=== PATIENT | female | born 1950 | race Caucasian/White ===

== ENCOUNTER → 2016-12-27 | Outpatient (CLI) | payer MEDICARE, OTHER ==
--- NOTE | 2016-12-27 11:53 | XR ---
EXAMINATION TYPE: XR knee complete LT DATE OF EXAM: 12/27/2016 11:40 AM CLINICAL HISTORY: pain TECHNIQUE: Three views of the left knee are obtained. COMPARISON: None. FINDINGS: There is no acute fracture/dislocation. The tri-compartment joint spaces moderately narro wed. Spur formation is noted.. The overlying soft tissue appears unremarkable. IMPRESSION: There is no acute fracture or dislocation ICD 10 NO FRACTURE, INITIAL EVALUATION
== END | disposition home or self-care (01) ==
LOC: RADXRMAIN 10:47
PROVIDERS: ATTEND Family Medicine
DX: M25.562 Pain in left knee (principal)

== ENCOUNTER 2017-02-21 13:16 | Emergency (ER) | payer MEDICARE, OTHER ==
--- NOTE | 2017-02-21 13:58 | ED ---
General Adult HPI - General Chief complaint: Recheck/Abnormal Lab/Rx Stated complaint: needs feeding tube replaced Time Seen by Provider: 02/21/17 13:39 Source: family, RN notes reviewed Mode of arrival: wheelchair Limitations: no limitations - History of Present Illness Initial comments: 66-year-old female presents emergency Department with a chief complaint of feeding tube needing replacement. He stated that his family members. Home. They state they've had the feeding tube for about 6 months. They state they just need to replace feeding tube. There is no pain or discomfort. They state that it is leaking. they've tried to fix at home with no improvement. They state they were concerned due to the symptoms. Patient denies any recent fever, chills, shortness of breath, chest pain, back pain, abdominal pain, nausea vomiting, numbness or tingling, dysuria or hematuria, constipation or diarrhea, headaches or visual changes, or any other current symptoms. - Related Data Home Medications Medication Instructions Recorded Confirmed Carvedilol [Coreg] 12.5 mg PEG/G-TUBE BID 03/23/14 02/21/17 Oxybutynin Chloride [Ditropan] 10 mg PEG/G-TUBE TID 03/23/14 02/21/17 clonazePAM [KlonoPIN] 1 mg PEG/G-TUBE Q8HR PRN 03/23/14 02/21/17 Ascorbic Acid [Vitamin C] 500 mg PEG/G-TUBE DAILY 09/06/14 02/21/17 Cholecalciferol [Vitamin D3] 1,000 unit PEG/G-TUBE DAILY 08/19/15 02/21/17 Insulin Detemir [Levemir] 30 unit SQ DAILY 08/19/15 02/21/17 Ipratropium-Albuterol Nebulize 3 ml INHALATION RT-Q6H PRN 08/19/15 02/21/17 [Duoneb 0.5 mg-3 mg/3 ml Soln] Ferrous Sulfate [Feosol] 325 mg PEG/G-TUBE DAILY 10/31/15 02/21/17 Insulin Aspart [NovoLOG] See Protocol SQ AC-TID PRN 10/31/15 02/21/17 Loratadine [Claritin] 10 mg PEG/G-TUBE DAILY 10/31/15 02/21/17 Omeprazole [PriLOSEC] 20 mg PEG/G-TUBE AC-BRKFST 10/31/15 02/21/17 Acetaminophen [Tylenol] 650 mg PEG/G-TUBE Q6H PRN 11/15/15 02/21/17 Fluticasone/Salmeterol [Advair 1 inhalation PO RT-BID 02/21/17 02/21/17 250-50 Diskus] Furosemide [Lasix] 40 mg PEG/G-TUBE BID 02/21/17 02/21/17 QUEtiapine [SEROquel] 100 mg PO HS 02/21/17 02/21/17 traMADol HCL [Ultram] 50 mg PO Q6HR PRN 02/21/17 02/21/17 Allergies Allergy/AdvReac Type Severity Reaction Status Date / Time aspirin AdvReac Kidney Verified 02/21/17 14:33 issues cefepime AdvReac Hallucinati Verified 02/21/17 14:33 ons Review of Systems ROS Statement: Those systems with pertinent positive or pertinent negative responses have been documented in the HPI. ROS Other: All systems not noted in ROS Statement are negative. Past Medical History Past Medical History: Atrial Fibrillation, Asthma, Diabetes Mellitus, Hearing Disorder / Deafness, Hyperlipidemia, Hypertension, Renal Disease, Skin Disorder Additional Past Medical History / Comment(s): hypercholesterol History of Any Multi-Drug Resistant Organisms: None Reported Past Surgical History: No Surgical Hx Reported Additional Past Surgical History / Comment(s): PEG tube Past Anesthesia/Blood Transfusion Reactions: No Reported Reaction Past Psychological History: Anxiety Smoking Status: Never smoker Past Alcohol Use History: None Reported Additional Past Alcohol Use History / Comment(s): Patient lives at home with her boyfriend/caregiver. Past Drug Use History: None Reported - Past Family History Mother Family Medical History: No Reported History General Exam Limitations: no limitations General appearance: alert, in no apparent distress Head exam: Present: atraumatic, normocephalic, normal inspection ENT exam: Present: normal exam, mucous membranes moist Neck exam: Present: normal inspection. Absent: tenderness, meningismus, lymphadenopathy Respiratory exam: Present: normal lung sounds bilaterally. Absent: respiratory distress, wheezes, rales, rhonchi, stridor Cardiovascular Exam: Present: regular rate, normal rhythm, normal heart sounds. Absent: systolic murmur, diastolic murmur, rubs, gallop, clicks GI/Abdominal exam: Present: soft, normal bowel sounds. Absent: distended, tenderness, guarding, rebound, rigid Neurological exam: Present: alert, oriented X3 Psychiatric exam: Present: normal affect, normal mood Skin exam: Present: warm, dry, intact, normal color. Absent: rash Course Vital Signs 02/21/17 13:25 Temperature 98.1 F Pulse Rate 73 Respiratory 20 Rate Blood Pressure 142/83 O2 Sat by Pulse 98 Oximetry Medical Decision Making - Medical Decision Making 66-year-old female presents emergency Department chief complaint of needing a feeding tube replacement. At this time patient's tube was replaced with a 20- Ukrainian with an inflatable balloon. At this time x-ray does confirm placement. This time we discussed continued follow-up and return parameters. Patient family stated he understood all cushions have been answered. They will be discharged. - Radiology Data Radiology results: report reviewed, image reviewed Disposition Clinical Impression: Complication of feeding tube, Encounter for feeding tube placement Disposition: HOME SELF-CARE Condition: Stable Instructions: Percutaneous Endoscopic Gastrostomy (ED), How to Use and Care for Your PEG Tube (ED) Additional Instructions: Please follow up with family doctor if symptoms have not improved over the next two days. Please return to the emergency room if your symptoms increase or worsen or for any other concerns. Referrals: Vishnu Malone MD [Primary Care Provider] - 1-2 days Time of Disposition: 16:53
--- NOTE | 2017-02-21 16:05 | XR ---
EXAMINATION TYPE: XR abdomen 2V DATE OF EXAM: 02/21/2017 COMPARISON: NONE HISTORY: Pain TECHNIQUE: 2 AP supine views FINDINGS: Feeding tube spherical balloon is situated over the gastric body. The bowel gas pattern is unremarkable, other than marked lam colonic stool volume. Soft tissues and skeletal structures negative for acute findings. Note: Supine radiography cannot exclude pneumoperitoneum. IMPRESSION: FEEDING TUBE.
--- NOTE | 2017-02-21 16:48 | XR ---
EXAMINATION TYPE: XR abdomen 1V - with Omnipaque 350 injection PEG-tube DATE OF EXAM: 02/21/2017 COMPARISON: NONE HISTORY: Replaced PEG tube TECHNIQUE: Supine radiograph was obtained medially following PEG tube catheter injection of 2 ounces Omnipaque 350. FINDINGS: The contrast opacifies the stomach, verifying anatomic PEG tube placement. No incidental findings, other than moderate enlargement of the cardiac silhouette. IMPRESSION: PEG tube.
[2017-02-21 17:22] VITALS: BP 131/59; PULSE 85; RESP 18; TEMP 98
== END 2017-02-21 17:17 | disposition home or self-care (01) ==
LOC: EC 13:16
DX: K94.29 Other complications of gastrostomy (principal); J45.909 Unspecified asthma, uncomplicated; E11.9 Type 2 diabetes mellitus without complications; I10 Essential (primary) hypertension; Z88.6 Allergy status to analgesic agent; Z88.8 Allergy status to other drugs, medicaments and biological substances; Z79.4 Long term (current) use of insulin; Z79.51 Long term (current) use of inhaled steroids; Z79.899 Other long term (current) drug therapy
CPT/HCPCS: 99282; 43760; 74000; Q9967

== ENCOUNTER 2017-05-21 17:53 | Emergency (ER) | payer MEDICARE, OTHER ==
--- NOTE | 2017-05-21 18:50 | ED ---
General Adult HPI - General Source: patient, RN notes reviewed, old records reviewed Mode of arrival: wheelchair Limitations: no limitations <Fina Brewer - Last Filed: 05/21/17 20:27> <Kamaljit Sky - Last Filed: 05/21/17 22:23> - General Chief complaint: Recheck/Abnormal Lab/Rx Stated complaint: Peg Tube plugged Time Seen by Provider: 05/21/17 18:04 - History of Present Illness Initial comments: 66-year-old female presents emergency Department with chief complaint of feeding tube needing replacement. Patient family reports that it is clogged. They tried to flush it with saline, and Coke. He stated there is been no help with this. Patient's caregiver relates that they put all of her medications through the PEG tube. Patient caregiver relates that they had the PEG tube replaced in February in the emergency department. Patient denies any fever or chills, chest pain, shortness breath. Denies any specific abdominal pain. Patient states that her PEG tube was originally placed by Dr. craig. (Fina Brewer) - Related Data Home Medications Medication Instructions Recorded Confirmed Oxybutynin Chloride [Ditropan] 10 mg PEG/G-TUBE TID 03/23/14 05/21/17 clonazePAM [KlonoPIN] 0.5 mg PEG/G-TUBE TID 03/23/14 05/21/17 Ascorbic Acid [Vitamin C] 500 mg PEG/G-TUBE DAILY 09/06/14 05/21/17 Cholecalciferol [Vitamin D3] 1,000 unit PEG/G-TUBE DAILY 08/19/15 05/21/17 Insulin Detemir [Levemir] 30 unit SQ DAILY 08/19/15 05/21/17 Ipratropium-Albuterol Nebulize 3 ml INHALATION RT-Q6H PRN 08/19/15 05/21/17 [Duoneb 0.5 mg-3 mg/3 ml Soln] Ferrous Sulfate [Feosol] 325 mg PEG/G-TUBE DAILY 10/31/15 05/21/17 Insulin Aspart [NovoLOG] 10 unit SQ AC-TID PRN 10/31/15 05/21/17 Omeprazole [PriLOSEC] 20 mg PEG/G-TUBE AC-BRKFST 10/31/15 05/21/17 Acetaminophen [Tylenol] 650 mg PEG/G-TUBE Q6H PRN 11/15/15 05/21/17 Fluticasone/Salmeterol [Advair 1 puff INHALATION RT-BID 02/21/17 05/21/17 250-50 Diskus] QUEtiapine [SEROquel] 100 mg PEG/G-TUBE HS 02/21/17 05/21/17 traMADol HCL [Ultram] 50 mg PEG/G-TUBE Q6HR PRN 02/21/17 05/21/17 Allopurinol [Zyloprim] 100 mg PEG/G-TUBE DAILY 05/21/17 05/21/17 Carvedilol [Coreg] 3.125 mg PEG/G-TUBE BID 05/21/17 05/21/17 Furosemide [Lasix] 40 mg PEG/G-TUBE BID 05/21/17 05/21/17 Losartan Potassium [Cozaar] 25 mg PEG/G-TUBE DAILY 05/21/17 05/21/17 Simvastatin [Zocor] 40 mg PEG/G-TUBE HS 05/21/17 05/21/17 Allergies Allergy/AdvReac Type Severity Reaction Status Date / Time aspirin AdvReac Kidney Verified 05/21/17 18:42 issues cefepime AdvReac Hallucinati Verified 05/21/17 18:42 ons Review of Systems ROS Other: All systems not noted in ROS Statement are negative. <Fina Brewer - Last Filed: 05/21/17 20:27> ROS Other: All systems not noted in ROS Statement are negative. <Kamaljit Sky - Last Filed: 05/21/17 22:23> ROS Statement: Those systems with pertinent positive or pertinent negative responses have been documented in the HPI. Past Medical History Past Medical History: Atrial Fibrillation, Asthma, Diabetes Mellitus, Hearing Disorder / Deafness, Hyperlipidemia, Hypertension, Renal Disease, Skin Disorder Additional Past Medical History / Comment(s): hypercholesterol, basestem stroke , difficulty swallowing History of Any Multi-Drug Resistant Organisms: None Reported Past Surgical History: No Surgical Hx Reported Additional Past Surgical History / Comment(s): PEG tube Past Anesthesia/Blood Transfusion Reactions: No Reported Reaction Past Psychological History: Anxiety Smoking Status: Never smoker Past Alcohol Use History: None Reported Past Drug Use History: None Reported - Past Family History Mother Family Medical History: No Reported History <Fina Brewer - Last Filed: 05/21/17 20:27> General Exam Limitations: no limitations General appearance: alert, in no apparent distress Head exam: Present: atraumatic, normocephalic, normal inspection Eye exam: Present: normal appearance, PERRL, EOMI. Absent: scleral icterus, conjunctival injection, periorbital swelling ENT exam: Present: normal exam, mucous membranes moist Neck exam: Present: normal inspection. Absent: tenderness, meningismus, lymphadenopathy Respiratory exam: Present: normal lung sounds bilaterally. Absent: respiratory distress, wheezes, rales, rhonchi, stridor Cardiovascular Exam: Present: regular rate, normal rhythm, normal heart sounds. Absent: systolic murmur, diastolic murmur, rubs, gallop, clicks GI/Abdominal exam: Present: soft, normal bowel sounds, other (20-Swazi PEG tube noted. Mild erythema and drainage noted around the ostomy site.). Absent : distended, tenderness, guarding, rebound, rigid Extremities exam: Present: normal inspection, full ROM, normal capillary refill. Absent: tenderness, pedal edema, joint swelling, calf tenderness Back exam: Present: normal inspection Neurological exam: Present: alert, oriented X3, CN II-XII intact Psychiatric exam: Present: normal affect, normal mood Skin exam: Present: warm, dry, intact, normal color. Absent: rash <Fina Brewer - Last Filed: 05/21/17 20:27> <Kamaljit Sky - Last Filed: 05/21/17 22:23> - General Exam Comments Initial Comments: 67-year-old female. No acute distress. (Fina Brewer) Course <Fina Brewer - Last Filed: 05/21/17 20:27> <Kamaljit Sky - Last Filed: 05/21/17 22:23> Vital Signs 05/21/17 05/21/17 17:54 19:38 Temperature 98.6 F 98.3 F Pulse Rate 87 80 Respiratory 18 18 Rate Blood Pressure 136/80 149/71 O2 Sat by Pulse 95 96 Oximetry - Reevaluation(s) Reevaluation #1: 05/21/17 20:28 I attempted multiple times to flush with normal saline and soda. There is a significant clot at the end of the PEG tube. At this time I tried to remove the PEG tube. I drained over 10 mL from the catheter balloon. When I do attempt to pull at the PEG tube there is significant resistance. When I pull at the peg tube with further force the patient yells in increasing pain. I also attempted to remove it with Dr. Berkowitz and he does not feel comfortable removing it at this time. Patient case discussed with Dr. Olivo at 8:30. Patient case of will be taken over by Dr. Olivo after this time. (Fina Brewer) 05/21/17 21:56 Case was endorsed to myself. Patient was reevaluated and PEG tube was completely removed without difficulty. Previous x-ray question placement of the PEG tube. PEG tube was replaced without difficulty. Repeat x-ray with contrast will be ordered. Family states he did use a small flexible wire to try to clean out the inside of the lumen. Family states he did not go past the skin with this and he is certain of this. Family was made aware that if he did go past the skin and then computed tomography scan would be indicated to rule out any sort of potential bowel injury. Family states this is not necessary. ( Kamaljit Sky) Procedures - Feeding Tube Replacement Reason for Replacement: not functioning/damaged Initial Tube Inserted: greater than 2 weeks Type of Tube: other (Peg) Use of Tube: medications and feeding Insertion Site Prior to Procedure: clean Tube Used for Reinsertion: other (PEG tube) Anesthesia Used: other anesthetic (Topical lidocaine) Amount of Anesthesia Used (mls): 2 Verification of Placement: gastrografin injection Tube Secured by: G-tube attachment device Patient Tolerated Procedure: well, no complications <Kamaljit Sky - Last Filed: 05/21/17 22:23> Medical Decision Making <Fina Brewer - Last Filed: 05/21/17 20:27> - Radiology Data Radiology results: image reviewed (Original x-ray has question of contrast in the gastric lumen versus other. Repeat x-ray post PEG tube replacement shows appropriate placement with Gastrografin in the gastric lumen.) <Kamaljit Sky - Last Filed: 05/21/17 22:23> - Medical Decision Making 67-year-old female with a history of PEG tube placed in the ER in February 2016 concerning that the PEG tube is clogged. Patient did tell PEG tube originally placed by Dr. Craig over a year ago. Multiple times were made to unclog the PEG tube with saline, as well as Coke. I attempted to remove the peg tube to replace it with another, there was significant resistance. I did deflate the full catheter at the end with over 10 mL of fluid. When I attempt to remove the Peg Tube, patient yells in pain. It feels as if there is a large bolus preventing the tube to be removed. KUB ordered. Patient's case was handed over to Dr. Barahona 8:30 PM. (Fina Brewer) Patient reexamined and symptom-free. Family advised to have patient follow-up with Dr. Goins tomorrow for further evaluation. Advised to return for any problems with PEG tube or pain or fever. PEG tube did flush and return fluid without difficulty. (Kamaljit Sky) Disposition <Fina Brewer - Last Filed: 05/21/17 20:27> <Kamaljit Sky - Last Filed: 05/21/17 22:23> Clinical Impression: S/P percutaneous endoscopic gastrostomy (PEG) tube placement, PEG tube malfunction Disposition: HOME SELF-CARE Condition: Stable Instructions: How to Use and Care for Your PEG Tube (ED) Additional Instructions: Please follow-up with your primary care physician and surgeon tomorrow for further evaluation of PEG tube. Return for fever, abdominal pain, peg tube not working, worsening symptoms or any other concerns. Referrals: Vishnu Malone MD [Primary Care Provider] - 1-2 days Calvin Genao MD [Medical Doctor] - 1-2 days
[2017-05-21] MEDS ORDERED: LIDOCAINE URO-JET JELLY 2% 5 ML KIT URETHRAL ONE (19:28)
--- NOTE | 2017-05-21 21:04 | XR ---
EXAMINATION TYPE: XR KUB portable DATE OF EXAM: 05/21/2017 COMPARISON: 02/21/2017 HISTORY: 67-year-old female with a PEG tube placement, pain. TECHNIQUE: 5 mL of Omnipaque 350 was injected through the patient's PEG tube. FINDINGS: PEG tube is present injecting over the left upper quadrant. Motion artifacts due to patient's large b lauren habitus. Some amorphous collection of contrast is suggested at the peripheral left upper quadrant . Unable to definitively characterize this as within the gastric lumen. Nonspecific, overall nonobstr uctive bowel gas pattern. IMPRESSION: There is a PEG tube present. Injection of the PEG tube shows amorphous collection of contrast in the peripheral left upper quadrant. Unable to definitively characterize this as within the gastric lumen. Consider repeat injection with a higher quality exam in the department. Displaced catheter not exclu ded at this time.
--- NOTE | 2017-05-21 22:06 | XR ---
EXAMINATION TYPE: XR abdomen 1V with injection DATE OF EXAM: 05/21/2017 CLINICAL DATA: 67-year-old female assess PEG tube placement, [facility] COMPARISON: Earlier today TECHNIQUE: 40 mL Omnipaque 350 was injected through the patient's PEG tube. FINDINGS: PEG tube injection shows opacification of the gastric lumen. Nonspecific, overall nonobstructive adry l gas pattern. Supine imaging limited for assessment of free air. IMPRESSION: Injection through the patient's PEG tube shows contrast opacifying the gastric lumen suggesting appro priate catheter positioning.
[2017-05-21 22:48] VITALS: BP 132/71; PULSE 77; RESP 16; TEMP 98.1
== END 2017-05-21 22:46 | disposition home or self-care (01) ==
LOC: EC 17:53
DX: K94.23 Gastrostomy malfunction (principal); I48.91 Unspecified atrial fibrillation; J45.909 Unspecified asthma, uncomplicated; E11.9 Type 2 diabetes mellitus without complications; I10 Essential (primary) hypertension; E78.00 Pure hypercholesterolemia, unspecified; F41.9 Anxiety disorder, unspecified; Z88.1 Allergy status to other antibiotic agents; Z88.6 Allergy status to analgesic agent; Z79.02 Long term (current) use of antithrombotics/antiplatelets; Z79.4 Long term (current) use of insulin; Z79.51 Long term (current) use of inhaled steroids; Z79.899 Other long term (current) drug therapy
CPT/HCPCS: 99283; 43760; 74000 ×2; Q9967

== ENCOUNTER 2017-05-26 18:34 | Emergency (ER) | payer MEDICARE, OTHER ==
[2017-05-26 19:23] VITALS: RESP 20
[2017-05-26] MEDS ORDERED: LIDOCAINE URO-JET JELLY 2% 5 ML KIT URETHRAL ONE ×2 (20:48→20:49)
--- NOTE | 2017-05-26 20:55 | ED ---
General Adult HPI - General Chief complaint: Recheck/Abnormal Lab/Rx Stated complaint: PLUGGED PEG TUBE Time Seen by Provider: 05/26/17 19:34 Source: patient Mode of arrival: wheelchair Limitations: no limitations - History of Present Illness Initial comments: 67 years old female she is here for about feeding tube, she was here a few days ago. To was replaced at that point, she does get her pills crushed and pushed 72 family noticed any caregiver noticed that it was not working this after this afternoon. She denies any abdominal pain no fever no chills him in review of system is absolutely normal except the above blocked feeding tube - Related Data Home Medications Medication Instructions Recorded Confirmed Oxybutynin Chloride [Ditropan] 10 mg PEG/G-TUBE TID 03/23/14 05/26/17 clonazePAM [KlonoPIN] 0.5 mg PEG/G-TUBE TID 03/23/14 05/26/17 Ascorbic Acid [Vitamin C] 500 mg PEG/G-TUBE DAILY 09/06/14 05/26/17 Insulin Detemir [Levemir] 30 unit SQ DAILY 08/19/15 05/26/17 Ferrous Sulfate [Feosol] 325 mg PEG/G-TUBE DAILY 10/31/15 05/26/17 Insulin Aspart [NovoLOG] See Protocol SQ AC-TID 10/31/15 05/26/17 Omeprazole [PriLOSEC] 20 mg PEG/G-TUBE DAILY 10/31/15 05/26/17 Acetaminophen [Tylenol] 650 mg PEG/G-TUBE Q6H PRN 11/15/15 05/26/17 QUEtiapine [SEROquel] 100 mg PEG/G-TUBE HS 02/21/17 05/26/17 traMADol HCL [Ultram] 50 mg PEG/G-TUBE Q6HR PRN 02/21/17 05/26/17 Allopurinol [Zyloprim] 100 mg PEG/G-TUBE DAILY 05/21/17 05/26/17 Carvedilol [Coreg] 3.125 mg PEG/G-TUBE BID 05/21/17 05/26/17 Furosemide [Lasix] 40 mg PEG/G-TUBE BID 05/21/17 05/26/17 Losartan Potassium [Cozaar] 25 mg PEG/G-TUBE DAILY 05/21/17 05/26/17 Simvastatin [Zocor] 40 mg PEG/G-TUBE HS 05/21/17 05/26/17 Albuterol Nebulized [Ventolin 2.5 mg INHALATION RT-Q6H PRN 05/26/17 05/26/17 Nebulized] Cholecalciferol [Vitamin D3] 400 unit PEG/G-TUBE DAILY 05/26/17 05/26/17 Fluticasone/Salmeterol [Advair 1 puff INHALATION RT-BID 05/26/17 05/26/17 500-50 Diskus] Allergies Allergy/AdvReac Type Severity Reaction Status Date / Time aspirin AdvReac Kidney Verified 05/26/17 20:28 issues cefepime AdvReac Hallucinati Verified 05/26/17 20:28 ons Review of Systems ROS Statement: Those systems with pertinent positive or pertinent negative responses have been documented in the HPI. ROS Other: All systems not noted in ROS Statement are negative. Past Medical History Past Medical History: Atrial Fibrillation, Asthma, Diabetes Mellitus, Hearing Disorder / Deafness, Hyperlipidemia, Hypertension, Renal Disease, Skin Disorder Additional Past Medical History / Comment(s): hypercholesterol, basestem stroke , difficulty swallowing History of Any Multi-Drug Resistant Organisms: None Reported Past Surgical History: No Surgical Hx Reported Additional Past Surgical History / Comment(s): PEG tube Past Anesthesia/Blood Transfusion Reactions: No Reported Reaction Past Psychological History: Anxiety Smoking Status: Never smoker Past Alcohol Use History: None Reported Past Drug Use History: None Reported - Past Family History Mother Family Medical History: No Reported History General Exam - General Exam Comments Initial Comments: General: The patient is awake and alert, in no distress, and does not appear acutely ill. Skin: Skin is warm and dry and no rashes or lesions are noted. Eye: Pupils are equal, round and reactive to light, extra-ocular movements are intact; there is normal conjunctiva bilaterally. Ears, nose, mouth and throat: There are moist mucous membranes and no oral lesions. Neck: The neck is supple, there is no tenderness or JVD. Cardiovascular: There is a regular rate and rhythm. No murmur, rub or gallop is appreciated. Respiratory: To auscultation bilateral, no wheezing no rhonchi no distress respiratory espinal noticed Gastrointestinal: Soft, soft nontender positive bowel sounds no guarding no rebounds noticed mild erythema around the dressing area after feeding tube Back: There is no tenderness to palpation in the midline. There is no obvious deformity. Musculoskeletal: Normal ROM, no tenderness, There is no pedal edema. There is no calf tenderness or swelling. No cords were appreciated. Neurological: CN II-XII intact, Cranial nerves III through XII are intact. There are no obvious motor or sensory deficits. Coordination appears grossly intact. Speech is normal. Psychiatric: Cooperative, appropriate mood & affect, normal judgment. Limitations: no limitations Course Vital Signs 05/26/17 05/26/17 18:50 19:22 Temperature 100.1 F H Pulse Rate 83 98 Respiratory 18 20 Rate Blood Pressure 97/72 130/73 O2 Sat by Pulse 95 95 Oximetry Procedures - Feeding Tube Replacement Reason for Replacement: not functioning/damaged Initial Tube Inserted: less than 2 weeks Type of Tube: gastrostomy Use of Tube: medications and feeding Insertion Site Prior to Procedure: clean Anesthesia Used: Lidocaine 1% Amount of Anesthesia Used (mls): 5 Uzbek Tube Size (F): 20 Verification of Placement: auscultation Tube Secured by: tape/dressing Patient Tolerated Procedure: well (no complication) Disposition Clinical Impression: Visit for feeding tube placement Disposition: HOME SELF-CARE Condition: Good Referrals: Vishnu Malone MD [Primary Care Provider] - 1-2 days
[2017-05-26 21:13] VITALS: BP 152/71; PULSE 87; TEMP 98.3
== END 2017-05-26 21:10 | disposition home or self-care (01) ==
LOC: EC 18:34
DX: Z43.1 Encounter for attention to gastrostomy (principal); I48.91 Unspecified atrial fibrillation; J45.909 Unspecified asthma, uncomplicated; E11.9 Type 2 diabetes mellitus without complications; E78.5 Hyperlipidemia, unspecified; I10 Essential (primary) hypertension; F41.9 Anxiety disorder, unspecified; Z79.4 Long term (current) use of insulin; Z79.51 Long term (current) use of inhaled steroids; Z79.899 Other long term (current) drug therapy; Z88.1 Allergy status to other antibiotic agents; Z88.6 Allergy status to analgesic agent
CPT/HCPCS: 43760; 99282

== ENCOUNTER → 2017-06-16 | Outpatient (CLI) | payer MEDICARE, OTHER ==
[2017-06-16 12:40] LABS: Anisocytosis Slight; CH 31.6; CHCM 31.9; HCT 40.1 % (34.0-46.0); HDW 2.55; HGB 12.5 gm/dL (11.4-16.0); MCH 31.1 pg (25.0-35.0); MCHC 31.2 g/dL (31.0-37.0); MCV 99.7 fL (80.0-100.0); Macrocytosis Slight; Mean Platelet Volume 8.1; RBC 4.03 m/uL (3.80-5.40); WBC 10.3 k/uL (3.8-10.6)
[2017-06-16 12:50] LABS: Anion Gap 13 mmol/L; Blood Urea Nitrogen 34 mg/dL (7-17); Calcium 9.7 mg/dL (8.4-10.2); Carbon Dioxide 35 mmol/L (22-30); Chloride 96 mmol/L (98-107); Glucose 157 mg/dL (74-99); Magnesium 2.3 mg/dL (1.6-2.3); Non-African American GFR(MDRD) 58 (>60 ml/min/1.73 sqM); Phosphorous 4.2 mg/dL (2.5-4.5); Potassium 4.3 mmol/L (3.5-5.1); Sodium 144 mmol/L (137-145); Uric Acid 7.1 mg/dL (3.7-7.4)
[2017-06-16 18:24] LABS: Iron Saturation 36.47 (12.00-45.00)
== END | disposition home or self-care (01) ==
LOC: LABWHC1 12:06
PROVIDERS: ATTEND Nurse Practitioner Family
DX: N18.3 Chronic kidney disease, stage 3 (moderate) (principal); D64.9 Anemia, unspecified; R80.9 Proteinuria, unspecified; E55.9 Vitamin D deficiency, unspecified; M10.9 Gout, unspecified
CPT/HCPCS: 36415; 80048; 82306; 82728; 83540; 83550; 83735; 83970; 84100; 84550; 85027

== ENCOUNTER → 2017-07-04 | Outpatient (CLI) | payer MEDICARE, OTHER ==
[2017-07-04 12:14] LABS: Basophils % (A) 0 %; CH 31.1; CHCM 31.6; Eosinophils # (A) 0.4 k/uL (0-0.7); Eosinophils % (A) 3 %; HCT 39.4 % (34.0-46.0); HDW 2.56; HGB 12.3 gm/dL (11.4-16.0); Hypochromasia Slight; Luc # (Auto) 0.12; Luc % (Auto) 1; Lymphocytes # (A) 1.5 k/uL (1.0-4.8); Lymphocytes % (A) 14 %; MCH 30.9 pg (25.0-35.0); MCHC 31.1 g/dL (31.0-37.0); MCV 99.2 fL (80.0-100.0); Macrocytosis Slight; Mean Platelet Volume 7.9; Monocytes # (A) 0.4 k/uL (0-1.0); Monocytes % (A) 4 %; Neutrophils # (A) 8.4 k/uL (1.3-7.7); Neutrophils % (A) 77 %; RBC 3.97 m/uL (3.80-5.40); RDW 15.8 % (11.5-15.5); WBC 10.9 k/uL (3.8-10.6)
[2017-07-04 12:40] LABS: ALT 27 U/L (9-52); AST 23 U/L (14-36); Alkaline Phosphatase 101 U/L (38-126); Anion Gap 15 mmol/L; Blood Urea Nitrogen 52 mg/dL (7-17); Calcium 9.7 mg/dL (8.4-10.2); Carbon Dioxide 28 mmol/L (22-30); Chloride 100 mmol/L (98-107); Cholesterol 126 mg/dL (<200); Glucose 136 mg/dL (74-99); HDL Cholesterol 40 mg/dL (40-60); Non-African American GFR(MDRD) 55 (>60 ml/min/1.73 sqM); Potassium 4.2 mmol/L (3.5-5.1); Sodium 143 mmol/L (137-145); Total Bilirubin 0.4 mg/dL (0.2-1.3); Total Protein 8.4 g/dL (6.3-8.2)
== END | disposition home or self-care (01) ==
LOC: LABWHC1 11:26
PROVIDERS: ATTEND Family Medicine
DX: E78.5 Hyperlipidemia, unspecified (principal); E55.9 Vitamin D deficiency, unspecified; R53.81 Other malaise; Z13.220 Encounter for screening for lipoid disorders
CPT/HCPCS: 36415; 80053; 80061; 82306; 84439; 84443; 85025

== ENCOUNTER → 2017-12-05 | Outpatient (CLI) | payer MEDICARE, OTHER ==
--- NOTE | 2017-12-07 12:40 | MM ---
Reason for exam: screening (asymptomatic). Last mammogram was performed 2 years and 10 months ago. History: Patient is postmenopausal. Family history of breast cancer in maternal cousin. Took hormonal contraceptives for 2 years beginning at age 23. Physical Findings: A clinical breast exam by your physician is recommended on an annual basis and results should be correlated with mammographic findings. MG Screening Mammo w CAD Bilateral CC and MLO view(s) were taken. Prior study comparison: January 22, 2015, bilateral MG screening mammo w CAD. July 30, 2012, bilateral digital screening mammo w/CAD. There are scattered fibroglandular densities. Scattered vascular and secretory calcifications. Patient limitations pectoralis could not be included on the MLO views. No significant changes when compared with prior studies. ASSESSMENT: Negative, BI-RAD 1 RECOMMENDATION: Routine screening mammogram of both breasts in 1 year. Manage patient on a clinical basis. Yeast infection along undersurface of the breast.
== END | disposition home or self-care (01) ==
LOC: RADMAMWWP 13:09
PROVIDERS: ATTEND Family Medicine
DX: Z12.31 Encounter for screening mammogram for malignant neoplasm of breast (principal)
CPT/HCPCS: 77067

== ENCOUNTER → 2017-12-05 | Outpatient (CLI) | payer MEDICARE, OTHER ==
[2017-12-05 14:55] LABS: Calcium 10.2 mg/dL (8.4-10.2); Magnesium 2.2 mg/dL (1.6-2.3); Phosphorus 3.9 mg/dL (2.5-4.5); Potassium 4.7 mmol/L (3.5-5.1); Uric Acid 7.9 mg/dL (3.7-7.4)
[2017-12-05 15:32] LABS: Basophils # (A) 0.1 k/uL (0-0.2); Basophils % (A) 0 %; Eosinophils # (A) 0.2 k/uL (0-0.7); Eosinophils % (A) 1 %; HCT 43.6 % (34.0-46.0); HGB 13.5 gm/dL (11.4-16.0); Hypochromasia Slight; Lymphocytes # (A) 1.3 k/uL (1.0-4.8); Lymphocytes % (A) 7 %; MCH 30.4 pg (25.0-35.0); Mean Platelet Volume 9.3; Monocytes # (A) 0.5 k/uL (0-1.0); Monocytes % (A) 3 %; Neutrophils # (A) 16.1 k/uL (1.3-7.7); Neutrophils % (A) 88 %; Platelet Count 186 k/uL (150-450); RBC 4.44 m/uL (3.80-5.40); WBC 18.3 k/uL (3.8-10.6)
[2017-12-05 19:37] LABS: Iron Saturation 22.07 (12.00-45.00)
[2017-12-05 19:46] LABS: Vitamin D 25 Hydroxy 41.1 ng/mL (30.0-100.0)
[2017-12-05 20:44] LABS: Parathyroid Hormone Intact 63.4 pg/mL (14.0-72.0)
== END | disposition home or self-care (01) ==
LOC: LABWHC1 13:54
PROVIDERS: ATTEND Nurse Practitioner Family
DX: R80.9 Proteinuria, unspecified (principal); M10.9 Gout, unspecified; N39.0 Urinary tract infection, site not specified; D63.1 Anemia in chronic kidney disease; N18.3 Chronic kidney disease, stage 3 (moderate); N25.81 Secondary hyperparathyroidism of renal origin
CPT/HCPCS: 36415; 80048; 82306; 82728; 83540; 83550; 83735; 83970; 84100; 84550; 85025

== ENCOUNTER 2018-03-03 14:42 | Inpatient (IN) | payer MEDICARE, OTHER ==
[2018-03-03] MEDS ORDERED: SODIUM CHLORIDE 0.9% 1,000 ML IV ONE ×2 (14:59→16:15)
--- NOTE | 2018-03-03 15:01 | ED ---
General Adult HPI - General Chief complaint: Altered Mental Status Stated complaint: Sepsis Time Seen by Provider: 03/03/18 14:59 Source: patient, EMS, RN notes reviewed, old records reviewed Mode of arrival: EMS Limitations: altered mental status - History of Present Illness Initial comments: 67-year-old female presenting with altered mental status. According to EMS patient has had progressive weakness and confusion over the past 4 days. EMS did report an elevated temperature at 101. Patient is confused and unable to contribute to the history. According EMS patient was being treated for urinary tract infection. - Related Data Home Medications Medication Instructions Recorded Confirmed Oxybutynin Chloride [Ditropan] 10 mg PEG/G-TUBE TID 03/23/14 03/03/18 clonazePAM [KlonoPIN] 0.5 mg PEG/G-TUBE TID 03/23/14 03/03/18 Ascorbic Acid [Vitamin C] 500 mg PEG/G-TUBE DAILY 09/06/14 03/03/18 Insulin Detemir [Levemir] 30 unit SQ DAILY 08/19/15 03/03/18 Ferrous Sulfate [Feosol] 325 mg PEG/G-TUBE DAILY 10/31/15 03/03/18 Insulin Aspart [NovoLOG 10 unit SQ AC-TID 10/31/15 03/03/18 (formulary)] Omeprazole [PriLOSEC] 20 mg PEG/G-TUBE DAILY 10/31/15 03/03/18 QUEtiapine [SEROquel] 100 mg PEG/G-TUBE HS 02/21/17 03/03/18 traMADol HCL [Ultram] 50 mg PEG/G-TUBE Q6HR PRN 02/21/17 03/03/18 Allopurinol [Zyloprim] 100 mg PEG/G-TUBE DAILY 05/21/17 03/03/18 Carvedilol [Coreg] 3.125 mg PEG/G-TUBE BID 05/21/17 03/03/18 Furosemide [Lasix] 40 mg PEG/G-TUBE BID 05/21/17 03/03/18 Losartan Potassium [Cozaar] 25 mg PEG/G-TUBE DAILY 05/21/17 03/03/18 Simvastatin [Zocor] 40 mg PEG/G-TUBE HS 05/21/17 03/03/18 Albuterol Nebulized [Ventolin 2.5 mg INHALATION RT-Q6H PRN 05/26/17 03/03/18 Nebulized] Cholecalciferol [Vitamin D3] 400 unit PEG/G-TUBE DAILY 05/26/17 03/03/18 Fluticasone/Salmeterol [Advair 1 puff INHALATION RT-BID 05/26/17 03/03/18 500-50 Diskus] Albuterol Inhaler [Ventolin Hfa 2 puff INHALATION RT-Q4H PRN 03/03/18 03/03/18 Inhaler] Ondansetron [Zofran ODT] 4 mg PO Q8HR PRN 03/03/18 03/03/18 Allergies Allergy/AdvReac Type Severity Reaction Status Date / Time aspirin AdvReac Kidney Verified 03/03/18 15:22 issues cefepime AdvReac Hallucinati Verified 03/03/18 15:22 ons Review of Systems ROS Statement: Those systems with pertinent positive or pertinent negative responses have been documented in the HPI. ROS Other: All systems not noted in ROS Statement are negative. Past Medical History Past Medical History: Atrial Fibrillation, Asthma, Diabetes Mellitus, Hearing Disorder / Deafness, Hyperlipidemia, Hypertension, Renal Disease, Skin Disorder Additional Past Medical History / Comment(s): hypercholesterol, basestem stroke , difficulty swallowing History of Any Multi-Drug Resistant Organisms: None Reported Past Surgical History: No Surgical Hx Reported Additional Past Surgical History / Comment(s): PEG tube Past Anesthesia/Blood Transfusion Reactions: No Reported Reaction Past Psychological History: Anxiety Smoking Status: Never smoker Past Alcohol Use History: None Reported Past Drug Use History: None Reported - Past Family History Mother Family Medical History: No Reported History General Exam Limitations: altered mental status General appearance: lethargic Head exam: Present: atraumatic, normocephalic Eye exam: Present: normal appearance, PERRL ENT exam: Present: mucous membranes dry Neck exam: Present: normal inspection. Absent: tenderness, meningismus Respiratory exam: Present: rhonchi, decreased breath sounds Cardiovascular Exam: Present: regular rate, normal rhythm GI/Abdominal exam: Present: soft, distended. Absent: tenderness, guarding Extremities exam: Present: normal inspection, normal capillary refill. Absent: pedal edema Neurological exam: Present: motor sensory deficit Skin exam: Present: warm, dry, intact. Absent: cyanosis, diaphoretic Course Vital Signs 03/03/18 03/03/18 03/03/18 14:45 15:12 15:50 Temperature 98.8 F Pulse Rate 91 87 87 Respiratory 20 22 20 Rate Blood Pressure 113/59 102/55 106/56 O2 Sat by Pulse 95 98 97 Oximetry 03/03/18 03/03/18 16:45 17:56 Temperature 98.8 F Pulse Rate 89 89 Respiratory 20 20 Rate Blood Pressure 106/53 134/80 O2 Sat by Pulse 96 98 Oximetry EKG Findings - EKG Comments: EKG Findings:: EKG: Atrial fibrillation, left bundle, PVC, left axis deviation, rate of 94, QRS duration 156, QTC 507, patient has history of left bundle reviewed on previous EKG. Medical Decision Making - Medical Decision Making 67-year-old female presenting with worsening confusion and weakness. Patient does have history of chronic renal failure. Laboratory studies reveal a creatinine of 4.0 from recent baseline of 0.90. She does appear very dehydrated on exam. She has a BUN of 111 which is likely the cause of her confusion. Mild leukocytosis at 12.3, as well as turbid urine with greater than 182 white blood cells. This may also be contributing to her altered mental status and weakness. CT shows no intercranial hemorrhage, there is severe sphenoid sinusitis. Chest x-ray shows pulmonary vascular congestion versus pneumonia. Patient is started on antibiotics and given IV hydration. She will be admitted for further antibiotics and IV hydration. Cardiology and nephrology will be placed on consult. Case is discussed with Dr. Alonzo, who will accept the admission. - Lab Data Result diagrams: 03/03/18 15:00 03/03/18 15:00 Lab Results 03/03/18 03/03/18 03/03/18 Range/Units 14:46 15:00 15:00 WBC 12.3 H (3.8-10.6) k/uL RBC 3.26 L (3.80-5.40) m/uL Hgb 10.1 L (11.4-16.0) gm/dL Hct 31.2 L (34.0-46.0) % MCV 95.7 (80.0-100.0) fL MCH 31.1 (25.0-35.0) pg MCHC 32.5 (31.0-37.0) g/dL RDW 15.3 (11.5-15.5) % Plt Count 176 (150-450) k/uL Neutrophils % 85 % Lymphocytes % 7 % Monocytes % 4 % Eosinophils % 2 % Basophils % 0 % Neutrophils # 10.5 H (1.3-7.7) k/uL Lymphocytes # 0.8 L (1.0-4.8) k/uL Monocytes # 0.5 (0-1.0) k/uL Eosinophils # 0.2 (0-0.7) k/uL Basophils # 0.0 (0-0.2) k/uL PT (9.0-12.0) sec INR (<1.2) APTT (22.0-30.0) sec VBG pH (7.31-7.41) VBG pCO2 (37-51) mmHg VBG HCO3 (24-28) mmol/L Sodium (137-145) mmol/L Potassium (3.5-5.1) mmol/L Chloride (98-107) mmol/L Carbon Dioxide (22-30) mmol/L Anion Gap mmol/L BUN (7-17) mg/dL Creatinine (0.52-1.04) mg/dL Est GFR (CKD-EPI)AfAm (>60 ml/min/1.73 sqM) Est GFR (CKD-EPI)NonAf (>60 ml/min/1.73 sqM) Glucose (74-99) mg/dL POC Glucose (mg/dL) 179 H (75-99) mg/dL POC Glu [place] Spinner Zafar Durbin Calcium (8.4-10.2) mg/dL Total Bilirubin (0.2-1.3) mg/dL AST (14-36) U/L ALT (9-52) U/L Alkaline Phosphatase (38-126) U/L Total Creatine Kinase 248 H (30-135) U/L CK-MB (CK-2) 3.8 H* (0.0-2.4) ng/mL CK-MB (CK-2) Rel Index 1.5 Troponin I 0.018 (0.000-0.034) ng/mL Total Protein (6.3-8.2) g/dL Albumin (3.5-5.0) g/dL Urine Color Urine Appearance (Clear) Urine pH (5.0-8.0) Ur Specific [place] (1.001-1.035) Urine Protein (Negative) Urine Glucose (UA) (Negative) Urine Ketones (Negative) Urine Blood (Negative) Urine Nitrite (Negative) Urine Bilirubin (Negative) Urine Urobilinogen (<2.0) mg/dL Ur Leukocyte Esterase (Negative) Urine RBC (0-5) /hpf Urine WBC (0-5) /hpf Urine WBC Clumps (None) /hpf Urine Bacteria (None) /hpf Urine Opiates Screen (NotDetected) Ur Oxycodone Screen (NotDetected) Urine Methadone Screen (NotDetected) Ur Propoxyphene Screen (NotDetected) Ur Barbiturates Screen (NotDetected) U Tricyclic Antidepress (NotDetected) Ur Phencyclidine Scrn (NotDetected) Ur Amphetamines Screen (NotDetected) U Methamphetamines Scrn (NotDetected) U Benzodiazepines Scrn (NotDetected) Urine Cocaine Screen (NotDetected) U Marijuana (THC) Screen (NotDetected) 03/03/18 03/03/18 03/03/18 Range/Units 15:00 15:00 15:00 WBC (3.8-10.6) k/uL RBC (3.80-5.40) m/uL Hgb (11.4-16.0) gm/dL Hct (34.0-46.0) % MCV (80.0-100.0) fL MCH (25.0-35.0) pg MCHC (31.0-37.0) g/dL RDW (11.5-15.5) % Plt Count (150-450) k/uL Neutrophils % % Lymphocytes % % Monocytes % % Eosinophils % % Basophils % % Neutrophils # (1.3-7.7) k/uL Lymphocytes # (1.0-4.8) k/uL Monocytes # (0-1.0) k/uL Eosinophils # (0-0.7) k/uL Basophils # (0-0.2) k/uL PT 9.5 (9.0-12.0) sec INR 1.0 (<1.2) APTT 22.8 (22.0-30.0) sec VBG pH (7.31-7.41) VBG pCO2 (37-51) mmHg VBG HCO3 (24-28) mmol/L Sodium 131 L (137-145) mmol/L Potassium 5.2 H (3.5-5.1) mmol/L Chloride 88 L (98-107) mmol/L Carbon Dioxide 26 (22-30) mmol/L Anion Gap 17 mmol/L BUN 111 H* (7-17) mg/dL Creatinine 4.00 H (0.52-1.04) mg/dL Est GFR (CKD-EPI)AfAm 12 (>60 ml/min/1.73 sqM) Est GFR (CKD-EPI)NonAf 11 (>60 ml/min/1.73 sqM) Glucose 138 H (74-99) mg/dL POC Glucose (mg/dL) (75-99) mg/dL POC Glu Riv[place] Spinner ID Calcium 8.8 (8.4-10.2) mg/dL Total Bilirubin 1.0 (0.2-1.3) mg/dL AST 48 H (14-36) U/L ALT 38 (9-52) U/L Alkaline Phosphatase 171 H (38-126) U/L Total Creatine Kinase (30-135) U/L CK-MB (CK-2) (0.0-2.4) ng/mL CK-MB (CK-2) Rel Index Troponin I (0.000-0.034) ng/mL Total Protein 6.6 (6.3-8.2) g/dL Albumin 3.2 L (3.5-5.0) g/dL Urine Color Dark Yellow Urine Appearance Turbid H (Clear) Urine pH 5.5 (5.0-8.0) Ur Specific [place] 1.020 (1.001-1.035) Urine Protein 2+ H (Negative) Urine Glucose (UA) Negative (Negative) Urine Ketones Trace H (Negative) Urine Blood Moderate H (Negative) Urine Nitrite Negative (Negative) Urine Bilirubin Negative (Negative) Urine Urobilinogen 4.0 (<2.0) mg/dL Ur Leukocyte Esterase Large H (Negative) Urine RBC 21 H (0-5) /hpf Urine WBC >182 H (0-5) /hpf Urine WBC Clumps Many H (None) /hpf Urine Bacteria Many H (None) /hpf Urine Opiates Screen Not Detected (NotDetected) Ur Oxycodone Screen Not Detected (NotDetected) Urine Methadone Screen Not Detected (NotDetected) Ur Propoxyphene Screen Not Detected (NotDetected) Ur Barbiturates Screen Not Detected (NotDetected) U Tricyclic Antidepress Detected H (NotDetected) Ur Phencyclidine Scrn Not Detected (NotDetected) Ur Amphetamines Screen Not Detected (NotDetected) U Methamphetamines Scrn Not Detected (NotDetected) U Benzodiazepines Scrn Not Detected (NotDetected) Urine Cocaine Screen Not Detected (NotDetected) U Marijuana (THC) Screen Not Detected (NotDetected) 03/03/18 Range/Units 15:00 WBC (3.8-10.6) k/uL RBC (3.80-5.40) m/uL Hgb (11.4-16.0) gm/dL Hct (34.0-46.0) % MCV (80.0-100.0) fL MCH (25.0-35.0) pg MCHC (31.0-37.0) g/dL RDW (11.5-15.5) % Plt Count (150-450) k/uL Neutrophils % % Lymphocytes % % Monocytes % % Eosinophils % % Basophils % % Neutrophils # (1.3-7.7) k/uL Lymphocytes # (1.0-4.8) k/uL Monocytes # (0-1.0) k/uL Eosinophils # (0-0.7) k/uL Basophils # (0-0.2) k/uL PT (9.0-12.0) sec INR (<1.2) APTT (22.0-30.0) sec VBG pH 7.37 (7.31-7.41) VBG pCO2 50 (37-51) mmHg VBG HCO3 28 (24-28) mmol/L Sodium (137-145) mmol/L Potassium (3.5-5.1) mmol/L Chloride (98-107) mmol/L Carbon Dioxide (22-30) mmol/L Anion Gap mmol/L BUN (7-17) mg/dL Creatinine (0.52-1.04) mg/dL Est GFR (CKD-EPI)AfAm (>60 ml/min/1.73 sqM) Est GFR (CKD-EPI)NonAf (>60 ml/min/1.73 sqM) Glucose (74-99) mg/dL POC Glucose (mg/dL) (75-99) mg/dL POC Glu [place] Spinner ID Calcium (8.4-10.2) mg/dL Total Bilirubin (0.2-1.3) mg/dL AST (14-36) U/L ALT (9-52) U/L Alkaline Phosphatase (38-126) U/L Total Creatine Kinase (30-135) U/L CK-MB (CK-2) (0.0-2.4) ng/mL CK-MB (CK-2) Rel Index Troponin I (0.000-0.034) ng/mL Total Protein (6.3-8.2) g/dL Albumin (3.5-5.0) g/dL Urine Color Urine Appearance (Clear) Urine pH (5.0-8.0) Ur Specific [place] (1.001-1.035) Urine Protein (Negative) Urine Glucose (UA) (Negative) Urine Ketones (Negative) Urine Blood (Negative) Urine Nitrite (Negative) Urine Bilirubin (Negative) Urine Urobilinogen (<2.0) mg/dL Ur Leukocyte Esterase (Negative) Urine RBC (0-5) /hpf Urine WBC (0-5) /hpf Urine WBC Clumps (None) /hpf Urine Bacteria (None) /hpf Urine Opiates Screen (NotDetected) Ur Oxycodone Screen (NotDetected) Urine Methadone Screen (NotDetected) Ur Propoxyphene Screen (NotDetected) Ur Barbiturates Screen (NotDetected) U Tricyclic Antidepress (NotDetected) Ur Phencyclidine Scrn (NotDetected) Ur Amphetamines Screen (NotDetected) U Methamphetamines Scrn (NotDetected) U Benzodiazepines Scrn (NotDetected) Urine Cocaine Screen (NotDetected) U Marijuana (THC) Screen (NotDetected) Critical Care Time Critical Care Time: Yes Total Critical Care Time: 35 Disposition Clinical Impression: Altered mental status, Atrial fibrillation, Renal insufficiency, Uremic encephalopathy, UTI (urinary tract infection) Disposition: ADMITTED IP TO THIS HOSP Condition: Stable Is patient prescribed a controlled substance at d/c from ED?: No Referrals: Vishnu Malone MD [Primary Care Provider] - 1-2 days Decision to Admit Reason: Admit from EC Decision Date: 03/03/18 Decision Time: 18:03
[2018-03-03 15:10] LABS: Glucose,Whole Blood 179 mg/dL (75-99)
[2018-03-03 15:35] LABS: Basophils % (A) 0 %; Eosinophils # (A) 0.2 k/uL (0-0.7); Eosinophils % (A) 2 %; HCT 31.2 % (34.0-46.0); HGB 10.1 gm/dL (11.4-16.0); Lymphocytes # (A) 0.8 k/uL (1.0-4.8); Lymphocytes % (A) 7 %; MCH 31.1 pg (25.0-35.0); MCHC 32.5 g/dL (31.0-37.0); MCV 95.7 fL (80.0-100.0); Mean Platelet Volume 8.5; Monocytes # (A) 0.5 k/uL (0-1.0); Monocytes % (A) 4 %; Neutrophils # (A) 10.5 k/uL (1.3-7.7); Neutrophils % (A) 85 %; Platelet Count 176 k/uL (150-450); RBC 3.26 m/uL (3.80-5.40); RDW 15.3 % (11.5-15.5); WBC 12.3 k/uL (3.8-10.6)
[2018-03-03 15:37] LABS: VBG PH 7.37 (7.31-7.41)
[2018-03-03 15:44] LABS: Appearance,Urine Turbid (Clear); Bacteria,Urine Many /hpf; Bilirubin,Urine Negative (Negative); Blood,Urine Moderate (Negative); Color,Urine Dark Yellow; Glucose,Urine (UA) Negative (Negative); Ketones,Urine Trace (Negative); Leukocyte Esterase,Urine Large (Negative); Nitrite,Urine Negative (Negative); PH, Urine 5.5 (5.0-8.0); Protein,Urine 2+ (Negative); RBC,Urine 21 /hpf (0-5); WBC,Urine >182 /hpf (0-5)
[2018-03-03 15:49] LABS: Partial Thromboplastin Time 22.8 sec (22.0-30.0); Prothrombin Time 9.5 sec (9.0-12.0)
[2018-03-03 15:52] LABS: Albumin 3.2 g/dL (3.5-5.0); Calcium 8.8 mg/dL (8.4-10.2); Potassium 5.2 mmol/L (3.5-5.1); Total Protein 6.6 g/dL (6.3-8.2)
[2018-03-03 16:03] LABS: Troponin I 0.018 ng/mL (0.000-0.034)
[2018-03-03 16:13] LABS: Creatine Kinase MB 3.8 ng/mL (0.0-2.4)
[2018-03-03 16:15] LABS: Amphetamine Screen,Urine Not Detected (NotDetected); Benzodiazepines Screen,Urine Not Detected (NotDetected); Cocaine Screen,Urine Not Detected (NotDetected); Opiate Screen,Urine Not Detected (NotDetected); Phencyclidine Screen,Urine Not Detected (NotDetected); Urn Cannabinoid Scrn Not Detected (NotDetected)
[2018-03-03 16:16] LABS: Barbiturate Screen,Urine Not Detected (NotDetected); Methadone Screen, Urine Not Detected (NotDetected); Oxycodone Screen, Urine Not Detected (NotDetected); Tricyclic Antidepressant,Urine Detected (NotDetected)
[2018-03-03] MEDS ORDERED: LEVOFLOXACIN 500MG-D5W PMX 500 MG in DEXTROSE/WATER 1 100ML.BAG IVPB STA (16:16)
--- NOTE | 2018-03-03 16:22 | CT ---
EXAMINATION TYPE: CT brain wo con DATE OF EXAM: 03/03/2018 COMPARISON: 09/14/2015 HISTORY: 67-year-old female with confusion and altered mental status TECHNIQUE: Examination was done in axial plane without intravenous contrast. Coronal and sagittal r econstructions performed. CT DLP: 788.8 mGycm Automated exposure control for dose reduction was used. FINDINGS: There is no evidence of acute intracranial hemorrhage, acute ischemic changes, mass, mass-effect, or extra-axial fluid collection. There is no effacement of cerebral sulci or basal subarachnoid cister ns. There is no hydrocephalus. There is no midline shift. Albert-white matter distinction is preserv ed. Moderate patchy periventricular and deep white matter hypodensities similar to prior exam. Atherosclerotic calcifications within the carotid siphons and vertebrobasilar system. New complete to near complete opacification of the bilateral sphenoid sinuses. Orbits and globes appe ar intact. IMPRESSION: 1. No acute intracranial abnormality seen. Stable moderate patchy white matter hypodensities likely r elating to changes of chronic small vessel ischemic disease. 2. New severe sphenoid sinus disease.
--- NOTE | 2018-03-03 16:24 | XR ---
EXAMINATION TYPE: XR chest 2V DATE OF EXAM: 03/03/2018 COMPARISON: None HISTORY: 67-year-old female confusion, altered mental status TECHNIQUE: Frontal and lateral views FINDINGS: The heart is moderately enlarged. Diffuse interstitial prominence. Opacity is more confluent at the r ight upper lobe. No significant pleural effusion seen. IMPRESSION: 1. Moderate cardiomegaly and interstitial changes, possible CHF with pulmonary vascular congestion. 2. More confluent opacity at the right upper lobe could represent pneumonia or confluent pulmonary ed isela.
[2018-03-03] MEDS ORDERED: ONDANSETRON 4 MG/2 ML VIAL IVP STA (17:32)
[2018-03-03] MEDS ORDERED: LORazepam 2 MG/ML INJ IV STA (17:54)
[2018-03-03] MEDS ORDERED: NALOXONE 0.4 MG/ML 1 ML VIAL IV PRN (17:57)
[2018-03-03] MEDS: SODIUM CHLORIDE 0.9% 1,000 ML IV SCH (18:39)
[2018-03-03] MEDS ORDERED: ALBUTEROL NEBULIZED 2.5 MG/3 ML INHALATION PRN (19:28)
[2018-03-03] MEDS: CARVEDILOL 3.125 MG TAB PEG/G-TUBE SCH (20:05)
[2018-03-03 20:57] LABS: Glucose,Whole Blood 187 mg/dL (75-99)
[2018-03-03] MEDS: HEPARIN SODIUM,PORCINE 5,000 UNIT/ML 1 ML VIAL SQ SCH (20:59)
[2018-03-03] MEDS: INSULIN ASPART 100 UNIT/ML 1 ML 10 ML VIAL SQ SCH (21:25)
[2018-03-03] MEDS ORDERED: ONDANSETRON ODT 4 MG TAB PO PRN (22:56)
--- NOTE | 2018-03-03 23:54 | HP ---
HISTORY AND PHYSICAL I am covering for Dr. Malone. CHIEF COMPLAINT: Change in mental status. HISTORY OF PRESENT ILLNESS: This 67-year-old woman with a past medical history of multiple medical problems, including atrial fibrillation, asthma, CVA, TIA, hypertension, diabetes mellitus, hyperlipidemia, skin disorder, hypercholesterolemia, anxiety, being followed by Dr. Malone in the outpatient setting is apparently living at home and her boyfriend was taking care of her. The patient was noted to have a change in mental status. Patient had progressive weakness and confusion with fever up to 101. The patient taken to [facility] and admitted for further evaluation and treatment. Currently the patient is stuporous, unable to give any coherent history. Most of the history is taken in my discussion with the staff, discussion with the ER physician and review of the chart. White count is elevated at 12.3. BUN is 111 and creatinine is 4, indicating acute renal failure. CK-MB was 3.8. Troponins are negative. UA shows significant evidence of UTI. Patient admitted for further evaluation and treatment. Broad-spectrum IV antibiotics initiated. There is no history of trauma. PAST MEDICAL HISTORY: History of asthma, atrial fibrillation, CVA, TIA, diabetes mellitus type 2, hearing difficulty, hypertension, hyperlipidemia, hypercholesteremia, brainstem stroke. MEDICATIONS PRIOR TO ADMISSION: Home medications: 1. Ultram 50 mg per PEG every 6 hours p.r.n. 2. Klonopin 0.5 mg per PEG t.i.d. 3. Zocor 40 mg per PEG q.h.s. 4. Seroquel 100 mg q.h.s. 5. Ditropan 10 mg p.o. t.i.d. 6. Zofran 4 mg q.8h p.r.n. 7. Prilosec 20 mg per PEG daily. 8. Cozaar 25 mg per PEG daily. 9. Levemir 30 units subcu daily. 10.Insulin 10 units a.c. t.i.d. 11.Lasix 40 mg per PEG b.i.d. 12.Advair 500/50, 1 puff b.i.d. 13.Iron sulfate 325 mg per PEG daily. 14.Vitamin D3 400 units daily. 15.Coreg 3.125 mg p.o. b.i.d. 16.Vitamin C 500 mg p.o. daily. 17.Zyloprim 100 mg daily. 18.Ventolin 2.5 every 6 hours p.r.n. 19.Ventolin HFA 2 puffs q.4h p.r.n. ALLERGIES: ASPIRIN, CEFEPIME. FAMILY HISTORY SOCIAL HISTORY REVIEW OF SYSTEMS: Could not be taken because of the patient's change in mental status. No history of smoking per chart. PHYSICAL EXAM: Patient is stuporous. Pulse is 92, blood pressure 89/50, respirations 20, temperature 97 degrees, pulse ox 100% on 4L. HEENT: Conjunctivae normal. Oral mucosa dry. NECK: No jugular venous distention. No thyroid enlargement. No carotid bruits. No lymph node enlargement. CARDIOVASCULAR: S1, S2 muffled. RESPIRATORY: Breath sounds diminished in the bases. A few scattered rhonchi and crackles. ABDOMEN: Soft. PEG tube in situ. LEGS: No edema. No swelling. NERVOUS SYSTEM: Higher functions as mentioned earlier. Moves minimally all the 4 limbs. A full neurologic exam could not be performed otherwise. SKIN: No ulcer, rash or bleeding. LYMPHATIC: No lymphadenopathy in neck or axillae. JOINTS: No active deforming arthropathy. LABS: WBC 12.2, hemoglobin 10.1. Sodium 130, potassium 5.2. UA noted. ASSESSMENT: 1. Acute urinary tract infection with sepsis. 2. Change in mental status, metabolic encephalopathy; acute, secondary to sepsis. 3. Acute renal failure, possibly prerenal with acute tubular necrosis. 4. Hyponatremia. 5. History of brainstem stroke. 6. Increased WBC. 7. Status post percutaneous endoscopic gastrostomy tube feeds. 8. History of atrial fibrillation. 9. Asthma. 10.Cerebrovascular accident, transient ischemic attack. 11.Diabetes mellitus type 2. 12.Hypertension. 13.Hyperlipidemia. 14.History of hypercholesteremia. RECOMMENDATIONS AND DISCUSSION: In this 67-year-old woman who presented with multiple complex medical issues, will monitor the patient closely. Continue the current medical management and continue symptomatic treatment. Will initiate broad-spectrum IV antibiotics. Will obtain the cultures and I would also recommend DVT prophylaxis. We will avoid nephrotoxic medications. Cautious IV fluids. Nephrology evaluation. We will also hold any antipsychotic medications as well. The prognosis is extremely guarded because of multiple complex medical issues and further recommendations to follow. Repeat labs have been requested. See orders for further details. MMODL / IJN: [id number] /
[2018-03-04] MEDS: CARVEDILOL 3.125 MG TAB PEG/G-TUBE SCH ×2 (06:28→20:05)
[2018-03-04] MEDS: INSULIN ASPART 100 UNIT/ML 1 ML 10 ML VIAL SQ SCH ×4 (06:34→21:24)
[2018-03-04 06:36] LABS: Glucose,Whole Blood 131 mg/dL (75-99)
[2018-03-04 07:05] LABS: Basophils % (A) 0 %; Eosinophils # (A) 0.1 k/uL (0-0.7); Eosinophils % (A) 1 %; HCT 30.3 % (34.0-46.0); HGB 9.9 gm/dL (11.4-16.0); Lymphocytes # (A) 0.7 k/uL (1.0-4.8); Lymphocytes % (A) 4 %; MCH 31.4 pg (25.0-35.0); MCHC 32.7 g/dL (31.0-37.0); MCV 95.8 fL (80.0-100.0); Mean Platelet Volume 7.9; Monocytes # (A) 0.4 k/uL (0-1.0); Monocytes % (A) 3 %; Neutrophils # (A) 14.6 k/uL (1.3-7.7); Neutrophils % (A) 91 %; Platelet Count 203 k/uL (150-450); RBC 3.17 m/uL (3.80-5.40); RDW 15.3 % (11.5-15.5)
[2018-03-04 07:22] LABS: Albumin 3.2 g/dL (3.5-5.0); Calcium 8.6 mg/dL (8.4-10.2); Magnesium 2.8 mg/dL (1.6-2.3); Phosphorus 6.8 mg/dL (2.5-4.5); Potassium 5.6 mmol/L (3.5-5.1); Total Bilirubin 0.8 mg/dL (0.2-1.3); Total Protein 6.5 g/dL (6.3-8.2)
[2018-03-04] MEDS ORDERED: SYMBICORT 160-4.5 MCG INHALER INHALATION SCH (08:00)
[2018-03-04] MEDS ORDERED: FUROSEMIDE 40 MG TAB PEG/G-TUBE SCH (09:00)
[2018-03-04] MEDS ORDERED: INSULIN REGULAR 100 UNIT/ML VIAL IV ONE (09:30)
[2018-03-04] MEDS ORDERED: DEXTROSE 50%-WATER 50 ML SYRINGE IVP STA (09:31)
[2018-03-04] MEDS: ASCORBIC ACID 500 MG TAB PEG/G-TUBE SCH (09:57)
[2018-03-04] MEDS: CHOLECALCIFEROL 400 UNIT TAB PEG/G-TUBE SCH (09:57)
[2018-03-04] MEDS: HEPARIN SODIUM,PORCINE 5,000 UNIT/ML 1 ML VIAL SQ SCH ×2 (09:57→21:24)
[2018-03-04] MEDS: PANTOPRAZOLE 40 MG TABLET PO SCH (09:58)
[2018-03-04] MEDS: OXYBUTYNIN CHLORIDE 5 MG TAB PEG/G-TUBE SCH ×2 (09:58→19:47)
--- NOTE | 2018-03-04 09:58 | P.NPCON ---
History of Present Illness - Reason for Consult acute renal failure - History of Present Illness Reason for consultation: Acute kidney injury History of present illness: Patient is a 67-year-old female seen in renal consultation for acute kidney injury. Patient presented to the hospital with altered mental status. She was also noted to be weaker than usual and had a temperature of 101F. There was concern for UTI. Her blood pressure was also low in the systolic 80s on admission and is up to 109/71 this morning. Patient is not a very reliable historian. She is currently resting in bed. She has a PEG tube in place. Diuretics and antihypertensives including Cozaar are currently held. She is receiving normal saline at 75 mL an hour. She has a Payton catheter in place. I don't see any NSAIDs and her home medications. She does have history of diabetes mellitus. Potassium level this morning was 5.6. Sodium level is improved to 134 this morning. She is receiving empiric antibiotics. Vital signs are stable. General: The patient appeared well nourished and normally developed. HEENT: Head exam is unremarkable. Neck is without jugular venous distension. LUNGS: Lungs are clear to auscultation and percussion. Breath sounds decreased. HEART: Rate and Rhythm are regular. First and second heart sounds normal. No murmurs, rubs or gallops. ABDOMEN: Abdominal exam reveals normal bowel sounds. Non-tender and non- distended. No evidence of peritonitis. EXTREMITITES: No clubbing, cyanosis, or edema. Past Medical History Past Medical History: Atrial Fibrillation, Asthma, CVA/TIA, Diabetes Mellitus, Hearing Disorder / Deafness, Hyperlipidemia, Hypertension, Renal Disease, Skin Disorder Additional Past Medical History / Comment(s): hypercholesterol, basestem stroke 2016, difficulty swallowing, pt has peg tube History of Any Multi-Drug Resistant Organisms: None Reported Past Surgical History: No Surgical Hx Reported Additional Past Surgical History / Comment(s): PEG tube, skin graft on left thigh 2016 at [facility] Past Anesthesia/Blood Transfusion Reactions: No Reported Reaction Past Psychological History: Anxiety Smoking Status: Never smoker Past Alcohol Use History: None Reported Additional Past Alcohol Use History / Comment(s): Patient lives at home with her boyfriend/caregiver and daughter Past Drug Use History: None Reported - Past Family History Mother Family Medical History: No Reported History Medications and Allergies Home Medications Medication Instructions Recorded Confirmed Type Oxybutynin Chloride [Ditropan] 10 mg PEG/G-TUBE TID 03/23/14 03/03/18 History clonazePAM [KlonoPIN] 0.5 mg PEG/G-TUBE TID 03/23/14 03/03/18 History Ascorbic Acid [Vitamin C] 500 mg PEG/G-TUBE DAILY 09/06/14 03/03/18 History Insulin Detemir [Levemir] 30 unit SQ DAILY 08/19/15 03/03/18 History Ferrous Sulfate [Feosol] 325 mg PEG/G-TUBE DAILY 10/31/15 03/03/18 History Insulin Aspart [NovoLOG 10 unit SQ AC-TID 10/31/15 03/03/18 History (formulary)] Omeprazole [PriLOSEC] 20 mg PEG/G-TUBE DAILY 10/31/15 03/03/18 History QUEtiapine [SEROquel] 100 mg PEG/G-TUBE HS 02/21/17 03/03/18 History traMADol HCL [Ultram] 50 mg PEG/G-TUBE Q6HR PRN 02/21/17 03/03/18 History Allopurinol [Zyloprim] 100 mg PEG/G-TUBE DAILY 05/21/17 03/03/18 History Carvedilol [Coreg] 3.125 mg PEG/G-TUBE BID 05/21/17 03/03/18 History Furosemide [Lasix] 40 mg PEG/G-TUBE BID 05/21/17 03/03/18 History Losartan Potassium [Cozaar] 25 mg PEG/G-TUBE DAILY 05/21/17 03/03/18 History Simvastatin [Zocor] 40 mg PEG/G-TUBE HS 05/21/17 03/03/18 History Albuterol Nebulized [Ventolin 2.5 mg INHALATION RT-Q6H PRN 05/26/17 03/03/18 History Nebulized] Cholecalciferol [Vitamin D3] 400 unit PEG/G-TUBE DAILY 05/26/17 03/03/18 History Fluticasone/Salmeterol [Advair 1 puff INHALATION RT-BID 05/26/17 03/03/18 History 500-50 Diskus] Albuterol Inhaler [Ventolin Hfa 2 puff INHALATION RT-Q4H PRN 03/03/18 03/03/18 History Inhaler] Ondansetron [Zofran ODT] 4 mg PO Q8HR PRN 03/03/18 03/03/18 History Allergies Allergy/AdvReac Type Severity Reaction Status Date / Time aspirin AdvReac Kidney Verified 03/03/18 15:22 issues cefepime AdvReac Hallucinati Verified 03/03/18 15:22 ons Physical Exam Vitals: Vital Signs Temp Pulse Pulse Resp BP BP BP 03/04/18 08:45 100.1 F H 107 H 20 109/71 03/04/18 03:46 102 H 18 03/04/18 03:44 97.1 F L 102 H 18 86/44 03/04/18 00:00 97.2 F L 95 18 80/42 03/03/18 22:05 03/03/18 20:00 97.0 F L 92 20 89/50 03/03/18 18:56 92 18 113/78 03/03/18 18:37 97.0 F L 92 20 89/50 03/03/18 17:56 89 20 134/80 03/03/18 16:45 98.8 F 89 20 106/53 03/03/18 15:50 87 20 106/56 03/03/18 15:12 87 22 102/55 03/03/18 14:45 98.8 F 91 20 113/59 Pulse Ox 03/04/18 08:45 98 03/04/18 03:46 03/04/18 03:44 95 03/04/18 00:00 98 03/03/18 22:05 98 03/03/18 20:00 100 03/03/18 18:56 98 03/03/18 18:37 100 03/03/18 17:56 98 03/03/18 16:45 96 03/03/18 15:50 97 03/03/18 15:12 98 03/03/18 14:45 95 Intake and Output 03/03/18 03/04/18 03/04/18 22:59 06:59 14:59 Intake Total 600 Output Total 300 Balance 600 -300 Intake: Intake, IV Titration 600 Amount Sodium Chloride 0.9% 1, 600 000 ml @ 75 mls/hr IV . [id number] [facility] Rx#:[id number] Output: Urine 300 Other: Voiding Method Indwelling Catheter Indwelling Catheter Weight 103 kg 94 kg Results - Lab Results Most recent lab results Calcium 8.6 mg/dL (8.4-10.2) 03/04/18 06:32 Phosphorus 6.8 mg/dL (2.5-4.5) H 03/04/18 06:32 Magnesium 2.8 mg/dL (1.6-2.3) H 03/04/18 06:32 03/04/18 06:32 03/04/18 06:32 Assessment and Plan Plan: Assessment: 1. Nonoliguric acute kidney injury mostly prerenal secondary to intravascular volume depletion from diuretics as well as hypotension. Creatinine 4 on admission and down to 3.7 today. Baseline creatinine is near 1. 2. UTI with sepsis maintained on IV antibiotics. 3. Hypovolemic hyponatremia improved with IV hydration. 4. Hyperkalemia secondary to acute kidney injury. 5. Hyperphosphatemia secondary to acute kidney injury. 6. History of CVA. Plan: Continue normal saline at 75 mL an hour. Hold diuretics and antihypertensives. 10 units of IV insulin with 1 amp D50 now. Repeat potassium level this evening. Follow-up cultures. Repeat electrolytes in the morning. Strict I's and O's. She has a Payton catheter in place. No urgent need for renal placement therapy at this time. Thank you for the consultation. I will continue to follow patient with you during her hospital stay.
[2018-03-04] MEDS: ALBUTEROL NEBULIZED 2.5 MG/3 ML INHALATION PRN ×2 (11:57→16:43)
[2018-03-04 12:20] LABS: Glucose,Whole Blood 151 mg/dL (75-99)
[2018-03-04] MEDS: SODIUM CHLORIDE 0.9% 1,000 ML IV SCH ×2 (12:25→21:18)
[2018-03-04] MEDS ORDERED: LEVOFLOXACIN 500MG-D5W PMX 500 MG in DEXTROSE/WATER 1 100ML.BAG IVPB SCH (17:00)
--- NOTE | 2018-03-04 18:31 | PN ---
PROGRESS NOTE DATE OF SERVICE: 03/04/2018. I am covering for Dr. Malone. This 67-year-old woman was admitted with change in mental status, had a possible acute urinary tract infection with sepsis. Patient also had metabolic encephalopathy and renal failure also. The patient is dehydrated at this time. The patient also had PEG tube placement and the area around the PEG tube is slightly erythematous at this time. Creatinine is improved to 3.7 with IV fluids. The cultures are pending at this time. PAST MEDICAL HISTORY: Reviewed. REVIEW OF SYSTEMS: Could not be taken. The patient is confused. CURRENT MEDICATIONS: Reviewed. 1. Ventolin 2.5 q.4h p.r.n. 2. Vitamin C 500 mg per PEG daily. 3. Lipitor. 4. Symbicort b.i.d. 5. Coreg 3.1 kg b.i.d. 6. Vitamin D3 400 daily. 7. Heparin 5000 subcu b.i.d. 8. NovoLog scale. 9. Narcan. 10.Zofran. 11.Ditropan 10 mg. 12.Protonix 40 mg. PHYSICAL EXAM: Patient is conscious but confused. Pulse 93, blood pressure 109/67, respiration 20, temperature 98.1, pulse ox 98% on 4 L. HEENT: Conjunctivae normal. Oral mucosa moist. Neck is no jugular venous distention. No carotid bruit. No lymph node enlargement. CARDIOVASCULAR: S1, S2. No S3, no S4. RESPIRATORY: Breath sounds diminished in the bases. A few scattered rhonchi. No crackles. ABDOMEN: Soft. PEG tube in situ. The area around the PEG tube is minimally erythematous and as well as some minimal sores and minimal yellowish discoloration also present. Bowel sounds present. LEGS: No edema, no swelling. NERVOUS SYSTEM: Higher functions as mentioned. Moves all four limbs. Mild diffuse weakness. LYMPHATICS: No lymphadenopathy in the neck, axillae, groin. SKIN: No ulcer, rash, bleeding. LABS: WBC 6, hemoglobin 9.9, sodium 132, potassium 5.6 and creatinine 3.7, BUN is 106. ASSESSMENT: 1. Acute urinary tract infection with sepsis present on admission. 2. Change in mental status acute metabolic encephalopathy secondary to sepsis. 3. Acute renal failure possibly prerenal with acute tubular necrosis. 4. Hyponatremia. 5. History of brainstem stroke. 6. Status post PEG tube placement. 7. Possible cellulitis around the PEG tube site. 8. Increased WBC. 9. History of atrial fibrillation. 10.History of asthma. 11.History of cerebrovascular accident, transient ischemic attack. 12.Diabetes mellitus type 2. 13.Hypertension. 14.Hyperlipidemia. 15.Hypophosphatemia. RECOMMENDATIONS AND DISCUSSION: I recommend to continue current management and symptomatic treatment. Otherwise at this time. The blood culture preliminary shows some gram-positive cocci. I would recommend to continue the Levaquin and consult Infectious Disease. We will hold off the vancomycin for now because of the concerns of kidney failure. Otherwise, continue with cautious hydration. Monitor fluid and electrolyte balance closely. Head of the bed elevated to 45 degrees. Closely follow with multiple consultants and further recommendations to follow. See orders for details. Prognosis guarded. MMJEREMYL / IJN: [id number] /
[2018-03-04 19:04] LABS: Glucose,Whole Blood 129 mg/dL (75-99)
--- NOTE | 2018-03-04 19:43 | CONS ---
CONSULTATION DATE OF SERVICE: 03/04/2018. REASON FOR CONSULTATION: Urinary tract infection. HISTORY OF PRESENT ILLNESS: The patient is a 67-year-old female who was brought into the ER at [facility] by the EMS for mental status changes. Apparently the patient has been progressively getting weak and more confused. was to the hospital. The patient did have a fever of 101 degrees Fahrenheit. At the present time, the patient was evaluated by the EMS. Apparently the patient was with oral antibiotics for her urinary tract infection. However, the family was unable to tell us exactly which antibiotic the patient was on. Subsequently the patient has been brought into the ER for further evaluation of the same. She did have a Payton catheter placed in currently draining clear urine. The patient also denies having any chest pain, no shortness or cough. No abdominal pain. She did have a PEG tube for feeding with some erythema noted on the PEG tube by the nursing staff, but no diarrhea. Overall history remains to be limited. The patient not a very good historian and most of the information has been obtained from review of the chart and talking to the nursing staff. REVIEW OF SYSTEMS: Could not be reliably obtained. The positive points have been mentioned in HPI. PAST MEDICAL HISTORY: Significant for atrial fibrillation, asthma, CVA, TIA, diabetes mellitus, hypertension, hyperlipidemia, chronic renal insufficiency, stroke. PAST SURGICAL HISTORY: Skin graft on the left thigh, she did have a PEG tube placement. SOCIAL HISTORY: No history of smoking, drinking or drug use. FAMILY HISTORY: No pertinent findings noticed. ALLERGIES: TO CEFEPIME. MEDICATION: Currently include the patient is on Ventolin, vitamin C, Lipitor Symbicort, Coreg, vitamin D3, NovoLog, Levaquin, Narcan, Zofran, Ditropan, and Protonix. EXAMINATION: Blood pressure is 109/67 with a pulse of 93, temperature is 99.7, she is 98% on 4 L nasal cannula. General description is an elderly female lying in bed in no distress. No tachypnea or accessory muscles of respiration use. HEENT: Shows pallor. No scleral icterus. Oral mucosa membranes are dry. No pharyngeal erythema or thrush. Neck: Trachea central. No thyromegaly. Lungs: Unlabored breathing. Clear to auscultation anteriorly. No wheeze or crackles. Heart S1, S2. Regular rate and rhythm. Abdomen soft. No tenderness. No guarding or rigidity. Minimal erythema around the PEG tube site. EXTREMITIES: No edema of the feet. Skin examination: No rash or mass palpable. NEUROLOGIC: The patient is awake, alert, oriented x3. Mood and affect normal. LABS: Hemoglobin is 9.8, white count up to 16,000 today with a BUN of 106, creatinine 3.70. Urine has been positive. DIAGNOSTIC IMPRESSION AND PLAN: 1. The patient admitted to the hospital with sepsis in a patient who did have a fever of 101 degrees Fahrenheit. The patient did have elevated white count, source likely urinary tract infection, likely from enteric gram-negative pathogen failing outpatient oral antibiotic therapy, not very clear which antibiotic the patient was on. Seemed to be failing the current Levaquin the patient is already on in view of the jump in the white count compared to yesterday. 2. Patient noted to have CEFEPIME ALLERGY that will limit the number of antibiotics that could be safely used. 3. Patient with renal insufficiency. We will use of some of the antibiotics. 4. Patient with minimal erythema at the PEG tube site, but no active cellulitis or abscess. PLAN: 1. We will discontinue the Levaquin. 2. Start the patient on Azactam 1 g q.12 hours. 3. Nystatin powder around the PEG tube site twice a day. 4. We will follow up on the clinical condition and culture to further adjust medication if needed. Thank you for this consultation. We will follow the patient along with you. MMODL / IJN: [id number] /
[2018-03-04 20:20] LABS: Glucose,Whole Blood 137 mg/dL (75-99)
[2018-03-04] MEDS: LORazepam 2 MG/ML INJ IV PRN (20:31)
[2018-03-04] MEDS: ATORVASTATIN 20 MG TAB PEG/G-TUBE SCH (21:24)
[2018-03-04] MEDS: SYMBICORT 160-4.5 MCG INHALER INHALATION SCH (22:14)
[2018-03-05] MEDS: OXYBUTYNIN CHLORIDE 5 MG TAB PEG/G-TUBE SCH ×4 (00:42→21:01)
[2018-03-05] MEDS: LORazepam 2 MG/ML INJ IV PRN ×5 (00:43→19:59)
[2018-03-05 06:55] LABS: Glucose,Whole Blood 131 mg/dL (75-99)
[2018-03-05] MEDS: SYMBICORT 160-4.5 MCG INHALER INHALATION SCH ×3 (07:17→19:36)
[2018-03-05] MEDS: ALBUTEROL NEBULIZED 2.5 MG/3 ML INHALATION PRN ×2 (07:17→11:05)
[2018-03-05] MEDS: INSULIN ASPART 100 UNIT/ML 1 ML 10 ML VIAL SQ SCH ×4 (07:40→21:01)
[2018-03-05] MEDS: HEPARIN SODIUM,PORCINE 5,000 UNIT/ML 1 ML VIAL SQ SCH ×2 (07:46→21:01)
[2018-03-05] MEDS: CHOLECALCIFEROL 400 UNIT TAB PEG/G-TUBE SCH (07:46)
[2018-03-05] MEDS: ASCORBIC ACID 500 MG TAB PEG/G-TUBE SCH (07:46)
[2018-03-05] MEDS: PANTOPRAZOLE 40 MG TABLET PO SCH (07:46)
[2018-03-05] MEDS: CARVEDILOL 3.125 MG TAB PEG/G-TUBE SCH ×2 (07:46→16:39)
[2018-03-05 09:21] LABS: Anisocytosis Slight; Basophils % (A) 0 %; Eosinophils # (A) 0.1 k/uL (0-0.7); Eosinophils % (A) 1 %; HCT 30.4 % (34.0-46.0); HGB 9.6 gm/dL (11.4-16.0); Hypochromasia Slight; Lymphocytes # (A) 0.8 k/uL (1.0-4.8); Lymphocytes % (A) 9 %; MCH 31.5 pg (25.0-35.0); MCHC 31.5 g/dL (31.0-37.0); MCV 99.9 fL (80.0-100.0); Macrocytosis Slight; Mean Platelet Volume 7.7; Monocytes # (A) 0.4 k/uL (0-1.0); Monocytes % (A) 4 %; Neutrophils # (A) 7.6 k/uL (1.3-7.7); Neutrophils % (A) 83 %; Platelet Count 206 k/uL (150-450); RBC 3.04 m/uL (3.80-5.40); RDW 16.1 % (11.5-15.5); WBC 9.2 k/uL (3.8-10.6)
[2018-03-05 09:44] LABS: Calcium 8.9 mg/dL (8.4-10.2); Magnesium 2.7 mg/dL (1.6-2.3); Potassium 4.9 mmol/L (3.5-5.1)
[2018-03-05 11:19] LABS: Glucose,Whole Blood 203 mg/dL (75-99)
--- NOTE | 2018-03-05 12:02 | P.CRDCN ---
History of Present Illness History of present illness: This is a pleasant 67-year-old female past medical history significant for chronic persistent atrial fibrillation, dyslipidemia, hypertension, chronic kidney disease, CVA, asthma, PEG tube and diabetes mellitus. She follows with Dr. Wayne in the office. We've been asked to see her in consultation for possibility of heart failure. She presented to the hospital with symptoms of altered mental status. She was febrile and was being treated for an outpatient urinary tract infection and has been diagnosed with sepsis secondary to urinary tract infection since admission. At the time of exam she is seen resting comfortably in bed in no acute distress with ongoing altered mental status. She is screaming out, not answering questions and is a poor historian. All information is obtained from the medical record. She is also being seen in consultation by nephrologyChest x-ray on admission reveals moderate cardiomegaly and interstitial changes, possible CHF with pulmonary vascular congestion, opacity in the right upper lobe contact representative of pneumonia. She is currently receiving IV antibiotics. Laboratory data reviewed , hemoglobin 9.6, platelets 206, potassium last night 5.3, sodium 134, creatinine 3.7, magnesium 2.8. Baseline renal function is normal for the previous 2 years. Although she did have a history of mild renal insufficiency noted in 2014. Nephrology has recommended gentle hydration, holding diuretics and antihypertensives as well as measures to reduce potassium. EKG on arrival reveals atrial fibrillation with controlled ventricular response a bundle branch block pattern. Home medications included simvastatin 40 mg daily, losartan 25 mg daily, Lasix 40 mg daily, carvedilol 3.125 mg twice a day. She also is on Ultram, Klonopin, Seroquel, Ditropan, Zofran, Prilosec, Levemir, NovoLog, Advair, allopurinol and Ventolin. Review of Systems ROS unobtainable: due to mental status Past Medical History Past Medical History: Atrial Fibrillation, Asthma, CVA/TIA, Diabetes Mellitus, Hearing Disorder / Deafness, Hyperlipidemia, Hypertension, Renal Disease, Skin Disorder Additional Past Medical History / Comment(s): hypercholesterol, basestem stroke 2016, difficulty swallowing, pt has peg tube History of Any Multi-Drug Resistant Organisms: None Reported Past Surgical History: No Surgical Hx Reported Additional Past Surgical History / Comment(s): PEG tube, skin graft on left thigh 2016 at [facility] Past Anesthesia/Blood Transfusion Reactions: No Reported Reaction Past Psychological History: Anxiety Smoking Status: Never smoker Past Alcohol Use History: None Reported Additional Past Alcohol Use History / Comment(s): Patient lives at home with her boyfriend/caregiver and daughter Past Drug Use History: None Reported - Past Family History Mother Family Medical History: No Reported History Medications and Allergies Home Medications Medication Instructions Recorded Confirmed Type Oxybutynin Chloride [Ditropan] 10 mg PEG/G-TUBE TID 03/23/14 03/03/18 History clonazePAM [KlonoPIN] 0.5 mg PEG/G-TUBE TID 03/23/14 03/03/18 History Ascorbic Acid [Vitamin C] 500 mg PEG/G-TUBE DAILY 09/06/14 03/03/18 History Insulin Detemir [Levemir] 30 unit SQ DAILY 08/19/15 03/03/18 History Ferrous Sulfate [Feosol] 325 mg PEG/G-TUBE DAILY 10/31/15 03/03/18 History Insulin Aspart [NovoLOG 10 unit SQ AC-TID 10/31/15 03/03/18 History (formulary)] Omeprazole [PriLOSEC] 20 mg PEG/G-TUBE DAILY 10/31/15 03/03/18 History QUEtiapine [SEROquel] 100 mg PEG/G-TUBE HS 02/21/17 03/03/18 History traMADol HCL [Ultram] 50 mg PEG/G-TUBE Q6HR PRN 02/21/17 03/03/18 History Allopurinol [Zyloprim] 100 mg PEG/G-TUBE DAILY 05/21/17 03/03/18 History Carvedilol [Coreg] 3.125 mg PEG/G-TUBE BID 05/21/17 03/03/18 History Furosemide [Lasix] 40 mg PEG/G-TUBE BID 05/21/17 03/03/18 History Losartan Potassium [Cozaar] 25 mg PEG/G-TUBE DAILY 05/21/17 03/03/18 History Simvastatin [Zocor] 40 mg PEG/G-TUBE HS 05/21/17 03/03/18 History Albuterol Nebulized [Ventolin 2.5 mg INHALATION RT-Q6H PRN 05/26/17 03/03/18 History Nebulized] Cholecalciferol [Vitamin D3] 400 unit PEG/G-TUBE DAILY 05/26/17 03/03/18 History Fluticasone/Salmeterol [Advair 1 puff INHALATION RT-BID 05/26/17 03/03/18 History 500-50 Diskus] Albuterol Inhaler [Ventolin Hfa 2 puff INHALATION RT-Q4H PRN 03/03/18 03/03/18 History Inhaler] Ondansetron [Zofran ODT] 4 mg PO Q8HR PRN 03/03/18 03/03/18 History Allergies Allergy/AdvReac Type Severity Reaction Status Date / Time aspirin AdvReac Kidney Verified 03/03/18 15:22 issues cefepime AdvReac Hallucinati Verified 03/03/18 15:22 ons Physical Exam Vitals: Vital Signs Temp Pulse Pulse Resp BP Pulse Ox 03/05/18 07:30 96 03/05/18 07:19 90 98 03/05/18 05:00 98.2 F 86 16 126/65 99 03/05/18 04:00 94 18 03/05/18 00:00 94 18 03/04/18 20:00 98.8 F 94 18 119/65 97 03/04/18 16:55 110 H 20 03/04/18 16:43 111 H 20 03/04/18 14:47 98.7 F 93 20 109/67 98 03/04/18 12:17 110 H 03/04/18 11:58 106 H 03/04/18 11:51 98.9 F 106 H 16 114/70 95 Intake and Output 03/04/18 03/05/18 03/05/18 22:59 06:59 14:59 Intake Total 250 720 Output Total 1200 1300 Balance -950 -580 Intake: Intake, IV Titration 100 720 Amount Levofloxacin 500Mg-D5w 100 Pmx 500 mg In Dextrose/ Water 1 100ml.bag @ 100 mls/hr IVPB Q24H [facility] Rx#: [id number] Sodium Chloride 0.9% 1, 720 000 ml @ 75 mls/hr IV . [id number] [facility] Rx#:[id number] Other 150 Output: Urine 1200 1300 Uretheral (Payton) 1200 1300 Other: Voiding Method Indwelling Catheter Indwelling Catheter Blood pressure 126/65 heart rate 86 afebrile maintaining oxygen saturation on nasal cannula GENERAL: This is a 67-year-old female in no apparent distress at the time of my examination. HEENT: Head is atraumatic, normocephalic. Pupils are equal, round. Sclerae anicteric. Conjunctivae are clear. Mucous membranes of the mouth are moist. Neck is supple. There is no jugular venous distention. No carotid bruit is heard. LUNGS: Course rhonchi noted throughout with expiratory wheeze. No chest wall tenderness is noted on palpation or with deep breathing. HEART: Irregular rate and rhythm with systolic murmur,no rubs or gallops. S1 and S2 heard. ABDOMEN: Soft, nontender. Bowel sounds are heard. No organomegaly noted. EXTREMITIES: No evidence of peripheral edema and no calf tenderness noted. VASCULAR: Radial and dorsalis pedis pulses palpated, no evidence of clubbing. NEUROLOGIC: Patient is awake, yelling out and not answering questions appropriately. Results 03/05/18 08:10 03/05/18 08:10 CBC 03/05/18 Range/Units 08:10 WBC 9.2 (3.8-10.6) k/uL RBC 3.04 L (3.80-5.40) m/uL Hgb 9.6 L (11.4-16.0) gm/dL Hct 30.4 L (34.0-46.0) % Plt Count 206 (150-450) k/uL Comprehensive Metabolic Panel 03/04/18 Range/Units 17:11 Potassium 5.3 H (3.5-5.1) mmol/L Current Medications Generic Name Dose Route Start Last Admin Trade Name Freq PRN Reason Stop Dose Admin Albuterol Sulfate 2.5 mg 03/03/18 19:28 03/05/18 07:17 Ventolin Nebulized INHALATION 2.5 mg RT-Q4H PRN Administration Shortness Of Breath Ascorbic Acid 500 mg 03/04/18 09:00 03/05/18 07:46 Vitamin C PEG/G-TUBE 500 mg DAILY [facility] Administration Atorvastatin Calcium 20 mg 03/04/18 21:00 03/04/18 21:24 Lipitor PEG/G-TUBE 20 mg HS [facility] Administration Budesonide/Formoterol Fumarate 2 puff 03/04/18 22:00 03/05/18 07:32 Symbicort 160-4.5 Mcg Inhaler INHALATION Not Given RT-BID [facility] Carvedilol 3.125 mg 03/03/18 19:30 03/05/18 07:46 Coreg PEG/G-TUBE 3.125 mg AC-BID [facility] Administration Cholecalciferol 400 unit 03/04/18 09:00 03/05/18 07:46 Vitamin D3 PEG/G-TUBE 400 unit DAILY [facility] Administration Heparin Sodium (Porcine) 5,000 unit 03/03/18 21:00 03/05/18 07:46 Heparin SQ 5,000 unit Q12HR [facility] Administration Sodium Chloride 1,000 mls @ 75 mls/hr 03/03/18 18:00 03/04/18 21:18 Saline 0.9% IV Not Given .[id number] [facility] Levofloxacin 500 mg/ IV 100 mls @ 100 mls/hr 03/04/18 17:00 03/04/18 19:46 Solution IVPB 100 mls/hr Q24H [facility] Administration Insulin Aspart 0 unit 03/03/18 21:00 03/05/18 07:40 Novolog SQ Not Given ACHS [facility] Protocol Lorazepam 0.25 mg 03/04/18 20:13 03/05/18 07:47 Ativan IV 0.25 mg Q4HR PRN Administration Anxiety Naloxone HCl 0.2 mg 03/03/18 17:57 Narcan IV Q2M PRN Opioid Reversal Ondansetron HCl 4 mg 03/03/18 22:56 Zofran Odt PO Q8HR PRN Nausea Oxybutynin Chloride 10 mg 03/04/18 09:00 03/05/18 07:46 Ditropan PEG/G-TUBE 10 mg TID [facility] Administration Pantoprazole Sodium 40 mg 03/04/18 09:00 03/05/18 07:46 Protonix PO 40 mg DAILY [facility] Administration Intake and Output 03/04/18 03/05/18 03/05/18 22:59 06:59 14:59 Intake Total 250 720 Output Total 1200 1300 Balance -950 -580 Intake: Intake, IV Titration 100 720 Amount Levofloxacin 500Mg-D5w 100 Pmx 500 mg In Dextrose/ Water 1 100ml.bag @ 100 mls/hr IVPB Q24H [facility] Rx#: [id number] Sodium Chloride 0.9% 1, 720 000 ml @ 75 mls/hr IV . [id number] [facility] Rx#:[id number] Other 150 Output: Urine 1200 1300 Uretheral (Payton) 1200 1300 Other: Voiding Method Indwelling Catheter Indwelling Catheter 03/05/18 08:10 03/04/18 17:11 Assessment and Plan Assessment: ASSESSMENT 1. UTI with sepsis 2. Acute kidney injury, baseline creatinine 1 repeat this morning 3.7. Nephrology is following. Antihypertensives and diuretics have been held. 3. Acute on chronic systolic heart failure 4. Chronic persistent atrial fibrillation, controlled ventricular response. Not on mental health professional anticoagulation secondary to intolerance. 5. Hyperkalemia 6. Hypermagnesemia 7. Hypertension 8. Dyslipidemia 9. Diabetes mellitus 10. History of CVA 11. Status post PEG tube with possible cellulitis at the site PLAN Obtain 2D echocardiogram and doppler study to assess cardiac structure and function. Check proBNP. Diuretics per nephrology. Continue carvedilol 3.125 mg BID and atorvastatin 20 mg daily. Ongoing medical management of acute kidney injury and sepsis. Further recommendations to follow. Thank you kindly for this consultation. Nurse Practitioner note has been reviewed, I agree with a documented findings and plan of care. Patient was seen and examined.
[2018-03-05] MEDS: AZTREONAM 2 GM in SODIUM CHLORIDE 0.9% 100 ML IVPB SCH ×2 (12:37→20:59)
[2018-03-05] MEDS: NYSTATIN 100,000 UNIT/GM POWD 15 GM TOPICAL SCH ×2 (12:40→21:02)
[2018-03-05] MEDS: SODIUM CHLORIDE 0.9% 1,000 ML IV SCH ×2 (12:40→23:38)
[2018-03-05 12:57] LABS: Hemoglobin A1C 7.2 % (4.0-6.0)
--- NOTE | 2018-03-05 13:05 | ECHOF ---
Referral Reason:fluid overload MEASUREMENTS -------- HEIGHT: 157.5 cm WEIGHT: 93.9 kg BP: 126/65 IVSd: 1.1 cm (0.6 - 1.1) LVIDd: 4.1 cm (3.9 - 5.3) LVPWd: 1.2 cm (0.6 - 1.1) IVSs: 1.4 cm LVIDs: 2.5 cm LVPWs: 2.0 cm Ao Diam: 2.2 cm (2.0 - 3.7) AV Cusp: 1.5 cm (1.5 - 2.6) LA Diam: 3.2 cm (2.7 - 3.8) MV EXCURSION: 15.271 mm (> 18.000) MV EF SLOPE: 48 mm/s (70 - 150) EPSS: 0.5 cm RAP: 5.00 mmHg RVSP: 21.56 mmHg FINDINGS -------- Undetermined rhythm. This was a technically difficult study with suboptimal views. The left ventricular size is normal. There is borderline concentric left ventricular hypertrophy. Overall left ventricular systolic function is mildly impaired with, an EF between 45 - 50 %. The right ventricle is normal in size and function. The left atrium is normal in size. The right atrium is normal in size. Lumason used Aortic valve is trileaflet and is mildly thickened. The mitral valve leaflets are mildly thickened. There is trace mitral regurgitation. Mild tricuspid regurgitation present. The right ventricular systolic pressure, as measured by Doppl er, is 21.56mmHg. Trace/mild (physiologic) pulmonic regurgitation. The aortic root size is normal. The pericardium is normal. CONCLUSIONS -------- 1. Undetermined rhythm. 2. This was a technically difficult study with suboptimal views. 3. The left ventricular size is normal. 4. There is borderline concentric left ventricular hypertrophy. 5. Overall left ventricular systolic function is mildly impaired with, an EF between 45 - 50 %. 6. The right ventricle is normal in size and function. 7. The left atrium is normal in size. 8. The right atrium is normal in size. 9. Lumason used 10. Aortic valve is trileaflet and is mildly thickened. 11. The mitral valve leaflets are mildly thickened. 12. There is trace mitral regurgitation. 13. Mild tricuspid regurgitation present. 14. The right ventricular systolic pressure, as measured by Doppler, is 21.56mmHg. 15. Trace/mild (physiologic) pulmonic regurgitation. 16. The aortic root size is normal. 17. The pericardium is normal. COUNTRY SINGER: Brisa Cottrell RDCS
--- NOTE | 2018-03-05 15:32 | PN ---
PROGRESS NOTE The patient is seen for followup for acute kidney injury. She has been confused. Blood pressure this morning was 126/65, heart rate was 96 per minute. Patient is afebrile. Examination of the heart: S1, S2. Examination lungs: Bilateral breath sounds are heard. Abdomen is soft, nontender. Exam of lower extremities shows no significant edema. LABS: Show serum creatinine down to 2.54, sodium 139, potassium 4.9, BUN is 94, which is down from 111 on initial admission. ASSESSMENT: 1. Acute kidney injury, nonoliguric, currently improving. Patient is maintained on IV fluids. She has an indwelling Payton catheter and she has had good urine output. 2. Cardiomyopathy, ejection fraction 45-50%. 3. Urinary tract infection with sepsis, maintained on IV antibiotics. 4. History of cerebrovascular accident. 5. Hyperkalemia secondary to acute kidney injury, currently improved. 6. Coagulase-negative Staph bacteremia. PLAN: Continue IV fluids. Continue empiric antibiotics. Urine culture grew gram-negative bacilli. Encourage increased oral intake and repeat labs in a.m. MMODL / IJN: [id number] /
[2018-03-05 17:06] LABS: Glucose,Whole Blood 236 mg/dL (75-99)
--- NOTE | 2018-03-05 19:49 | HP ---
HISTORY AND PHYSICAL BRIEF HISTORY AND PHYSICAL: Patient was admitted in my absence and came to the emergency room with mental status changes and urinary tract infection. She was also dehydrated. She does have renal failure, but her BUN was up to 111 with a creatinine of 4. She is admitted with diagnoses: 1. Mental status changes. 2. . 3. Renal failure. 4. Dehydration. 5. Urinary tract infection with gram negative bacilli and gram-positive coagulase staph in a blood culture. MMODL / IJN: [id number] /
--- NOTE | 2018-03-05 19:56 | PN ---
PROGRESS NOTE DATE OF SERVICE: 03/05/2018 CHIEF COMPLAINT: Congestive heart failure, renal failure, dehydration and prerenal azotemia. HISTORY OF PRESENT ILLNESS: This lady is slightly improving. BUN and creatinine are slowly coming down. She is being followed by Nephrology. PHYSICAL EXAM: Chest demonstrates poor breath sounds with scattered rales. Cardiac exam is normal. The abdomen is soft and protuberant. IMPRESSION: 1. Mental status changes. 2. Urinary tract infection. 3. Dehydration. 4. Congestive heart failure. 5. Acute renal failure. PLAN: Continue with rehydration and follow renal function closely. MMODL / IJN: [id number] /
[2018-03-05 19:59] LABS: Glucose,Whole Blood 216 mg/dL (75-99)
[2018-03-05] MEDS: ATORVASTATIN 20 MG TAB PEG/G-TUBE SCH (21:01)
--- NOTE | 2018-03-06 04:09 | PN ---
PROGRESS NOTE DATE OF SERVICE: 03/05/2018. REASON FOR FOLLOWUP: Urinary tract infection. INTERVAL HISTORY: The patient is afebrile. She remains to be pleasantly confused and unable to provide any history. No nausea or vomiting have been noticed. Tolerating tube feeds and no diarrhea. EXAMINATION: Blood pressure is 126/72 with a pulse of 97, temperature 98.2. She is 97% on room air. General description is an elderly female lying in bed in no distress. RESPIRATORY SYSTEM: Unlabored breathing. Clear to auscultation anteriorly. HEART: S1, S2. Regular rate and rhythm. ABDOMEN: Soft, no tenderness. LABS: Hemoglobin 9.6, white count 9.2 with a BUN of 94, creatinine is 2.54. DIAGNOSTIC IMPRESSION AND PLAN: 1. Patient admitted to hospital with mental status changes multifactorial with likely component of urinary tract infection. Urine did shows an E coli sensitive pathogen. Currently on Azactam because of CEFEPIME ALLERGY and that will be transitioned to oral Cipro on discharge. 2. Positive blood culture with coagulase negative staph likely skin contamination. No need for further workup for the same. Continue supportive care. MMODL / IJN: [id number] /
[2018-03-06] MEDS: SYMBICORT 160-4.5 MCG INHALER INHALATION SCH ×3 (07:18→20:22)
[2018-03-06] MEDS: ALBUTEROL NEBULIZED 2.5 MG/3 ML INHALATION PRN (07:29)
[2018-03-06 07:45] LABS: Glucose,Whole Blood 186 mg/dL (75-99)
[2018-03-06 08:18] LABS: Basophils % (A) 0 %; Eosinophils # (A) 0.1 k/uL (0-0.7); Eosinophils % (A) 1 %; HCT 30.1 % (34.0-46.0); HGB 9.6 gm/dL (11.4-16.0); Hypochromasia Slight; Lymphocytes % (A) 12 %; MCH 31.3 pg (25.0-35.0); MCHC 31.8 g/dL (31.0-37.0); MCV 98.5 fL (80.0-100.0); Macrocytosis Slight; Mean Platelet Volume 8.2; Monocytes # (A) 0.6 k/uL (0-1.0); Monocytes % (A) 7 %; Neutrophils # (A) 6.1 k/uL (1.3-7.7); Neutrophils % (A) 76 %; Platelet Count 204 k/uL (150-450); RBC 3.05 m/uL (3.80-5.40); RDW 15.3 % (11.5-15.5); WBC 8.1 k/uL (3.8-10.6)
[2018-03-06 08:22] LABS: Calcium 8.9 mg/dL (8.4-10.2); Potassium 4.8 mmol/L (3.5-5.1)
[2018-03-06] MEDS: AZTREONAM 2 GM in SODIUM CHLORIDE 0.9% 100 ML IVPB SCH (08:52)
[2018-03-06] MEDS: OXYBUTYNIN CHLORIDE 5 MG TAB PEG/G-TUBE SCH ×3 (08:56→21:55)
[2018-03-06] MEDS: ASCORBIC ACID 500 MG TAB PEG/G-TUBE SCH (08:57)
[2018-03-06] MEDS: CARVEDILOL 3.125 MG TAB PEG/G-TUBE SCH ×2 (08:57→17:07)
[2018-03-06] MEDS: ALLOPURINOL 100 MG TAB PEG/G-TUBE SCH (08:57)
[2018-03-06] MEDS: HEPARIN SODIUM,PORCINE 5,000 UNIT/ML 1 ML VIAL SQ SCH ×2 (08:57→21:55)
[2018-03-06] MEDS: PANTOPRAZOLE 40 MG TABLET PO SCH (08:57)
[2018-03-06] MEDS: CHOLECALCIFEROL 400 UNIT TAB PEG/G-TUBE SCH (08:57)
[2018-03-06] MEDS: NYSTATIN 100,000 UNIT/GM POWD 15 GM TOPICAL SCH ×2 (09:19→21:56)
[2018-03-06] MEDS: INSULIN ASPART 100 UNIT/ML 1 ML 10 ML VIAL SQ SCH ×3 (09:19→18:02)
[2018-03-06] MEDS: SODIUM CHLORIDE 0.9% 1,000 ML IV SCH (09:35)
--- NOTE | 2018-03-06 13:07 | P.PN ---
Subjective This is a pleasant 67-year-old female past medical history significant for chronic persistent atrial fibrillation, dyslipidemia, hypertension, chronic kidney disease, CVA, asthma, PEG tube and diabetes mellitus. She follows with Dr. Wayne in the office. We've been asked to see her in consultation for possibility of heart failure. She presented to the hospital with symptoms of altered mental status. She was febrile and was being treated for an outpatient urinary tract infection and has been diagnosed with sepsis secondary to urinary tract infection since admission. At the time of exam she is seen resting comfortably in bed in no acute distress with ongoing altered mental status. She is screaming out, not answering questions and is a poor historian. All information is obtained from the medical record. 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 She is currently receiving IV antibiotics. Laboratory data reviewed , hemoglobin 9.6, platelets 206, potassium last night 5.3, sodium 134, creatinine 3.7, magnesium 2.8. Baseline renal function is normal for the previous 2 years. Although she did have a history of mild renal insufficiency noted in 2013. Nephrology has recommended gentle hydration, holding diuretics and antihypertensives as well as measures to reduce potassium. EKG on arrival reveals atrial fibrillation with controlled ventricular response a bundle branch block pattern. Home medications included simvastatin 40 mg daily, losartan 25 mg daily, Lasix 40 mg daily, carvedilol 3.125 mg twice a day. She also is on Ultram, Klonopin, Seroquel, Ditropan, Zofran, Prilosec, Levemir, NovoLog, Advair, allopurinol and Ventolin. 03/06/2018 Patient is seen and examined resting comfortably in bed in no acute distress. She continues to be in atrial fibrillation with controlled ventricular response. Echocardiogram performed yesterday reveals mildly impaired LV systolic function with EF 45-50%. Creatinine has improved to 1.76 down from 4.0 on admission. Hgb 9.6, plt 204, sodium 144, potassium 4.8, proBNP 6,320. Blood pressure this morning 179/84 heart rate 84. Objective - Vital Signs Vital signs: Vital Signs Temp 98.4 F 03/06/18 07:37 Pulse 84 03/06/18 07:45 Resp 22 03/06/18 07:37 BP 179/84 03/06/18 07:37 Pulse Ox 94 L 03/06/18 07:37 Intake & Output 03/05/18 03/06/18 03/06/18 18:59 06:59 18:59 Intake Total 1580 100 Output Total 1200 850 Balance 380 -750 Weight 91.8 kg 92 kg Intake: IV 900 Sodium Chloride 0.9% 1, 900 000 ml @ 75 mls/hr IV . [id number] BONNY Rx#:[id number] Intake, IV Titration 200 100 Amount Aztreonam 2 gm In Sodium 100 100 Chloride 0.9% 100 ml @ 100 mls/hr IVPB Q12HR BONNY Rx#:[id number] Levofloxacin 500Mg-D5w 100 Pmx 500 mg In Dextrose/ Water 1 100ml.bag @ 100 mls/hr IVPB Q24H BONNY Rx#: [id number] Oral 480 Output: Urine 1200 850 Uretheral (Payton) 850 Other: Voiding Method Indwelling Catheter Indwelling Catheter Indwelling Catheter # Voids 4 0 # Bowel Movements 1 - Exam GENERAL: Well-appearing, well-nourished and in no acute distress. NECK: Supple without JVD or thyromegaly. LUNGS: Expiratory wheeze noted. Respiration equal and unlabored. No rales or rhonchi. HEART: Irregular rate and rhythm with systolic murmurs,no rubs or gallops. S1 and S2 heard. EXTREMITIES: Normal range of motion, no edema. No clubbing or cyanosis. Peripheral pulses intact and strong. - Labs CBC & Chem 7: 03/06/18 07:22 03/06/18 07:22 Labs: Abnormal Lab Results - Last 24 Hours (Table) 03/03/18 03/05/18 03/05/18 Range/Units 15:00 17:04 19:56 RBC (3.80-5.40) m/uL Hgb (11.4-16.0) gm/dL Hct (34.0-46.0) % BUN (7-17) mg/dL Creatinine (0.52-1.04) mg/dL Glucose (74-99) mg/dL POC Glucose (mg/dL) 236 H 216 H (75-99) mg/dL Hemoglobin A1c 7.2 H (4.0-6.0) % 03/06/18 03/06/18 03/06/18 Range/Units 07:22 07:22 07:34 RBC 3.05 L (3.80-5.40) m/uL Hgb 9.6 L (11.4-16.0) gm/dL Hct 30.1 L (34.0-46.0) % BUN 85 H* (7-17) mg/dL Creatinine 1.76 H (0.52-1.04) mg/dL Glucose 152 H (74-99) mg/dL POC Glucose (mg/dL) 186 H (75-99) mg/dL Hemoglobin A1c (4.0-6.0) % Microbiology - Last 24 Hours (Table) 03/03/18 15:00 Blood Culture Gram Stain - Final Blood Blood Culture - Final Staphylococcus epidermidis 03/03/18 15:00 Urine Culture - Final Urine,Catheterized Escherichia coli Assessment and Plan Assessment: ASSESSMENT 1. UTI with sepsis 2. Acute kidney injury, baseline creatinine 1 repeat this morning 3.7. Nephrology is following. Antihypertensives and diuretics have been held. 3. Acute on chronic systolic heart failure 4. Chronic persistent atrial fibrillation, controlled ventricular response. Not on terminal operator anticoagulation secondary to intolerance. 5. Hyperkalemia 6. Hypermagnesemia 7. Hypertension 8. Dyslipidemia 9. Diabetes mellitus 10. History of CVA 11. Status post PEG tube with possible cellulitis at the site PLAN Repeat blood pressure. If still high will need to add possibly amlodipine 5 mg. Start back on diuretics when appropriate per nephrology. Nurse Practitioner note has been reviewed, I agree with a documented findings and plan of care. Patient was seen and examined.
[2018-03-06 13:23] LABS: Glucose,Whole Blood 221 mg/dL (75-99)
--- NOTE | 2018-03-06 14:21 | XR ---
EXAMINATION TYPE: XR chest 1V DATE OF EXAM: 03/06/2018 CLINICAL HISTORY: Difficulty breathing progress study. TECHNIQUE: Single AP portable upright view of the chest is obtained. COMPARISON: Chest x-ray from 3 days earlier FINDINGS: Evaluation slightly suboptimal due to portable technique and patient's large body habitus. There is persistent cardiomegaly with atherosclerotic thoracic aorta. There is chronic parenchymal c hange with improved aeration right upper lobe. No new focal airspace opacity, pleural effusion, or pn eumothorax is seen. Osseous structures are intact. IMPRESSION: Chronic changes and cardiomegaly with resolving right upper lobe infiltrate and/or edema, no new infiltrate is seen.
[2018-03-06 18:01] LABS: Glucose,Whole Blood 221 mg/dL (75-99)
--- NOTE | 2018-03-06 18:40 | PN ---
PROGRESS NOTE Patient is seen for followup for acute kidney injury. She is currently maintained on IV fluids. Renal function has improved significantly with creatinine down to 1.7 from 4 mg/dL. Patient is awake. She has been confused. On examination, blood pressure is 140/88, heart rate of 83 per minute. Patient is afebrile. EXAMINATION OF THE HEART: S1, S2. EXAMINATION OF LUNGS: Bilateral breath sounds are heard. ABDOMEN: Soft, non-tender. Examination of lower extremities shows no evidence of edema. MUSIC PROFESSOR exam shows patient is moving all 4 extremities. She is confused. Labs show sodium 144, potassium 4.8, chloride 107, BUN 85, serum creatinine 1.76, hemoglobin 9.6 g/dL. ASSESSMENT: 1. Acute kidney injury, prerenal, currently improving. 2. Cardiomyopathy, ejection fraction 45% to 50%. 3. History of cerebrovascular accident. 4. Urinary tract infection with sepsis, maintained on IV antibiotics. Urine cultures grew E coli. 5. Staphylococcus epidermidis bacteremia. 6. Hyperkalemia associated with acute kidney injury, now improved. PLAN: Encourage increased oral intake. Continue with IV fluids. Continue to avoid nephrotoxic agents. MMODL / IJN: [id number] /
[2018-03-06] MEDS: AZTREONAM 1 GM in SODIUM CHLORIDE 0.9% 50 ML IVPB SCH (21:55)
[2018-03-06] MEDS: ATORVASTATIN 20 MG TAB PEG/G-TUBE SCH (21:55)
--- NOTE | 2018-03-06 23:05 | PN ---
PROGRESS NOTE DATE OF SERVICE: 03/06/2018 REASON FOR FOLLOWUP: Urinary tract infection. INTERVAL HISTORY: The patient is currently afebrile. She seems to be breathing comfortably. No nausea or vomiting has been noticed or any diarrhea. PHYSICAL EXAMINATION: Blood pressure 140/88 with a pulse of 83 today, temperature 98.5. She is 97% on 3 L nasal cannula. General description is an elderly female lying in bed in no distress. RESPIRATORY SYSTEM: Unlabored breathing. Clear to auscultation anteriorly. HEART: S1, S2. Regular rate and rhythm. ABDOMEN: Soft. No tenderness. LABS: Hemoglobin 9.6, white count 8.1 with a BUN of 85, creatinine 1.76. Urine with an E coli. Blood culture with Staph epi contamination. DIAGNOSTIC IMPRESSION/PLAN: 1. Patient with an Escherichia coli urinary tract infection, for which the patient continues on Azactam. Finish therapy with oral Levaquin once her oral intake is improved. 2. Patient with erythema around the PEG tube site, on nystatin powder. 3. Positive blood culture with Staphylococcus epidermidis contamination. No need for further workup for the same. MMODL / IJN: [id number] /
[2018-03-07 00:14] LABS: Glucose,Whole Blood 193 mg/dL (75-99)
[2018-03-07] MEDS: INSULIN ASPART 100 UNIT/ML 1 ML 10 ML VIAL SQ SCH ×4 (00:17→17:10)
[2018-03-07] MEDS: LORazepam 2 MG/ML INJ IV PRN ×2 (00:30→17:47)
[2018-03-07] MEDS: ALBUTEROL NEBULIZED 2.5 MG/3 ML INHALATION PRN ×2 (02:37→07:43)
[2018-03-07] MEDS ORDERED: FUROSEMIDE 10 MG/ML 2 ML VIAL IV ONE (02:53)
[2018-03-07 06:23] LABS: Glucose,Whole Blood 267 mg/dL (75-99)
--- NOTE | 2018-03-07 07:32 | XR ---
EXAMINATION TYPE: XR chest 1V portable DATE OF EXAM: 03/07/2018 CLINICAL HISTORY: Difficulty breathing , CHF, and hypervolemia progress study. TECHNIQUE: Single AP portable upright view of the chest is obtained. COMPARISON: Chest x-ray from one day earlier and older studies. FINDINGS: There is persistent cardiomegaly with perhaps mild central vascular congestion. There is n o new suspicious focal airspace opacity, pleural effusion, or pneumothorax seen bilaterally. Some res olving infiltrate right suprahilar region remains present. Osseous structures are intact. IMPRESSION: No significant change from yesterday, chronic parenchymal changes and cardiomegaly with p erhaps mild central vascular congestion and patchy right upper lung infiltrate remaining present.
[2018-03-07] MEDS: SYMBICORT 160-4.5 MCG INHALER INHALATION SCH ×2 (07:43→19:29)
[2018-03-07 08:15] LABS: Basophils % (A) 0 %; Eosinophils # (A) 0.1 k/uL (0-0.7); Eosinophils % (A) 1 %; HCT 31.6 % (34.0-46.0); HGB 10.2 gm/dL (11.4-16.0); Hypochromasia Moderate; Lymphocytes # (A) 0.8 k/uL (1.0-4.8); Lymphocytes % (A) 7 %; MCH 32.6 pg (25.0-35.0); MCHC 32.4 g/dL (31.0-37.0); MCV 100.6 fL (80.0-100.0); Macrocytosis Slight; Mean Platelet Volume 8.2; Monocytes # (A) 0.5 k/uL (0-1.0); Monocytes % (A) 4 %; Neutrophils # (A) 9.2 k/uL (1.3-7.7); Neutrophils % (A) 85 %; Platelet Count 215 k/uL (150-450); RBC 3.14 m/uL (3.80-5.40); RDW 15.4 % (11.5-15.5); WBC 10.8 k/uL (3.8-10.6)
[2018-03-07 09:29] LABS: Glucose,Whole Blood 264 mg/dL (75-99)
[2018-03-07 09:31] LABS: Potassium 4.7 mmol/L (3.5-5.1)
[2018-03-07] MEDS: SODIUM CHLORIDE 0.9% 1,000 ML IV SCH ×2 (11:25→17:06)
[2018-03-07] MEDS: FUROSEMIDE 40 MG TAB PO SCH ×2 (11:30→20:34)
--- NOTE | 2018-03-07 11:30 | FL ---
Modified barium swallow. HISTORY: Dysphagia. Modified barium swallow was performed with the department of speech pathology. The patient was prese nted with various consistencies of barium. There is no evidence for aspiration or penetration. Full report is to follow from the department of speech pathology. Impression: Normal study.
[2018-03-07] MEDS: CARVEDILOL 3.125 MG TAB PEG/G-TUBE SCH ×2 (11:40→17:06)
[2018-03-07] MEDS: ALLOPURINOL 100 MG TAB PEG/G-TUBE SCH (11:43)
[2018-03-07] MEDS: ASCORBIC ACID 500 MG TAB PEG/G-TUBE SCH (11:43)
[2018-03-07] MEDS: HEPARIN SODIUM,PORCINE 5,000 UNIT/ML 1 ML VIAL SQ SCH ×2 (11:44→20:34)
[2018-03-07] MEDS: CHOLECALCIFEROL 400 UNIT TAB PEG/G-TUBE SCH (11:44)
[2018-03-07] MEDS: AZTREONAM 1 GM in SODIUM CHLORIDE 0.9% 50 ML IVPB SCH ×2 (11:44→20:34)
[2018-03-07] MEDS: NYSTATIN 100,000 UNIT/GM POWD 15 GM TOPICAL SCH ×2 (11:45→20:35)
[2018-03-07] MEDS: PANTOPRAZOLE 40 MG TABLET PO SCH (11:50)
[2018-03-07] MEDS: OXYBUTYNIN CHLORIDE 5 MG TAB PEG/G-TUBE SCH ×3 (11:50→22:19)
[2018-03-07 12:41] LABS: Glucose,Whole Blood 152 mg/dL (75-99)
--- NOTE | 2018-03-07 13:41 | P.PN ---
Subjective This is a pleasant 67-year-old female past medical history significant for chronic persistent atrial fibrillation, dyslipidemia, hypertension, chronic kidney disease, CVA, asthma, PEG tube and diabetes mellitus. She follows with Dr. Wayne in the office. We've been asked to see her in consultation for possibility of heart failure. She presented to the hospital with symptoms of altered mental status. She was febrile and was being treated for an outpatient urinary tract infection and has been diagnosed with sepsis secondary to urinary tract infection since admission. At the time of exam she is seen resting comfortably in bed in no acute distress with ongoing altered mental status. She is screaming out, not answering questions and is a poor historian. All information is obtained from the medical record. She is also being seen in consultation by nephrologyChest x-ray on admission reveals moderate cardiomegaly and interstitial changes, possible CHF with pulmonary vascular congestion, opacity in the right upper lobe career representative of pneumonia. She is currently receiving IV antibiotics. Laboratory data reviewed , hemoglobin 9.6, platelets 206, potassium last night 5.3, sodium 134, creatinine 3.7, magnesium 2.8. Baseline renal function is normal for the previous 2 years. Although she did have a history of mild renal insufficiency noted in 2013. Nephrology has recommended gentle hydration, holding diuretics and antihypertensives as well as measures to reduce potassium. EKG on arrival reveals atrial fibrillation with controlled ventricular response a bundle branch block pattern. Home medications included simvastatin 40 mg daily, losartan 25 mg daily, Lasix 40 mg daily, carvedilol 3.125 mg twice a day. She also is on Ultram, Klonopin, Seroquel, Ditropan, Zofran, Prilosec, Levemir, NovoLog, Advair, allopurinol and Ventolin. 03/06/2018 Patient is seen and examined resting comfortably in bed in no acute distress. She continues to be in atrial fibrillation with controlled ventricular response. Echocardiogram performed yesterday reveals mildly impaired LV systolic function with EF 45-50%. Creatinine has improved to 1.76 down from 4.0 on admission. Hgb 9.6, plt 204, sodium 144, potassium 4.8, proBNP 6,320. Blood pressure this morning 179/84 heart rate 84. 03/07/2018 Pt is seen and examined today. She is rather confused and talking inappropriately. Overnight she became very short of breath and anxious. Orders were given for lasix IV 20 mg, decrease fluids and xray. Xray this morning reveals no significant changes with chronic parenchymal changes, cardiomegaly and mild central venous congestion with patchy right upper lung infiltrate. Laboratory data reviewed, hgb 10.2, plt 215. BMP pending. Blood pressure 134/85 , heart rate 78, afebrile and maintaining oxygen saturation on nasal cannula. She is continued on IV antibiotics per infectious disease for urinary tract infection. There is some new lower extremity edema noted, non-pitting. Objective - Vital Signs Vital signs: Vital Signs Temp 97.6 F 03/06/18 21:30 Pulse 78 03/07/18 08:15 Resp 16 03/07/18 08:15 BP 134/85 03/06/18 21:30 Pulse Ox 99 03/06/18 21:30 Intake & Output 03/06/18 03/07/18 03/07/18 18:59 06:59 18:59 Intake Total 600 900 150 Output Total 700 1100 Balance -100 900 -950 Weight 92 kg 92 kg Intake: IV 600 Sodium Chloride 0.9% 1, 600 000 ml @ 75 mls/hr IV . [id number] [facility] Rx#:[id number] Intake, IV Titration 600 Amount Sodium Chloride 0.9% 1, 600 000 ml @ 75 mls/hr IV . [id number] [facility]ONNY Rx#:[id number] Tube Feeding 300 150 Output: Urine 700 1100 Other: Voiding Method Indwelling Catheter Indwelling Catheter Indwelling Catheter # Voids 2 # Bowel Movements 1 - Exam GENERAL: Well-appearing, well-nourished and in no acute distress. NECK: Supple without JVD or thyromegaly. LUNGS: Expiratory wheeze noted. Respiration equal and unlabored. No rales or rhonchi. HEART: Irregular rate and rhythm with systolic murmurs,no rubs or gallops. S1 and S2 heard. EXTREMITIES: Normal range of motion, trace b/l lower extremity edema. No clubbing or cyanosis. Peripheral pulses intact. - Labs CBC & Chem 7: 03/07/18 06:25 03/06/18 07:22 Labs: Abnormal Lab Results - Last 24 Hours (Table) 03/06/18 03/07/18 03/07/18 Range/Units 17:57 00:12 06:20 WBC (3.8-10.6) k/uL RBC (3.80-5.40) m/uL Hgb (11.4-16.0) gm/dL Hct (34.0-46.0) % MCV (80.0-100.0) fL Neutrophils # (1.3-7.7) k/uL Lymphocytes # (1.0-4.8) k/uL POC Glucose (mg/dL) 221 H 193 H 267 H (75-99) mg/dL 03/07/18 03/07/18 03/07/18 Range/Units 06:25 09:25 12:40 WBC 10.8 H (3.8-10.6) k/uL RBC 3.14 L (3.80-5.40) m/uL Hgb 10.2 L (11.4-16.0) gm/dL Hct 31.6 L (34.0-46.0) % MCV 100.6 H (80.0-100.0) fL Neutrophils # 9.2 H (1.3-7.7) k/uL Lymphocytes # 0.8 L (1.0-4.8) k/uL POC Glucose (mg/dL) 264 H 152 H (75-99) mg/dL Microbiology - Last 24 Hours (Table) 03/03/18 15:00 Blood Culture Gram Stain - Final Blood Blood Culture - Final Staphylococcus epidermidis Assessment and Plan Assessment: ASSESSMENT 1. UTI with sepsis 2. Acute kidney injury, baseline creatinine 1 repeat this morning 3.7. Nephrology is following. Antihypertensives and diuretics have been held. 3. Acute on chronic systolic heart failure 4. Chronic persistent atrial fibrillation, controlled ventricular response. Not on buttermaker continuous churn anticoagulation secondary to intolerance. 5. Hyperkalemia 6. Hypermagnesemia 7. Hypertension 8. Dyslipidemia 9. Diabetes mellitus 10. History of CVA 11. Status post PEG tube with possible cellulitis at the site PLAN Add back on oral diuretic at 40 mg BID. Ongoing medical management of sepsis with kidney failure per primary team. We will continue to follow as needed. Please feel free to call with questions of concerns. Nurse Practitioner note has been reviewed, I agree with a documented findings and plan of care. Patient was seen and examined.
[2018-03-07 17:09] LABS: Glucose,Whole Blood 154 mg/dL (75-99)
[2018-03-07 18:23] LABS: Glucose,Whole Blood 165 mg/dL (75-99)
[2018-03-07] MEDS: ATORVASTATIN 20 MG TAB PEG/G-TUBE SCH (20:34)
[2018-03-07] MEDS ORDERED: SODIUM CHLORIDE 0.45% 1,000 ML IV SCH (21:00)
--- NOTE | 2018-03-07 21:32 | PN ---
PROGRESS NOTE Patient is seen for followup for acute kidney injury. The patient's renal function continues to improve. Her creatinine is down to 1.2 today. She is currently comfortable. The patient is maintained on IV fluids at 75 mL an hour. It appears that she has been eating. The patient is confused. EXAMINATION: Blood pressure is 128/77, heart rate 83 per minute. She is afebrile. HEART: S1, S2. LUNGS: Bilateral breath sounds are heard. Abdomen is soft, nontender, obese. Lower extremities show no significant edema. LABS: Show sodium 147, potassium 4.7, chloride 111, BUN 69, serum creatinine 1.21. ASSESSMENT: 1. Acute kidney injury, prerenal and secondary to urine retention, maintained on IV fluids. Chest x-ray early this morning showed mild pulmonary vascular congestion. The patient did receive a dose of Lasix at about 3:00 a.m. this morning. I will discontinue the IV fluids and encourage the patient to increase her oral intake. 2. Mild hypernatremia. Increase free water intake and switch IV fluids to half-normal saline. 3. Hypertension, currently controlled. 4. Type 2 diabetes. PLAN: Change IV fluids to half-normal saline. Decrease rate to about 40 mL an hour. Repeat labs in a.m. MMODL / IJN: [id number] /
--- NOTE | 2018-03-07 23:15 | PN ---
PROGRESS NOTE DATE OF SERVICE: 03/07/2018 REASON FOR FOLLOWUP: 1. Urinary tract infection. 2. PEG tube site cellulitis. INTERVAL HISTORY: The patient is afebrile. She is more awake and alert. Denies having any chest pain, shortness of breath or cough. No abdominal pain and no diarrhea, as the patient is constipated and wants a stool softener. PHYSICAL EXAMINATION: Blood pressure 122/74 with a pulse of 97, temperature 97.9. She is 98% on 2 L nasal cannula. General description is an elderly female lying in bed in no distress. RESPIRATORY SYSTEM: Unlabored breathing. Clear to auscultation anteriorly. HEART: S1, S2. Regular rate and rhythm. ABDOMEN: Soft. No tenderness. LABS: Hemoglobin 10.2, white count 10.8 with a BUN of 69, creatinine 1.21. DIAGNOSTIC IMPRESSION/PLAN: 1. Patient with Escherichia coli urinary tract infection, currently on Azactam because of her cefepime allergy. That will be transitioned to p.o. Levaquin to finish a course of therapy. 2. Patient with PEG tube site cellulitis. To continue with nystatin powder. 3. Positive blood culture for Staph epidermidis, likely contamination. No need for antibiotic therapy for the same. MMODL / IJN: [id number] /
[2018-03-08 00:07] LABS: Glucose,Whole Blood 222 mg/dL (75-99)
[2018-03-08] MEDS: INSULIN ASPART 100 UNIT/ML 1 ML 10 ML VIAL SQ SCH ×4 (00:31→18:26)
[2018-03-08] MEDS ORDERED: HALOPERIDOL LACTATE 5 MG/ML 1 ML VIAL IM PRN (00:46)
[2018-03-08] MEDS: LORazepam 2 MG/ML INJ IV PRN ×2 (00:53→09:25)
[2018-03-08] MEDS: ALBUTEROL NEBULIZED 2.5 MG/3 ML INHALATION PRN (02:10)
[2018-03-08 06:09] LABS: Glucose,Whole Blood 166 mg/dL (75-99)
[2018-03-08 06:48] LABS: Glucose,Whole Blood 182 mg/dL (75-99)
[2018-03-08 07:29] LABS: Anisocytosis Slight; Basophils # (A) 0.1 k/uL (0-0.2); Basophils % (A) 1 %; Eosinophils # (A) 0.3 k/uL (0-0.7); Eosinophils % (A) 3 %; HGB 10.5 gm/dL (11.4-16.0); Hypochromasia Slight; Lymphocytes % (A) 10 %; MCH 31.3 pg (25.0-35.0); MCV 100.9 fL (80.0-100.0); Macrocytosis Slight; Mean Platelet Volume 7.7; Monocytes # (A) 0.5 k/uL (0-1.0); Monocytes % (A) 4 %; Neutrophils # (A) 8.2 k/uL (1.3-7.7); Neutrophils % (A) 80 %; Platelet Count 275 k/uL (150-450); RBC 3.37 m/uL (3.80-5.40); RDW 16.2 % (11.5-15.5); WBC 10.3 k/uL (3.8-10.6)
[2018-03-08 07:58] LABS: Calcium 9.4 mg/dL (8.4-10.2); Potassium 4.5 mmol/L (3.5-5.1)
[2018-03-08] MEDS: SYMBICORT 160-4.5 MCG INHALER INHALATION SCH ×2 (08:56→19:58)
[2018-03-08] MEDS: CHOLECALCIFEROL 400 UNIT TAB PEG/G-TUBE SCH (09:03)
[2018-03-08] MEDS: ALLOPURINOL 100 MG TAB PEG/G-TUBE SCH (09:03)
[2018-03-08] MEDS: CARVEDILOL 3.125 MG TAB PEG/G-TUBE SCH ×2 (09:03→16:28)
[2018-03-08] MEDS: HEPARIN SODIUM,PORCINE 5,000 UNIT/ML 1 ML VIAL SQ SCH ×2 (09:03→19:52)
[2018-03-08] MEDS: FUROSEMIDE 40 MG TAB PO SCH (09:03)
[2018-03-08] MEDS: PANTOPRAZOLE 40 MG TABLET PO SCH (09:03)
[2018-03-08] MEDS: ASCORBIC ACID 500 MG TAB PEG/G-TUBE SCH (09:03)
[2018-03-08] MEDS: OXYBUTYNIN CHLORIDE 5 MG TAB PEG/G-TUBE SCH ×3 (09:03→19:53)
[2018-03-08] MEDS: AZTREONAM 1 GM in SODIUM CHLORIDE 0.9% 50 ML IVPB SCH (09:04)
[2018-03-08] MEDS: NYSTATIN 100,000 UNIT/GM POWD 15 GM TOPICAL SCH ×2 (09:05→19:57)
[2018-03-08] MEDS ORDERED: DEXTROSE 5% IN WATER 1,000 ML IV SCH (09:30)
[2018-03-08 10:19] VITALS: BMI 41.9
[2018-03-08] MEDS ORDERED: FUROSEMIDE 10 MG/ML 4 ML VIAL IV STA (10:59)
[2018-03-08] MEDS: IPRATROPIUM-ALBUTEROL 3 ML NEB INHALATION SCH ×3 (11:18→19:58)
[2018-03-08 12:01] LABS: Glucose,Whole Blood 169 mg/dL (75-99)
--- NOTE | 2018-03-08 12:16 | CDI ---
Last Revision, August 2017 Documentation Clarification Form Date: 03/08/2018 12:00:00 AM From: Zaida Costa RN, CCDS Admit Date: 03/03/2018 6:00:00 PM Patient Name: Anju Valenzuela Visit Number: [id number] Discharge Date: ATTENTION: The Clinical Documentation Specialists (CDI) and [facility] Coding Staff appreciate your assistance in clarifying documentation. Please respond to the clarification below the line at the bottom and electronically sign. The CDI & [facility] Coding staff will review the response and follow-up if needed. Please note: Queries are made part of the Legal Health Record. If you have any questions, please contact the author of this message via ITS. Dr. Alis Nunez History/Risk Factors: Chronic renal failure, CVA, Hypertension, Diabetes mellitus type 2, Chronic Atrial Fibrillation, Clinical Indicators: Present with altered mental status, ED she appears very dehydrated on exam. There was concern for UTI. Her diuretics and antihypertensive meds were held on admission. Vital signs: 89/50 92 20 97.0 03/04/18 Assessment: Nonoliguric acute kidney injury mostly prerenal secondary to intravascular volume depletion from diuretics as well as hypotension. On admission BUN 111, CR 4.0, GFR 11 03/08/18 Current BUN 56, CR 0.98 GFR 0.98 Patients Baseline: CR 0.90 (per ED notes) Treatment: 1/2 Normal saline per orders Monitor Labs Encourage increased oral intake Avoid nephrotoxic agents In order to capture the severity of condition, please clarify if the condition signifies: CKD Stage 1 (GFR > 90) CKD Stage 2 (GFR 60-89) CKD Stage 3 (GFR 30-59) CKD Stage 4 (GFR 15-29) Other, please specify Unable to determine Please continue to document in your progress notes and discharge summary in order to capture severity of illness and risk of mortality. Include clinical findings that support your diagnosis. MTDD
--- NOTE | 2018-03-08 12:48 | CDI ---
Last Revision, August 2017 Documentation Clarification Form Date: 03/08/2018 12:00:00 AM From: Zaida Costa Admit Date: 03/03/2018 6:00:00 PM Patient Name: Anju Valenzuela Visit Number: [id number] Discharge Date: ATTENTION: The Clinical Documentation Specialists (CDI) and [facility] Coding Staff appreciate your assistance in clarifying documentation. Please respond to the clarification below the line at the bottom and electronically sign. The CDI & [facility] Coding staff will review the response and follow-up if needed. Please note: Queries are made part of the Legal Health Record. If you have any questions, please contact the author of this message via ITS. Dr. Vishnu Malone H/P documentation on 03/03/18 has UTI with sepsis present on admission. ID Consult: The patient admitted to the hospital with sepsis in a patient who did have a fever of 101 degree. the patient did have elevated white count source is likely UTI failing outpatient oral antibiotic therapy. Escherichia coli urinary tract infection. History/Risk Factors: Chronic renal failure, Diabetes mellitus type 2, Chronic Atrial Fibrillation, CVA, Hypertension Clinical Indicators: Present with change in mental status, progressive weakness and confusion with fever up to 101. On arrival patient is stuporous, unable to give coherent history. WBC/Left Shift: 12.3, 16.0 Lactic acid: 0.7 Blood cultures: Gram-positive coagulase staph Urine Culture: Escheirchia coli Vitals signs on admission: 89/50 92 20 97.0 100 % 4/L NC Other Clinical Indicators: BUN 111, CR 4.0 with dry mucosa membranes. Treatment: Aztreonam IV Monitor Labs In your professional opinion, please clarify if these findings signify one of the following conditions, whether the condition is POA, and cause, if known: Condition Sepsis ruled in Sepsis ruled out Other, please specify Unable to determine Link or clarify if there is associated (due to/with): Organ failure SIRS Criteria..2 or more of the following may indicate SIRS: Temperature < 96.8F (36C) or > 101.0F (38.3C) Heart Rate > 90 bpm Respiratory Rate > 20 breaths/min or PaCO2 < 32 mmHg White Blood Cell Count > 12,000 or < 4,000 cells/mm3 or > 10% bands Lactate >2.0 mmol/L (>4.0 is equivalent to septic shock) Please continue to document in your progress notes and discharge summary in order to capture severity of illness and risk of mortality. Include clinical findings that support your diagnosis. MTDD
--- NOTE | 2018-03-08 15:04 | PN ---
PROGRESS NOTE The patient is seen for followup for acute kidney injury. Renal function is . However, currently the patient is volume overloaded. She is complaining of mild shortness of breath. PHYSICAL EXAMINATION: Blood pressure is 136/63, heart rate 104 per minute. She is afebrile. Examination of the heart: S1, S2. Examination lungs: Bilateral breath sounds are heard. Abdomen is soft, obese, nontender. Examination lower extremity shows edema 1+ bilaterally. 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 LAB: Show sodium 149, potassium 4.5, chloride 110, BUN 56, serum creatinine 0.98, hemoglobin 10.5 g/dL. ASSESSMENT: 1. Acute kidney injury, mainly prerenal, currently significantly improved. The patient's creatinine is down from 4 to 0.98 now. 2. Volume overload. IV fluids were discontinued. However, last night the patient was started on D5W secondary to the hypernatremia. She did receive 1 dose of Lasix. I will maintain her on her regular scheduled dose of Lasix. This will worsen the hypernatremia and we can resume D5W. I will also add free water down her PEG tube. 3. Urinary tract infection with E coli, maintained on aztreonam. 4. Bacteremia with Staph epi 1 out of 2 blood cultures. 5. Hypertension, currently stable. 6. Volume overload. Start IV Lasix. 7. Hypernatremia associated with free water deficit. Will increase free water down the feeding tube. PLANS: Start Lasix, add free water down the feeding. DC IV fluids for now and if the serum sodium remains elevated, we will add water in the form of D5 again. MMODL / IJN: [id number] /
--- NOTE | 2018-03-08 16:45 | PN ---
PROGRESS NOTE DATE OF SERVICE: 03/08/2018 REASON FOR FOLLOWUP: E coli urinary tract infection. INTERVAL HISTORY: The patient is afebrile. She is currently breathing comfortably, hemodynamically stable. No nausea or vomiting has been noted. tube feed. No diarrhea. PHYSICAL EXAMINATION: Blood pressure is 136/63, pulse of 84, temperature 98.5. She is 92% on room air. General description is an elderly female lying in bed in no distress. RESPIRATORY SYSTEM: Unlabored breathing. Clear to auscultation anteriorly. HEART: S1, S2. Regular rate and rhythm. ABDOMEN: Soft. No tenderness. LABS: Hemoglobin 10.5, white count 10.3, creatinine 0.98. DIAGNOSTIC IMPRESSION AND PLAN: 1. Patient with Escherichia coli urinary tract infection. Antibiotic will be switched over to Cipro 500 mg twice a day for another 3-5 days. 2. Positive blood culture with Staphylococcus epidermidis contamination. 3. on the PEG tube site. Continue nystatin powder. Continue supportive care. MMODL / IJN: [id number] /
--- NOTE | 2018-03-08 17:31 | PN ---
PROGRESS NOTE DATE OF SERVICE: 03/06/18 CHIEF COMPLAINT: 1. Acute renal failure. 2. Chronic renal failure. 3. Congestive heart failure. 4. Diabetes mellitus. HISTORY OF PRESENT ILLNESS: This lady continues to be delirious and extremely agitated. Renal function is improving, but very slowly. She has no complaints of pain or shortness of breath. PHYSICAL EXAM: Chest is fairly clear. There are occasional rales. Cardiac exam is normal. The abdomen is protuberant, soft. IMPRESSION: 1. Acute renal failure. 2. Chronic renal failure. 3. Congestive heart failure. 4. History of hypertension. 5. Poorly controlled diabetes mellitus. 6. Obesity. 7. Mental debility. PLAN: Continue with current treatment and follow with Nephrology. MMODL / IJN: [id number] /
--- NOTE | 2018-03-08 17:31 | PN ---
PROGRESS NOTE DATE OF SERVICE: 03/08/2018 CHIEF COMPLAINT: 1. Acute on chronic renal failure. 2. Persistent delirium and agitation. 3. Congestive heart failure. HISTORY OF PRESENT ILLNESS: This lady is still doing about the same. She is still very agitated, yelling out, and generally creating a disturbance. PHYSICAL EXAM: She has decreased breath sounds throughout with occasional rales. Cardiac exam is unchanged. Abdomen is soft, nontender. IMPRESSION: 1. Renal failure, acute. 2. Renal failure, chronic. 3. Congestive heart failure. 4. Hypertension. 5. Mental debility. PLAN: Continue with efforts to improve her renal function. MMODL / IJN: [id number] /
--- NOTE | 2018-03-08 17:37 | PN ---
PROGRESS NOTE DATE OF SERVICE: 03/07/2018 CHIEF COMPLAINT: Acute exacerbation of chronic renal failure. HISTORY OF PRESENT ILLNESS: This lady continues to be extremely agitated and difficult to manage. BUN and creatinine are still quite high. PHYSICAL EXAM: She is still very agitated and confused, but probably less so. Skin color is normal. Chest is fairly clear with occasional rales. Cardiac is normal. The abdomen is protuberant, soft and nontender. IMPRESSION: 1. Acute exacerbation chronic renal failure. 2. Diabetes. 3. Congestive heart failure. 4. Delirium. PLAN: No change in program. She has required sedation from time to time and this may need to be continued. Will also have to consider discharge planning, which is in place. MMODL / IJN: [id number] /
[2018-03-08 18:11] LABS: Glucose,Whole Blood 166 mg/dL (75-99)
[2018-03-08] MEDS: CIPROFLOXACIN HCL 500 MG TAB PO SCH (19:52)
[2018-03-08] MEDS: FUROSEMIDE 10 MG/ML 4 ML VIAL IV SCH (19:52)
[2018-03-08] MEDS: ATORVASTATIN 20 MG TAB PEG/G-TUBE SCH (19:52)
[2018-03-09 00:13] LABS: Glucose,Whole Blood 221 mg/dL (75-99)
[2018-03-09] MEDS: INSULIN ASPART 100 UNIT/ML 1 ML 10 ML VIAL SQ SCH ×4 (00:23→18:05)
[2018-03-09 06:09] LABS: Glucose,Whole Blood 207 mg/dL (75-99)
[2018-03-09 07:13] LABS: Anisocytosis Slight; Basophils % (A) 0 %; Eosinophils # (A) 0.2 k/uL (0-0.7); Eosinophils % (A) 2 %; HCT 33.4 % (34.0-46.0); HGB 10.2 gm/dL (11.4-16.0); Hypochromasia Slight; Lymphocytes % (A) 11 %; MCH 30.9 pg (25.0-35.0); MCHC 30.7 g/dL (31.0-37.0); MCV 100.7 fL (80.0-100.0); Macrocytosis Slight; Mean Platelet Volume 7.4; Monocytes # (A) 0.4 k/uL (0-1.0); Monocytes % (A) 4 %; Neutrophils # (A) 7.4 k/uL (1.3-7.7); Neutrophils % (A) 80 %; Platelet Count 270 k/uL (150-450); RBC 3.32 m/uL (3.80-5.40); RDW 16.2 % (11.5-15.5); WBC 9.3 k/uL (3.8-10.6)
[2018-03-09] MEDS: LORazepam 2 MG/ML INJ IV PRN ×2 (07:37→14:26)
[2018-03-09] MEDS: CIPROFLOXACIN HCL 500 MG TAB PO SCH ×2 (07:42→20:42)
[2018-03-09] MEDS: CHOLECALCIFEROL 400 UNIT TAB PEG/G-TUBE SCH (07:42)
[2018-03-09] MEDS: HEPARIN SODIUM,PORCINE 5,000 UNIT/ML 1 ML VIAL SQ SCH ×2 (07:42→20:43)
[2018-03-09] MEDS: ASCORBIC ACID 500 MG TAB PEG/G-TUBE SCH (07:42)
[2018-03-09] MEDS: OXYBUTYNIN CHLORIDE 5 MG TAB PEG/G-TUBE SCH ×3 (07:42→20:43)
[2018-03-09] MEDS: CARVEDILOL 3.125 MG TAB PEG/G-TUBE SCH ×2 (07:42→18:07)
[2018-03-09] MEDS: FUROSEMIDE 10 MG/ML 4 ML VIAL IV SCH ×2 (07:42→20:43)
[2018-03-09] MEDS: PANTOPRAZOLE 40 MG TABLET PO SCH (07:42)
[2018-03-09] MEDS: ALLOPURINOL 100 MG TAB PEG/G-TUBE SCH (07:42)
[2018-03-09] MEDS: NYSTATIN 100,000 UNIT/GM POWD 15 GM TOPICAL SCH ×2 (07:43→20:43)
[2018-03-09] MEDS: IPRATROPIUM-ALBUTEROL 3 ML NEB INHALATION SCH ×4 (08:32→19:50)
[2018-03-09] MEDS: SYMBICORT 160-4.5 MCG INHALER INHALATION SCH ×2 (08:32→19:52)
[2018-03-09 08:40] LABS: Calcium 9.4 mg/dL (8.4-10.2)
[2018-03-09 11:47] LABS: Glucose,Whole Blood 160 mg/dL (75-99)
--- NOTE | 2018-03-09 14:01 | CDI ---
Last Revision, August 2017 Documentation Clarification Form Date: 03/08/2018 12:00:00 AM From: Zaida Costa Admit Date: 03/03/2018 6:00:00 PM Patient Name: Anju Valenzuela Visit Number: [id number] Discharge Date: ATTENTION: The Clinical Documentation Specialists (CDI) and [facility] Coding Staff appreciate your assistance in clarifying documentation. Please respond to the clarification below the line at the bottom and electronically sign. The CDI & [facility] Coding staff will review the response and follow-up if needed. Please note: Queries are made part of the Legal Health Record. If you have any questions, please contact the author of this message via ITS. Dr. Vishnu Malone H/P documentation on 03/03/18 has UTI with sepsis present on admission. ID Consult: The patient admitted to the hospital with sepsis in a patient who did have a fever of 101 degree. the patient did have elevated white count source is likely UTI failing outpatient oral antibiotic therapy. Escherichia coli urinary tract infection. History/Risk Factors: Chronic renal failure, Diabetes mellitus type 2, Chronic Atrial Fibrillation, CVA, Hypertension Clinical Indicators: Present with change in mental status, progressive weakness and confusion with fever up to 101. On arrival patient is stuporous, unable to give coherent history. WBC/Left Shift: 12.3, 16.0 Lactic acid: 0.7 Blood cultures: Gram-positive, Staphylococcus, epidermidis Urine Culture: Escheirchia coli Vitals signs on admission: 89/50 92 20 97.0 100 % 4/L NC Other Clinical Indicators: BUN 111, CR 4.0 with dry mucosa membranes. Treatment: Aztreonam IV Monitor Labs In your professional opinion, please clarify if these findings signify one of the following conditions, whether the condition is POA, and cause, if known: Condition Sepsis ruled in Sepsis ruled out Other, please specify Unable to determine Link or clarify if there is associated (due to/with): Organ failure SIRS Criteria..2 or more of the following may indicate SIRS: Temperature < 96.8F (36C) or > 101.0F (38.3C) Heart Rate > 90 bpm Respiratory Rate > 20 breaths/min or PaCO2 < 32 mmHg White Blood Cell Count > 12,000 or < 4,000 cells/mm3 or > 10% bands Lactate >2.0 mmol/L (>4.0 is equivalent to septic shock) Please continue to document in your progress notes and discharge summary in order to capture severity of illness and risk of mortality. Include clinical findings that support your diagnosis. _ MTDD
--- NOTE | 2018-03-09 14:04 | CDI ---
Last Revision, August 2017 Documentation Clarification Form Date: 03/08/2018 12:00:00 AM From: Zaida Costa Admit Date: 03/03/2018 6:00:00 PM Patient Name: Anju Valenzuela Visit Number: [id number] Discharge Date: ATTENTION: The Clinical Documentation Specialists (CDI) and [facility] Coding Staff appreciate your assistance in clarifying documentation. Please respond to the clarification below the line at the bottom and electronically sign. The CDI & [facility] Coding staff will review the response and follow-up if needed. Please note: Queries are made part of the Legal Health Record. If you have any questions, please contact the author of this message via ITS. Dr. Alis Nunez History/Risk Factors: Chronic renal failure, CVA, Hypertension, Diabetes mellitus type 2, Chronic Atrial Fibrillation, Clinical Indicators: Present with altered mental status, ED she appears very dehydrated on exam. There was concern for UTI. Her diuretics and antihypertensive meds were held on admission. Vital signs 89/50 92 20 97.0. 03/04/18 assessment: Nonoliguric acute kidney injury mostly prerenal secondary to intravascular volume depletion from diuretics as well as hypotension. On admission: BUN 111, CR 4.0 03/08/18 Current BUN 56, CR 0.98 GFR 0.98 Patients Baseline: CR 0.90 Treatment: 1/2 Normal saline per orders Monitor Labs Encourage increased oral intake Avoid nephrotoxic agents In order to capture the severity of condition, please clarify if the condition signifies: CKD Stage 1 (GFR > 90) CKD Stage 2 (GFR 60-89) CKD Stage 3 (GFR 30-59) CKD Stage 4 (GFR 15-29) Other, please specify Unable to determine Please continue to document in your progress notes and discharge summary in order to capture severity of illness and risk of mortality. Include clinical findings that support your diagnosis. MTDD
--- NOTE | 2018-03-09 14:15 | PN ---
PROGRESS NOTE Patient is seen for followup for acute kidney injury and volume overload. Yesterday, she was started on Lasix. IV fluids were discontinued. This morning, patient's edema and shortness of breath is improved. PHYSICAL EXAMINATION: On examination, blood pressure is 152/69, heart rate 89 per minute. Patient is afebrile. EXAMINATION OF THE HEART: S1, S2. EXAMINATION OF THE LUNGS: Bilateral breath sounds are heard. Abdomen is soft, nontender. Examination of the lower extremities shows no evidence of edema. 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 LABS: Labs show sodium 148, potassium 4.0, chloride 108, CO2 is 33, BUN 52, serum creatinine 0.92. ASSESSMENT: 1. Acute kidney injury prerenal, currently significantly improved. Patient is off of IV fluids. 2. Volume overload with significant edema, currently improving. Patient is maintained on IV Lasix, which I will continue. 3. Hypernatremia, slightly improved. The patient was started on free water down the feeding tube. Serum sodium is 148 today. 4. Anemia. No evidence of active bleeding. 5. Urinary tract infection. Urine culture growing Escherichia coli. 6. Staphylococcus epidermidis bacteremia with the second blood culture on the same day negative. PLAN: Continue with the Lasix for now and continue to avoid IV fluids. Continue antibiotics. MMODL / IJN: [id number] /
--- NOTE | 2018-03-09 15:15 | PN ---
PROGRESS NOTE DATE OF SERVICE: 02/17/2018 REASON FOR FOLLOWUP: 1. E coli urinary tract infection. 2. Cellulitis along the PEG tube site. INTERVAL HISTORY: The patient is currently afebrile. The patient wants to go home. Denies having any chest pain, cough. No abdominal pain, no nausea, no vomiting, or any diarrhea. PHYSICAL EXAMINATION: Blood pressure 152/69 with a pulse of 89, temperature 97.9. She is 95% on 2 L nasal cannula. General description is an elderly female, lying in bed in no distress. RESPIRATORY SYSTEM: Unlabored breathing, clear to auscultation anteriorly. HEART: S1, S2. Regular rate and rhythm. ABDOMEN: Soft, no tenderness. LABS: Hemoglobin 10.9, white count of 9.3, BUN 52, creatinine 0.92. DIAGNOSTIC IMPRESSION/PLAN: 1. Patient with Escherichia coli urinary tract infection, currently on oral Cipro to continue for another 3 days to finish a course of therapy. 2. Patient with cellulitis along the PEG tube site. Nystatin powder twice a day. 3. Positive blood culture with Staph epi likely skin contamination for systemic antibiotic therapy for the same. MMODL / IJN: [id number] /
[2018-03-09] MEDS ORDERED: QUEtiapine 25 MG TAB PO PRN (16:06)
[2018-03-09 17:07] LABS: Glucose,Whole Blood 162 mg/dL (75-99)
--- NOTE | 2018-03-09 17:50 | P.PN ---
Subjective 67-year-old female was admitted for urinary tract infection with showed E. coli patient is quite a bit agitated apparently this agitation is her baseline patient appears to have moderate advanced dementia. Family is able to take care of her at home. When patient came in was hypovolemic given IV fluids patient is presently hypervolemic because of which she is receiving Lasix patient is presently on IV Lasix. Patient is presently quite a bit paranoid wanted to sit on the chair agitated. Discontinuing benzodiazepines patient will be started on Seroquel at her home dose for her agitation. is comparing of diffuse abdominal pain apparently this complaint has been there for a while. Objective - Vital Signs Vital signs: Vital Signs Temp 98.1 F 03/09/18 15:55 Pulse 86 03/09/18 15:55 Resp 16 03/09/18 15:55 BP 133/66 03/09/18 15:55 Pulse Ox 96 03/09/18 15:55 Intake & Output 03/08/18 03/09/18 03/09/18 18:59 06:59 18:59 Intake Total 240 1150 200 Output Total 4300 1300 800 Balance -4060 -150 -600 Weight 104 kg 98.5 kg Intake: Oral 240 200 Tube Feeding 1050 Other 100 Output: Urine 4300 1300 800 Uretheral ([place]) 1650 1300 800 Other: Voiding Method Indwelling Catheter Indwelling Catheter Indwelling Catheter - Exam PHYSICAL EXAMINATION: GENERAL: The patient is alert and agitated appears to be orientatedX2, not in any acute distress. Obese HEENT: Pupils are round and equally reacting to light. EOMI. No scleral icterus. No conjunctival pallor. Normocephalic, atraumatic. No pharyngeal erythema. No thyromegaly. CARDIOVASCULAR: S1 and S2 present. No murmurs, rubs, or gallops. PULMONARY: Chest is clear to auscultation, no wheezing or crackles. ABDOMEN: Soft, nontender, nondistended, normoactive bowel sounds. No palpable organomegaly. MUSCULOSKELETAL: No joint swelling or deformity. EXTREMITIES: No cyanosis, clubbing, or pedal edema. NEUROLOGICAL: Gross neurological examination did not reveal any focal deficits. SKIN: No rashes. - Labs CBC & Chem 7: 03/09/18 06:22 03/09/18 06:22 Labs: Abnormal Lab Results - Last 24 Hours (Table) 03/08/18 03/09/18 03/09/18 Range/Units 17:57 00:10 06:02 RBC (3.80-5.40) m/uL Hgb (11.4-16.0) gm/dL Hct (34.0-46.0) % MCV (80.0-100.0) fL MCHC (31.0-37.0) g/dL RDW (11.5-15.5) % Sodium (137-145) mmol/L Chloride (98-107) mmol/L Carbon Dioxide (22-30) mmol/L BUN (7-17) mg/dL Glucose (74-99) mg/dL POC Glucose (mg/dL) 166 H 221 H 207 H (75-99) mg/dL 03/09/18 03/09/18 03/09/18 Range/Units 06:22 06:22 11:44 RBC 3.32 L (3.80-5.40) m/uL Hgb 10.2 L (11.4-16.0) gm/dL Hct 33.4 L (34.0-46.0) % MCV 100.7 H (80.0-100.0) fL MCHC 30.7 L (31.0-37.0) g/dL RDW 16.2 H (11.5-15.5) % Sodium 148 H (137-145) mmol/L Chloride 108 H (98-107) mmol/L Carbon Dioxide 33 H (22-30) mmol/L BUN 52 H (7-17) mg/dL Glucose 210 H (74-99) mg/dL POC Glucose (mg/dL) 160 H (75-99) mg/dL 03/09/18 Range/Units 17:06 RBC (3.80-5.40) m/uL Hgb (11.4-16.0) gm/dL Hct (34.0-46.0) % MCV (80.0-100.0) fL MCHC (31.0-37.0) g/dL RDW (11.5-15.5) % Sodium (137-145) mmol/L Chloride (98-107) mmol/L Carbon Dioxide (22-30) mmol/L BUN (7-17) mg/dL Glucose (74-99) mg/dL POC Glucose (mg/dL) 162 H (75-99) mg/dL Assessment and Plan Plan: -Sepsis: Secondary to urinary tract infection sepsis improved patient is on ciprofloxacin -Volume overload secondary to IV fluids patient initially had renal failure received IV fluids after which patient had bit of pulmonary edema patient is receiving IV Lasix. at this point of time. This is being managed by nephrology. -Advanced dementia with the episodes of agitation etiology of dementia is unknown may be also was dementia. Benzodiazepines will be discussed uterine patient will be started on antipsychotics for agitation episodes and paranoia -Congestive heart failure mild chronic diastolic dysfunction with acute exacerbation. -Type 2 diabetes mellitus -Hypertension -Morbid obesity -Atrial fibrillation: Presently rate controlled -Hyperlipidemia
[2018-03-09] MEDS ORDERED: QUEtiapine 100 MG TAB PO PRN (18:22)
[2018-03-09] MEDS: ATORVASTATIN 20 MG TAB PEG/G-TUBE SCH (20:42)
[2018-03-09 22:41] VITALS: TEMP 98.6
[2018-03-10] MEDS: INSULIN ASPART 100 UNIT/ML 1 ML 10 ML VIAL SQ SCH ×3 (00:10→12:50)
[2018-03-10 00:28] LABS: Glucose,Whole Blood 171 mg/dL (75-99)
[2018-03-10 05:56] LABS: Glucose,Whole Blood 203 mg/dL (75-99)
[2018-03-10 05:59] VITALS: BP 129/62; RESP 20
[2018-03-10] MEDS: SYMBICORT 160-4.5 MCG INHALER INHALATION SCH (07:55)
[2018-03-10] MEDS: IPRATROPIUM-ALBUTEROL 3 ML NEB INHALATION SCH ×2 (07:55→11:14)
[2018-03-10] MEDS: HEPARIN SODIUM,PORCINE 5,000 UNIT/ML 1 ML VIAL SQ SCH (08:34)
[2018-03-10] MEDS: FUROSEMIDE 10 MG/ML 4 ML VIAL IV SCH (08:34)
[2018-03-10] MEDS: CARVEDILOL 3.125 MG TAB PEG/G-TUBE SCH (08:35)
[2018-03-10] MEDS: OXYBUTYNIN CHLORIDE 5 MG TAB PEG/G-TUBE SCH (08:35)
[2018-03-10] MEDS: ALLOPURINOL 100 MG TAB PEG/G-TUBE SCH (08:36)
[2018-03-10] MEDS: PANTOPRAZOLE 40 MG TABLET PO SCH (08:36)
[2018-03-10] MEDS: ASCORBIC ACID 500 MG TAB PEG/G-TUBE SCH (08:36)
[2018-03-10] MEDS: NYSTATIN 100,000 UNIT/GM POWD 15 GM TOPICAL SCH (08:36)
[2018-03-10] MEDS: CIPROFLOXACIN HCL 500 MG TAB PO SCH (08:36)
[2018-03-10] MEDS: CHOLECALCIFEROL 400 UNIT TAB PEG/G-TUBE SCH (08:36)
--- NOTE | 2018-03-10 10:59 | P.DS ---
Providers Date of admission: 03/03/18 18:00 Attending physician: Vishnu Malone Consults: 03/03/18 17:58 Consult Physician Routine Consulting Provider: Timmy Hsu Consult Reason/Comments: Concern for CHF, acute renal failure, uremic encephalopathy Do you want consulting provider notified?: Yes Consult Physician Routine Consulting Provider: Alis Nunez Consult Reason/Comments: Acute renal failure, uremic encephalopathy Do you want consulting provider notified?: Yes 03/04/18 10:54 Consult Physician Urgent Consulting Provider: Tisha Andrews Consult Reason/Comments: postive blood cultures Do you want consulting provider notified?: Yes Primary care physician: Vishnu Malone Hospital Course: 67-year-old female was admitted for urinary tract infection with showed E. coli patient is quite a bit agitated apparently this agitation is her baseline patient appears to have moderate advanced dementia. Family is able to take care of her at home. When patient came in was hypovolemic given IV fluids patient is presently hypervolemic because of which she is receiving Lasix patient is presently on IV Lasix. Patient is presently quite a bit paranoid wanted to sit on the chair agitated. Discontinuing benzodiazepines patient will be started on Seroquel at her home dose for her agitation. is comparing of diffuse abdominal pain apparently this complaint has been there for a while. 03/10/2018 Patient is still agitated much better than yesterday. We'll discontinue all the benzodiazepines patient will be discharged on her home dose of Seroquel which was discontinued here. Patient will be discharged on ciprofloxacin. Patient is declining to go to subacute rehabilitation will set up home care for her. Patient is quite weak. PHYSICAL EXAMINATION: GENERAL: The patient is alert and agitated appears to be orientatedX2, not in any acute distress. Obese HEENT: Pupils are round and equally reacting to light. EOMI. No scleral icterus. No conjunctival pallor. Normocephalic, atraumatic. No pharyngeal erythema. No thyromegaly. CARDIOVASCULAR: S1 and S2 present. No murmurs, rubs, or gallops. PULMONARY: Chest is clear to auscultation, no wheezing or crackles. ABDOMEN: Soft, nontender, nondistended, normoactive bowel sounds. No palpable organomegaly. MUSCULOSKELETAL: No joint swelling or deformity. EXTREMITIES: No cyanosis, clubbing, or pedal edema. NEUROLOGICAL: Gross neurological examination did not reveal any focal deficits. SKIN: No rashes. Assessment and Plan Plan: -Sepsis: Secondary to urinary tract infection sepsis improved patient is on ciprofloxacin -Volume overload secondary to IV fluids patient initially had renal failure received IV fluids after which patient had bit of pulmonary edema which improved with IV Lasix if cleared by nephrology patient will be discharged today -Advanced dementia with the episodes of agitation etiology of dementia is unknown may be also was dementia. -Congestive heart failure mild chronic diastolic dysfunction with acute exacerbation. Patient is presently and euvolemic -Type 2 diabetes mellitus patient only required about 9 units of sliding scale insulin here because of which am discharging her on 10 units of Lantus no pre- meal insulin. This can be titrated as an outpatient. And the losartan will be held because of her recent recovery of kidney function area can be started as an outpatient as tolerated. -Hypertension -Morbid obesity -Atrial fibrillation: Presently rate controlled -Hyperlipidemia Patient Condition at Discharge: Stable Plan - Discharge Summary Discharge Rx Participant: No New Discharge Prescriptions: New Ciprofloxacin HCl [Cipro] 500 mg PO BID #6 tab Continue Oxybutynin Chloride [Ditropan] 10 mg PEG/G-TUBE TID Ascorbic Acid [Vitamin C] 500 mg PEG/G-TUBE DAILY Ferrous Sulfate [Feosol] 325 mg PEG/G-TUBE DAILY Omeprazole [PriLOSEC] 20 mg PEG/G-TUBE DAILY traMADol HCL [Ultram] 50 mg PEG/G-TUBE Q6HR PRN PRN Reason: Pain QUEtiapine [SEROquel] 100 mg PEG/G-TUBE HS Simvastatin [Zocor] 40 mg PEG/G-TUBE HS Furosemide [Lasix] 40 mg PEG/G-TUBE BID Carvedilol [Coreg] 3.125 mg PEG/G-TUBE BID Allopurinol [Zyloprim] 100 mg PEG/G-TUBE DAILY Cholecalciferol [Vitamin D3] 400 unit PEG/G-TUBE DAILY Albuterol Nebulized [Ventolin Nebulized] 2.5 mg INHALATION RT-Q6H PRN PRN Reason: Shortness Of Breath Fluticasone/Salmeterol [Advair 500-50 Diskus] 1 puff INHALATION RT-BID Albuterol Inhaler [Ventolin Hfa Inhaler] 2 puff INHALATION RT-Q4H PRN PRN Reason: Shortness Of Breath Ondansetron [Zofran ODT] 4 mg PO Q8HR PRN PRN Reason: Nausea Changed Insulin Detemir [Levemir] 10 unit SQ DAILY #0 Discontinued clonazePAM [KlonoPIN] 0.5 mg PEG/G-TUBE TID Insulin Aspart [NovoLOG (formulary)] 10 unit SQ AC-TID Losartan Potassium [Cozaar] 25 mg PEG/G-TUBE DAILY Discharge Medication List Oxybutynin Chloride [Ditropan] 10 mg PEG/G-TUBE TID 03/23/14 [History] Ascorbic Acid [Vitamin C] 500 mg PEG/G-TUBE DAILY 09/06/14 [History] Ferrous Sulfate [Feosol] 325 mg PEG/G-TUBE DAILY 10/31/15 [History] Omeprazole [PriLOSEC] 20 mg PEG/G-TUBE DAILY 10/31/15 [History] QUEtiapine [SEROquel] 100 mg PEG/G-TUBE HS 02/21/17 [History] traMADol HCL [Ultram] 50 mg PEG/G-TUBE Q6HR PRN 02/21/17 [History] Allopurinol [Zyloprim] 100 mg PEG/G-TUBE DAILY 05/21/17 [History] Carvedilol [Coreg] 3.125 mg PEG/G-TUBE BID 05/21/17 [History] Furosemide [Lasix] 40 mg PEG/G-TUBE BID 05/21/17 [History] Simvastatin [Zocor] 40 mg PEG/G-TUBE HS 05/21/17 [History] Albuterol Nebulized [Ventolin Nebulized] 2.5 mg INHALATION RT-Q6H PRN 05/26/17 [ History] Cholecalciferol [Vitamin D3] 400 unit PEG/G-TUBE DAILY 05/26/17 [History] Fluticasone/Salmeterol [Advair 500-50 Diskus] 1 puff INHALATION RT-BID 05/26/17 [History] Albuterol Inhaler [Ventolin Hfa Inhaler] 2 puff INHALATION RT-Q4H PRN 03/03/18 [ History] Ondansetron [Zofran ODT] 4 mg PO Q8HR PRN 03/03/18 [History] Ciprofloxacin HCl [Cipro] 500 mg PO BID #6 tab 03/10/18 [Rx] Insulin Detemir [Levemir] 10 unit SQ DAILY #0 03/10/18 [Rx] Follow up Appointment(s)/Referral(s): Vishnu Malone MD [Primary Care Provider] - 3 Days Fred Wayne MD [STAFF PHYSICIAN] - 2 Weeks Discharge Disposition: HOME WITH HOME HEALTH SERVICES
--- NOTE | 2018-03-10 11:08 | PN ---
PROGRESS NOTE The patient is seen for followup of acute kidney injury, hypernatremia. She is currently doing well. The patient denies any significant complaints. Apparently, she is going home. She will be discharged today. Patient is maintained on free water down the feeding tube for hypernatremia. She had acute kidney injury, which has significantly improved with IV hydration. Currently, she is being diuresed for volume overload. PHYSICAL EXAMINATION: On examination, blood pressure is 129/62, heart rate 80 per minute. She is afebrile. EXAMINATION OF THE HEART: S1, S2. EXAMINATION OF THE LUNGS: Bilateral breath sounds are heard. Abdomen is soft, nontender. Examination lower extremities shows no significant edema. 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 LABS: Labs are not available from today. ASSESSMENT: 1. Acute kidney injury, prerenal, currently resolved. 2. Hypernatremia associated with free water deficit, maintained on free water down the feeding tube and slowly improving. 3. Volume overload maintained on IV Lasix. I will switch it to p.o. after today's morning dose. 4. Urinary tract infection with urine culture that grew Escherichia coli. The patient is maintained on antibiotics. PLAN: Switch to oral Lasix. Patient is stable for discharge from nephrology standpoint. MMODL / IJN: [id number] /
[2018-03-10 11:25] VITALS: PULSE 80
[2018-03-10 11:41] LABS: Calcium 9.2 mg/dL (8.4-10.2); Potassium 3.8 mmol/L (3.5-5.1)
[2018-03-10 12:26] LABS: Glucose,Whole Blood 156 mg/dL (75-99)
[2018-03-11] MEDS ORDERED: FUROSEMIDE 40 MG TAB PO SCH (09:00)
--- NOTE | 2018-03-14 12:43 | MISC ---
MISCELLANOUS REPORT Query on [facility]. Sepsis was ruled out. MMODL / IJN: [id number] /
== END 2018-03-10 14:48 | disposition home or self-care (01) | DRG 871 ==
LOC: EC 14:42 → 6SEL 18:00 → 5MS5E 03-04 13:13
PROVIDERS: ADMIT Family Medicine; ATTEND Family Medicine
DX: A41.9 Sepsis, unspecified organism (principal); G93.41 Metabolic encephalopathy; I50.23 Acute on chronic systolic (congestive) heart failure; E87.0 Hyperosmolality and hypernatremia; E87.1 Hypo-osmolality and hyponatremia; I13.0 Hypertensive heart and chronic kidney disease with heart failure and stage 1 through stage 4 chronic kidney disease, or unspecified chronic kidney disease; I42.9 Cardiomyopathy, unspecified; N17.9 Acute kidney failure, unspecified; N39.0 Urinary tract infection, site not specified; K94.22 Gastrostomy infection; L03.311 Cellulitis of abdominal wall; B96.20 Unspecified Escherichia coli [E. coli] as the cause of diseases classified elsewhere; D63.1 Anemia in chronic kidney disease; N18.9 Chronic kidney disease, unspecified; E11.22 Type 2 diabetes mellitus with diabetic chronic kidney disease; E66.01 Morbid (severe) obesity due to excess calories; E78.00 Pure hypercholesterolemia, unspecified; E78.5 Hyperlipidemia, unspecified; E83.39 Other disorders of phosphorus metabolism; I69.991 Dysphagia following unspecified cerebrovascular disease; T50.2X5A Adverse effect of carbonic-anhydrase inhibitors, benzothiadiazides and other diuretics, initial encounter; R13.10 Dysphagia, unspecified; E83.41 Hypermagnesemia; E86.0 Dehydration; E86.1 Hypovolemia; E87.5 Hyperkalemia; F03.90 Unspecified dementia, unspecified severity, without behavioral disturbance, psychotic disturbance, mood disturbance, and anxiety; F41.9 Anxiety disorder, unspecified; H91.90 Unspecified hearing loss, unspecified ear; I45.4 Nonspecific intraventricular block; I48.2 Chronic atrial fibrillation; J45.909 Unspecified asthma, uncomplicated; K59.00 Constipation, unspecified; R65.20 Severe sepsis without septic shock; J32.3 Chronic sphenoidal sinusitis; Z68.39 Body mass index [BMI] 39.0-39.9, adult; Z79.4 Long term (current) use of insulin; Z79.899 Other long term (current) drug therapy; Z88.6 Allergy status to analgesic agent; Z88.1 Allergy status to other antibiotic agents; Y92.009 Unspecified place in unspecified non-institutional (private) residence as the place of occurrence of the external cause
CPT/HCPCS: 36415; 70450; 71045; 71046; 74230; 80048; 80053; 80306; 81001; 82550; 82553; 82803; 83036; 83605; 83735; 83880; 84100; 84132; 84484; 85025; 85610; 85730; 87040; 87077; 87086; 87186; 93005; 93306; 94640; 94760; 96361; 96365; 96374; 96375; 99291

== ENCOUNTER → 2018-04-27 | Outpatient (CLI) | payer MEDICARE, OTHER ==
--- NOTE | 2018-04-27 14:31 | XR ---
EXAMINATION TYPE: XR chest 2V DATE OF EXAM: 04/27/2018 COMPARISON: Chest x-ray March 07, 2018. HISTORY: Shortness of breath and difficulty breathing for 2 days. TECHNIQUE: Frontal and lateral views of the chest are obtained. FINDINGS: Exam slightly suboptimal due to patient's large body habitus. There is persistent cardiomeg los with small bilateral pleural effusions seen best on lateral chest x-ray and mild to moderate cent ral vascular congestion. The osseous structures are intact. IMPRESSION: Suspect CHF exacerbation as there is cardiomegaly with small bilateral pleural effusions and mild to moderate central vascular congestion all redemonstrated. Correlate clinically.
[2018-04-27 14:48] LABS: Basophils % (A) 0 %; Eosinophils # (A) 0.1 k/uL (0-0.7); Eosinophils % (A) 1 %; HCT 34.9 % (34.0-46.0); HGB 11.3 gm/dL (11.4-16.0); Lymphocytes # (A) 0.8 k/uL (1.0-4.8); Lymphocytes % (A) 7 %; MCH 29.5 pg (25.0-35.0); MCHC 32.5 g/dL (31.0-37.0); Monocytes # (A) 0.4 k/uL (0-1.0); Monocytes % (A) 4 %; Neutrophils # (A) 10.3 k/uL (1.3-7.7); Neutrophils % (A) 87 %; Platelet Count 166 k/uL (150-450); RBC 3.84 m/uL (3.80-5.40); RDW 15.6 % (11.5-15.5); WBC 11.8 k/uL (3.8-10.6)
[2018-04-27 14:53] LABS: MCV 90.9 fL (80.0-100.0)
== END | disposition home or self-care (01) ==
LOC: LABWHC1 13:51
PROVIDERS: ATTEND Family Medicine
DX: I51.7 Cardiomegaly (principal); J90 Pleural effusion, not elsewhere classified; I50.9 Heart failure, unspecified; R06.02 Shortness of breath
CPT/HCPCS: 36415; 71046; 83880; 85025

== ENCOUNTER 2018-05-21 16:29 | Inpatient (IN) | payer MEDICARE, OTHER ==
[2018-05-21] MEDS ORDERED: SODIUM CHLORIDE 0.9% 1,000 ML IV STA (16:57)
[2018-05-21] MEDS ORDERED: IPRATROPIUM-ALBUTEROL 3 ML NEB INHALATION STA (16:57)
[2018-05-21] MEDS ORDERED: SODIUM CHLORIDE 0.9% 500 ML IV STA (16:57)
--- NOTE | 2018-05-21 17:06 | ED ---
SOB HPI - General Chief Complaint: Shortness of Breath Stated Complaint: Low blood pressure/sob Time Seen by Provider: 05/21/18 16:48 Source: patient, family, RN notes reviewed, old records reviewed Mode of arrival: wheelchair Limitations: no limitations - History of Present Illness Initial Comments: This is a 68-year-old female with a history of multiple medical problems including chronic atrial fibrillation and diabetes a feeding tube who appears his history was of breath going on for the past month but was seen in her doctor 's office they found to be hypotensive. She is weak and can't ambulate by herself this time. Apparently had a normal temperature this morning and said she was found have a 100+ oral temperature. No warm beverages no smoking. Otherwise she's had no fevers chills sweats cough or phlegm production MD Complaint: shortness of breath - Related Data Home Medications Medication Instructions Recorded Confirmed Oxybutynin Chloride [Ditropan] 10 mg PEG/G-TUBE TID 03/23/14 05/21/18 Ferrous Sulfate [Feosol] 325 mg PEG/G-TUBE DAILY 10/31/15 05/21/18 Omeprazole [PriLOSEC] 20 mg PEG/G-TUBE DAILY 10/31/15 05/21/18 traMADol HCL [Ultram] 50 mg PEG/G-TUBE Q6HR PRN 02/21/17 05/21/18 Allopurinol [Zyloprim] 100 mg PEG/G-TUBE DAILY 05/21/17 05/21/18 Carvedilol [Coreg] 3.125 mg PEG/G-TUBE BID 05/21/17 05/21/18 Furosemide [Lasix] 40 mg PEG/G-TUBE BID 05/21/17 05/21/18 Simvastatin [Zocor] 40 mg PEG/G-TUBE HS 05/21/17 05/21/18 Albuterol Nebulized [Ventolin 2.5 mg INHALATION RT-Q6H PRN 05/26/17 05/21/18 Nebulized] Cholecalciferol [Vitamin D3] 400 unit PEG/G-TUBE DAILY 05/26/17 05/21/18 Fluticasone/Salmeterol [Advair 1 puff INHALATION RT-BID 05/26/17 05/21/18 500-50 Diskus] Albuterol Inhaler [Ventolin Hfa 2 puff INHALATION RT-Q4H PRN 03/03/18 05/21/18 Inhaler] Ondansetron [Zofran ODT] 4 mg PO Q6H PRN 03/03/18 05/21/18 Insulin Aspart [NovoLOG Flexpen] 10 units SQ AC-TID 05/21/18 05/21/18 Insulin Detemir [Levemir] 30 unit SQ DAILY 05/21/18 05/21/18 Jevity 1 Gautam 3,000 ml PEG/G-TUBE DAILY 05/21/18 05/21/18 QUEtiapine FUMARATE [SEROquel] 300 mg PEG/G-TUBE HS 05/21/18 05/21/18 Sacubitril/Valsartan [Entresto 49 1 tab PEG/G-TUBE BID 05/21/18 05/21/18 mg-51 mg Tablet] clonazePAM [KlonoPIN] 0.5 mg PEG/G-TUBE TID PRN 05/21/18 05/21/18 Allergies Allergy/AdvReac Type Severity Reaction Status Date / Time aloe AdvReac Mild Itching Verified 05/21/18 17:17 aspirin AdvReac Kidney Verified 05/21/18 17:17 issues cefepime AdvReac Hallucinati Verified 05/21/18 17:17 ons Review of Systems ROS Statement: Those systems with pertinent positive or pertinent negative responses have been documented in the HPI. ROS Other: All systems not noted in ROS Statement are negative. Past Medical History Past Medical History: Atrial Fibrillation, Asthma, CVA/TIA, Diabetes Mellitus, Hearing Disorder / Deafness, Hyperlipidemia, Hypertension, Renal Disease, Skin Disorder Additional Past Medical History / Comment(s): hypercholesterol, basestem stroke 2016, difficulty swallowing, pt has peg tube History of Any Multi-Drug Resistant Organisms: None Reported Past Surgical History: No Surgical Hx Reported Additional Past Surgical History / Comment(s): PEG tube, skin graft on left thigh 2016 at [facility] Past Anesthesia/Blood Transfusion Reactions: No Reported Reaction Past Psychological History: Anxiety Smoking Status: Never smoker Past Alcohol Use History: None Reported Past Drug Use History: None Reported - Past Family History Mother Family Medical History: No Reported History General Exam - General Exam Comments Initial Comments: Is a well-developed obese female who is awake alert oriented 3 Limitations: no limitations General appearance: alert, in no apparent distress Head exam: Present: atraumatic, normocephalic, normal inspection Eye exam: Present: normal appearance, PERRL, EOMI. Absent: scleral icterus, conjunctival injection, periorbital swelling ENT exam: Present: mucous membranes dry Neck exam: Present: normal inspection. Absent: tenderness, meningismus, lymphadenopathy Respiratory exam: Present: normal lung sounds bilaterally. Absent: respiratory distress, wheezes, rales, rhonchi, stridor Cardiovascular Exam: Present: regular rate, normal rhythm, normal heart sounds. Absent: systolic murmur, diastolic murmur, rubs, gallop, clicks GI/Abdominal exam: Present: soft, normal bowel sounds, other (Obese abdomen with a PEG tube in place nontender to palpation). Absent: distended, tenderness , guarding, rebound, rigid Rectal exam: Present: deferred Extremities exam: Present: normal inspection, full ROM, normal capillary refill. Absent: tenderness, pedal edema, joint swelling, calf tenderness Back exam: Present: normal inspection Neurological exam: Present: alert, oriented X3, CN II-XII intact Psychiatric exam: Present: normal affect, normal mood Skin exam: Present: warm, dry, intact, normal color. Absent: rash Course Vital Signs 05/21/18 05/21/18 05/21/18 16:35 17:04 17:14 Temperature 97.7 F Pulse Rate 92 89 91 Respiratory 18 18 18 Rate Blood Pressure 87/51 O2 Sat by Pulse 92 L Oximetry 05/21/18 05/21/18 05/21/18 18:00 18:59 19:23 Temperature Pulse Rate 84 95 87 Respiratory 18 20 18 Rate Blood Pressure 124/91 123/59 141/66 O2 Sat by Pulse 95 95 96 Oximetry Medical Decision Making - Medical Decision Making I did discuss findings with patient family and Dr. Malone. Patient does have hyponatremia evidence a febrile illness of 2 this point unknown etiology lactic acid was within normal limits. There is elevation of her BNP. Patient will be admitted place an IV antibiotics patient does have renal insufficiency additionally. - Lab Data Result diagrams: 05/21/18 16:57 05/21/18 16:57 Lab Results 05/21/18 05/21/18 05/21/18 Range/Units 16:57 16:57 16:57 WBC 24.4 H (3.8-10.6) k/uL RBC 3.81 (3.80-5.40) m/uL Hgb 11.6 (11.4-16.0) gm/dL Hct 35.6 (34.0-46.0) % MCV 93.5 (80.0-100.0) fL MCH 30.4 (25.0-35.0) pg MCHC 32.5 (31.0-37.0) g/dL RDW 16.6 H (11.5-15.5) % Plt Count 213 (150-450) k/uL Neutrophils % 92 % Lymphocytes % 3 % Monocytes % 3 % Eosinophils % 1 % Basophils % 0 % Neutrophils # 22.5 H (1.3-7.7) k/uL Lymphocytes # 0.8 L (1.0-4.8) k/uL Monocytes # 0.8 (0-1.0) k/uL Eosinophils # 0.2 (0-0.7) k/uL Basophils # 0.0 (0-0.2) k/uL Anisocytosis Slight PT (9.0-12.0) sec INR (<1.2) APTT (22.0-30.0) sec D-Dimer (<0.60) mg/L FEU Sodium 122 L (137-145) mmol/L Potassium 5.8 H (3.5-5.1) mmol/L Chloride 80 L (98-107) mmol/L Carbon Dioxide 26 (22-30) mmol/L Anion Gap 16 mmol/L BUN 61 H (7-17) mg/dL Creatinine 1.64 H (0.52-1.04) mg/dL Est GFR (CKD-EPI)AfAm 36 (>60 ml/min/1.73 sqM) Est GFR (CKD-EPI)NonAf 32 (>60 ml/min/1.73 sqM) Glucose 188 H (74-99) mg/dL Plasma Lactic Acid Yousif (0.7-2.0) mmol/L Calcium 9.0 (8.4-10.2) mg/dL Magnesium 2.4 H (1.6-2.3) mg/dL Total Bilirubin 1.0 (0.2-1.3) mg/dL AST 19 (14-36) U/L ALT 25 (9-52) U/L Alkaline Phosphatase 110 (38-126) U/L Total Creatine Kinase 21 L (30-135) U/L CK-MB (CK-2) 0.8 (0.0-2.4) ng/mL CK-MB (CK-2) Rel Index 3.8 Troponin I <0.012 (0.000-0.034) ng/mL NT-Pro-B Natriuret Pep pg/mL Total Protein 7.4 (6.3-8.2) g/dL Albumin 3.6 (3.5-5.0) g/dL 05/21/18 05/21/18 05/21/18 Range/Units 16:57 16:57 17:00 WBC (3.8-10.6) k/uL RBC (3.80-5.40) m/uL Hgb (11.4-16.0) gm/dL Hct (34.0-46.0) % MCV (80.0-100.0) fL MCH (25.0-35.0) pg MCHC (31.0-37.0) g/dL RDW (11.5-15.5) % Plt Count (150-450) k/uL Neutrophils % % Lymphocytes % % Monocytes % % Eosinophils % % Basophils % % Neutrophils # (1.3-7.7) k/uL Lymphocytes # (1.0-4.8) k/uL Monocytes # (0-1.0) k/uL Eosinophils # (0-0.7) k/uL Basophils # (0-0.2) k/uL Anisocytosis PT 10.4 (9.0-12.0) sec INR 1.1 (<1.2) APTT 28.7 (22.0-30.0) sec D-Dimer 1.56 H (<0.60) mg/L FEU Sodium (137-145) mmol/L Potassium (3.5-5.1) mmol/L Chloride (98-107) mmol/L Carbon Dioxide (22-30) mmol/L Anion Gap mmol/L BUN (7-17) mg/dL Creatinine (0.52-1.04) mg/dL Est GFR (CKD-EPI)AfAm (>60 ml/min/1.73 sqM) Est GFR (CKD-EPI)NonAf (>60 ml/min/1.73 sqM) Glucose (74-99) mg/dL Plasma Lactic Acid Yousif 1.7 (0.7-2.0) mmol/L Calcium (8.4-10.2) mg/dL Magnesium (1.6-2.3) mg/dL Total Bilirubin (0.2-1.3) mg/dL AST (14-36) U/L ALT (9-52) U/L Alkaline Phosphatase (38-126) U/L Total Creatine Kinase (30-135) U/L CK-MB (CK-2) (0.0-2.4) ng/mL CK-MB (CK-2) Rel Index Troponin I (0.000-0.034) ng/mL NT-Pro-B Natriuret Pep 4720 pg/mL Total Protein (6.3-8.2) g/dL Albumin (3.5-5.0) g/dL - EKG Data -: EKG Interpreted by Me (Atrial fibrillation with a rate of 95 QRS 118 daily since QTC 390/500) - Radiology Data Radiology results: report reviewed (I did review the imaging and report no acute findings.), image reviewed Disposition Clinical Impression: COPD (chronic obstructive pulmonary disease), Hyponatremia syndrome, Renal failure syndrome Disposition: ADMITTED IP TO THIS [facility] Condition: Stable Referrals: Vishnu Malone MD [Primary Care Provider] - 1-2 days
[2018-05-21 17:14] LABS: Anisocytosis Slight; Basophils % (A) 0 %; Eosinophils # (A) 0.2 k/uL (0-0.7); Eosinophils % (A) 1 %; HCT 35.6 % (34.0-46.0); HGB 11.6 gm/dL (11.4-16.0); Lymphocytes # (A) 0.8 k/uL (1.0-4.8); Lymphocytes % (A) 3 %; MCH 30.4 pg (25.0-35.0); MCHC 32.5 g/dL (31.0-37.0); MCV 93.5 fL (80.0-100.0); Monocytes # (A) 0.8 k/uL (0-1.0); Monocytes % (A) 3 %; Neutrophils # (A) 22.5 k/uL (1.3-7.7); Neutrophils % (A) 92 %; Platelet Count 213 k/uL (150-450); RBC 3.81 m/uL (3.80-5.40); RDW 16.6 % (11.5-15.5); WBC 24.4 k/uL (3.8-10.6)
[2018-05-21 17:23] LABS: Albumin 3.6 g/dL (3.5-5.0); Magnesium 2.4 mg/dL (1.6-2.3); Potassium 5.8 mmol/L (3.5-5.1); Total Protein 7.4 g/dL (6.3-8.2)
[2018-05-21 17:40] LABS: Creatine Kinase 21 U/L (30-135)
[2018-05-21 17:44] LABS: INR 1.1 (<1.2); Partial Thromboplastin Time 28.7 sec (22.0-30.0); Prothrombin Time 10.4 sec (9.0-12.0)
[2018-05-21 17:47] LABS: D-Dimer 1.56 mg/L FEU (<0.60)
[2018-05-21 17:52] LABS: Creatine Kinase MB 0.8 ng/mL (0.0-2.4); Troponin I <0.012 ng/mL (0.000-0.034)
--- NOTE | 2018-05-21 18:09 | XR ---
EXAMINATION TYPE: XR chest 2V DATE OF EXAM: 05/21/2018 COMPARISON: NONE HISTORY: Difficulty breathing TECHNIQUE: Frontal and lateral views of the chest are obtained. FINDINGS: Heart is enlarged. There is coarsening of pulmonary interstitial markings. There is slight blunting of costophrenic angles. IMPRESSION: Small pleural effusions and pulmonary interstitial edema is slightly worse than old exam and could relate to heart failure.
[2018-05-21] MEDS ORDERED: PIPERACILLIN-TAZOBACTAM 3.375 GM in DEXTROSE/WATER 1 50ML.BAG IVPB STA (18:58)
[2018-05-21] MEDS ORDERED: NALOXONE 0.4 MG/ML 1 ML VIAL IV PRN (19:27)
[2018-05-21] MEDS ORDERED: ONDANSETRON ODT 4 MG TAB PO PRN (19:29)
[2018-05-21] MEDS ORDERED: traMADol 50 MG TAB PEG/G-TUBE PRN (19:29)
[2018-05-21] MEDS: SYMBICORT 160-4.5 MCG INHALER INHALATION SCH (20:46)
[2018-05-21] MEDS: SODIUM CHLORIDE 0.9% 1,000 ML IV SCH (21:36)
[2018-05-21] MEDS: ATORVASTATIN 20 MG TAB PEG/G-TUBE SCH (21:38)
[2018-05-21] MEDS: QUEtiapine 100 MG TAB PEG/G-TUBE SCH (21:39)
[2018-05-21] MEDS: SACUBITRIL/VALSARTAN 49 MG-51 MG TABLET PO SCH (21:40)
[2018-05-21] MEDS: OXYBUTYNIN CHLORIDE 5 MG TAB PEG/G-TUBE SCH (21:40)
[2018-05-21 21:45] LABS: Glucose,Whole Blood 190 mg/dL (75-99)
[2018-05-21] MEDS: FUROSEMIDE 40 MG TAB PEG/G-TUBE SCH (21:50)
[2018-05-21] MEDS: clonazePAM 0.5 MG TAB PEG/G-TUBE PRN (21:50)
[2018-05-21] MEDS: INSULIN ASPART 100 UNIT/ML 1 ML 10 ML VIAL SQ SCH (22:02)
[2018-05-21 23:16] LABS: Creatine Kinase <20 U/L (30-135)
[2018-05-21 23:29] LABS: Creatine Kinase MB 0.9 ng/mL (0.0-2.4); Troponin I <0.012 ng/mL (0.000-0.034)
[2018-05-22] MEDS: LACTATED RINGERS 1,000 ML IV SCH ×2 (00:42→15:28)
[2018-05-22] MEDS ORDERED: LACTATED RINGERS 1,000 ML IV SCH (00:45)
[2018-05-22] MEDS: PIPERACILLIN-TAZOBACTAM 3.375 GM in DEXTROSE/WATER 1 50ML.BAG IVPB SCH ×3 (03:37→18:11)
[2018-05-22 06:20] LABS: Creatine Kinase 22 U/L (30-135)
[2018-05-22] MEDS: SODIUM CHLORIDE 0.9% 1,000 ML IV SCH ×2 (06:27→13:54)
[2018-05-22 06:31] LABS: Creatine Kinase MB 0.9 ng/mL (0.0-2.4); Troponin I <0.012 ng/mL (0.000-0.034)
[2018-05-22 06:34] LABS: Glucose,Whole Blood 154 mg/dL (75-99)
[2018-05-22] MEDS: INSULIN ASPART 100 UNIT/ML 1 ML 10 ML VIAL SQ SCH ×7 (07:02→22:13)
[2018-05-22] MEDS: CARVEDILOL 3.125 MG TAB PEG/G-TUBE SCH ×2 (07:44→18:09)
[2018-05-22] MEDS: SYMBICORT 160-4.5 MCG INHALER INHALATION SCH ×2 (07:57→20:55)
[2018-05-22 08:23] LABS: Calcium 8.5 mg/dL (8.4-10.2); Potassium 5.4 mmol/L (3.5-5.1); Total Bilirubin 1.1 mg/dL (0.2-1.3); Total Protein 6.4 g/dL (6.3-8.2)
[2018-05-22] MEDS ORDERED: INSULIN DETEMIR 100 UNIT/ML 10 ML VIAL SQ SCH (09:00)
[2018-05-22] MEDS ORDERED: ENTERAL FORMULA PEG/G-TUBE SCH (09:00)
[2018-05-22] MEDS ORDERED: PANTOPRAZOLE SODIUM 40 MG GRANULE PKT PEG/G-TUBE SCH (09:00)
[2018-05-22] MEDS: ALBUTEROL NEBULIZED 2.5 MG/3 ML INHALATION PRN ×2 (11:36→20:56)
--- NOTE | 2018-05-22 11:45 | NM ---
EXAMINATION TYPE: NM pul perfusion DATE OF EXAM: 05/22/2018 COMPARISON: Prior nuclear medicine VQ scan September 07, 2014. Prior chest x-ray from yesterday. HISTORY: Dyspnea, elevated d-dimer Following administration of 5.41 mCi Tc 99m MAA. 2 perfusion images obtained post injection. FINDINGS: Exam is nondiagnostic as patient could not complete entire ventilation and perfusion sequence after injection of first radiotracer. IMPRESSION: As above
[2018-05-22] MEDS: CHOLECALCIFEROL 400 UNIT TAB PEG/G-TUBE SCH (11:59)
[2018-05-22] MEDS: FERROUS SULFATE 325 MG TAB PO SCH (11:59)
[2018-05-22] MEDS: FUROSEMIDE 40 MG TAB PEG/G-TUBE SCH (11:59)
[2018-05-22 12:05] LABS: Glucose,Whole Blood 146 mg/dL (75-99)
--- NOTE | 2018-05-22 13:23 | P.CONS ---
History of Present Illness - Reason for Consult Consult date: 05/22/18 Elevated WBC - History of Present Illness This is a 68-year-old female patient known to ID service as she was seen by us in September 2015. Also patient history is obtained from her boyfriend and primary caregiver, Mr. Rafael Caraballo. Yesterday patient had a low blood pressure of 79/59 at home, he took patient to the doctor's office and her temperature was 100 and she seemed to be pale and his had trouble breathing for the past month. He then brought her into [facility] for evaluation. Patient is normally wheelchair and bedbound and total care for caregivers. Boyfriend denies having any falls at home. She does have an occasional cough but this is chronic and no change. There's been no nausea, vomiting or diarrhea. Upon presentation, patient had blood pressure of 87/51 sodium was 122, potassium 5.8, chloride 80, BUN 21 creatinine 1.64. Troponins of been negative on 2 draws. Lactic acid was 1.7, proBNP 4720. Blood culture status received. D-dimer was elevated at 1.56 and V/Q scan was nondiagnostic as patient could not complete entire ventilation perfusion sequence after injection of radiotracer. Patient is seen in her room and selective care, she is quite lethargic but her caregiver states this is her baseline. He states he usually gets her up in the morning and she is up for about half hour to 45 minutes and then she falls asleep again. Apparently patient did not sleep at all on Monday night. Patient denies having any chest pain or abdominal pain. She does complain of mild dysuria. Urinalysis was not obtained. Patient is currently on Zosyn. Patient has a chronic PEG tube but also takes nourishment orally. Speech therapy to evaluate oral intake. Review of Systems All systems: negative Constitutional: Reports fatigue, Denies chills, Denies fever Eyes: denies blurred vision, denies pain Ears, nose, mouth and throat: Denies dental pain, Denies headache, Denies mouth pain, Denies sore throat, Denies vertigo Cardiovascular: Denies chest pain, Denies dyspnea on exertion, Denies leg edema , Denies lightheadedness, Denies shortness of breath, Denies syncope Respiratory: Reports cough, Denies cough with sputum, Denies dyspnea, Denies excessive sputum, Denies hemoptysis, Denies wheezing Gastrointestinal: Denies abdominal pain, Denies diarrhea, Denies nausea, Denies vomiting Genitourinary: Reports dysuria, Denies hematuria Musculoskeletal: Denies frequent falls, Denies gait dysfunction, Denies myalgias Integumentary: Denies pruritus, Denies rash Neurological: Denies numbness, Denies weakness Psychiatric: Denies anxiety, Denies depression Endocrine: Denies fatigue, Denies weight change Past Medical History Past Medical History: Atrial Fibrillation, Asthma, CVA/TIA, Diabetes Mellitus, Hearing Disorder / Deafness, Hyperlipidemia, Hypertension, Renal Disease, Skin Disorder Additional Past Medical History / Comment(s): hypercholesterol, basestem stroke 2016, difficulty swallowing, pt has peg tube History of Any Multi-Drug Resistant Organisms: None Reported Past Surgical History: No Surgical Hx Reported Additional Past Surgical History / Comment(s): PEG tube, skin graft on left thigh 2016 at [facility] Past Anesthesia/Blood Transfusion Reactions: No Reported Reaction Past Psychological History: Anxiety Smoking Status: Never smoker Past Alcohol Use History: None Reported Additional Past Alcohol Use History / Comment(s): Patient lives at home with her boyfriend/caregiver and daughter Past Drug Use History: None Reported - Past Family History Mother Family Medical History: No Reported History Medications and Allergies Home Medications Medication Instructions Recorded Confirmed Type Oxybutynin Chloride [Ditropan] 10 mg PEG/G-TUBE TID 03/23/14 05/21/18 History Ferrous Sulfate [Feosol] 325 mg PEG/G-TUBE DAILY 10/31/15 05/21/18 History Omeprazole [PriLOSEC] 20 mg PEG/G-TUBE DAILY 10/31/15 05/21/18 History traMADol HCL [Ultram] 50 mg PEG/G-TUBE Q6HR PRN 02/21/17 05/21/18 History Allopurinol [Zyloprim] 100 mg PEG/G-TUBE DAILY 05/21/17 05/21/18 History Carvedilol [Coreg] 3.125 mg PEG/G-TUBE BID 05/21/17 05/21/18 History Furosemide [Lasix] 40 mg PEG/G-TUBE BID 05/21/17 05/21/18 History Simvastatin [Zocor] 40 mg PEG/G-TUBE HS 05/21/17 05/21/18 History Albuterol Nebulized [Ventolin 2.5 mg INHALATION RT-Q6H PRN 05/26/17 05/21/18 History Nebulized] Cholecalciferol [Vitamin D3] 400 unit PEG/G-TUBE DAILY 05/26/17 05/21/18 History Fluticasone/Salmeterol [Advair 1 puff INHALATION RT-BID 05/26/17 05/21/18 History 500-50 Diskus] Albuterol Inhaler [Ventolin Hfa 2 puff INHALATION RT-Q4H PRN 03/03/18 05/21/18 History Inhaler] Ondansetron [Zofran ODT] 4 mg PO Q6H PRN 03/03/18 05/21/18 History Insulin Aspart [NovoLOG Flexpen] 10 units SQ AC-TID 05/21/18 05/21/18 History Insulin Detemir [Levemir] 30 unit SQ DAILY 05/21/18 05/21/18 History Jevity 1 Gautam 3,000 ml PEG/G-TUBE DAILY 05/21/18 05/21/18 History QUEtiapine FUMARATE [SEROquel] 300 mg PEG/G-TUBE HS 05/21/18 05/21/18 History Sacubitril/Valsartan [Entresto 49 1 tab PEG/G-TUBE BID 05/21/18 05/21/18 History mg-51 mg Tablet] clonazePAM [KlonoPIN] 0.5 mg PEG/G-TUBE TID PRN 05/21/18 05/21/18 History Allergies Allergy/AdvReac Type Severity Reaction Status Date / Time aloe AdvReac Mild Itching Verified 05/21/18 17:17 aspirin AdvReac Kidney Verified 05/21/18 17:17 issues cefepime AdvReac Hallucinati Verified 05/21/18 17:17 ons Physical Exam Vitals: Vital Signs Temp Pulse Pulse Resp BP BP Pulse Ox 05/22/18 04:00 97.5 F L 74 18 102/66 96 05/22/18 00:00 97.5 F L 67 18 88/52 96 05/21/18 22:00 97.8 F 92 18 132/72 97 05/21/18 20:43 97.5 F L 67 18 88/52 96 05/21/18 19:23 87 18 141/66 96 05/21/18 18:59 95 20 123/59 95 05/21/18 18:00 84 18 124/91 95 05/21/18 17:14 91 18 05/21/18 17:04 89 18 05/21/18 16:35 97.7 F 92 18 87/51 92 L Intake and Output 05/21/18 05/22/18 05/22/18 22:59 06:59 14:59 Intake Total 900 Balance 900 Intake: IV 900 Lactated Ringers 1,000 ml 400 @ 80 mls/hr IV .[id number] BONNY Rx#:[id number] Lactated Ringers 1,000 ml 500 @ 999 mls/hr IV .Q1H1M BONNY Rx#:[id number] Other: Voiding Method Diaper # Voids 1 Weight 93 kg 107.5 kg Gen: This is a 68-year-old morbidly obese female with a BMI of 43. Patient is in bed and appears to be in no acute distress. HEENT: Head is atraumatic, normocephalic. Pupils equal, round. Sclerae is anicteric. Conjunctiva pink. Mucous membranes of the mouth are moist. Patient is edentulous. NECK: Supple. No JVD. No lymphadenopathy. No thyromegaly. LUNGS: Diminished in bilateral bases. No wheezes or rhonchi. No intercostal retractions. HEART: Irregular rate and rhythm. No murmur. ABDOMEN: Morbidly obese. Soft. Bowel sounds are present. No masses. No tenderness. EXTREMITIES: No pedal edema. No calf tenderness. NEUROLOGICAL: Patient is awake, alert and oriented x2. Cranial nerves 2 through 12 are grossly intact. Results Results: Laboratory Results WBC 24.4 k/uL (3.8-10.6) H 05/21/18 16:57 RBC 3.81 m/uL (3.80-5.40) 05/21/18 16:57 Hgb 11.6 gm/dL (11.4-16.0) 05/21/18 16:57 Hct 35.6 % (34.0-46.0) 05/21/18 16:57 MCV 93.5 fL (80.0-100.0) 05/21/18 16:57 MCH 30.4 pg (25.0-35.0) 05/21/18 16:57 MCHC 32.5 g/dL (31.0-37.0) 05/21/18 16:57 RDW 16.6 % (11.5-15.5) H 05/21/18 16:57 Plt Count 213 k/uL (150-450) 05/21/18 16:57 Neutrophils % 92 % 05/21/18 16:57 Lymphocytes % 3 % 05/21/18 16:57 Monocytes % 3 % 05/21/18 16:57 Eosinophils % 1 % 05/21/18 16:57 Basophils % 0 % 05/21/18 16:57 Neutrophils # 22.5 k/uL (1.3-7.7) H 05/21/18 16:57 Lymphocytes # 0.8 k/uL (1.0-4.8) L 05/21/18 16:57 Monocytes # 0.8 k/uL (0-1.0) 05/21/18 16:57 Eosinophils # 0.2 k/uL (0-0.7) 05/21/18 16:57 Basophils # 0.0 k/uL (0-0.2) 05/21/18 16:57 Anisocytosis Slight 05/21/18 16:57 PT 10.4 sec (9.0-12.0) 05/21/18 16:57 INR 1.1 (<1.2) 05/21/18 16:57 APTT 28.7 sec (22.0-30.0) 05/21/18 16:57 D-Dimer 1.56 mg/L FEU (<0.60) H 05/21/18 16:57 Sodium 123 mmol/L (137-145) L 05/22/18 05:18 Potassium 5.4 mmol/L (3.5-5.1) H 05/22/18 05:18 Chloride 84 mmol/L (98-107) L 05/22/18 05:18 Carbon Dioxide 24 mmol/L (22-30) 05/22/18 05:18 Anion Gap 15 mmol/L 05/22/18 05:18 BUN 62 mg/dL (7-17) H 05/22/18 05:18 Creatinine 1.78 mg/dL (0.52-1.04) H 05/22/18 05:18 Est GFR (CKD-EPI)AfAm 33 (>60 ml/min/1.73 sqM) 05/22/18 05:18 Est GFR (CKD-EPI)NonAf 29 (>60 ml/min/1.73 sqM) 05/22/18 05:18 Glucose 135 mg/dL (74-99) H 05/22/18 05:18 POC Glucose (mg/dL) 146 mg/dL (75-99) H 05/22/18 11:45 POC Glu Ultrasound Technologist ID Queta Elliott 05/22/18 11:45 Plasma Lactic Acid Yousif 1.7 mmol/L (0.7-2.0) 05/21/18 17:00 Calcium 8.5 mg/dL (8.4-10.2) 05/22/18 05:18 Magnesium 2.4 mg/dL (1.6-2.3) H 05/21/18 16:57 Total Bilirubin 1.1 mg/dL (0.2-1.3) 05/22/18 05:18 AST 21 U/L (14-36) 05/22/18 05:18 ALT 23 U/L (9-52) 05/22/18 05:18 Alkaline Phosphatase 99 U/L (38-126) 05/22/18 05:18 Total Creatine Kinase 22 U/L (30-135) L 05/22/18 05:18 CK-MB (CK-2) 0.9 ng/mL (0.0-2.4) 05/22/18 05:18 CK-MB (CK-2) Rel Index 4.1 05/22/18 05:18 Troponin I <0.012 ng/mL (0.000-0.034) 05/22/18 05:18 NT-Pro-B Natriuret Pep 4720 pg/mL 05/21/18 16:57 Total Protein 6.4 g/dL (6.3-8.2) 05/22/18 05:18 Albumin 3.0 g/dL (3.5-5.0) L 05/22/18 05:18 CBC & Chem 7: 05/21/18 16:57 05/22/18 05:18 Labs: Abnormal Lab Results - Last 24 Hours (Table) 05/21/18 05/21/1805/21/18 Range/Units 16:57 16:57 16:57 WBC 24.4 H (3.8-10.6) k/uL RDW 16.6 H (11.5-15.5) % Neutrophils # 22.5 H (1.3-7.7) k/uL Lymphocytes # 0.8 L (1.0-4.8) k/uL D-Dimer (<0.60) mg/L FEU Sodium 122 L (137-145) mmol/L Potassium 5.8 H (3.5-5.1) mmol/L Chloride 80 L (98-107) mmol/L BUN 61 H (7-17) mg/dL Creatinine 1.64 H (0.52-1.04) mg/dL Glucose 188 H (74-99) mg/dL POC Glucose (mg/dL) (75-99) mg/dL Magnesium 2.4 H (1.6-2.3) mg/dL Total Creatine Kinase 21 L (30-135) U/L Albumin (3.5-5.0) g/dL 05/21/18 05/21/18 05/21/18 Range/Units 16:57 21:34 22:44 WBC (3.8-10.6) k/uL RDW (11.5-15.5) % Neutrophils # (1.3-7.7) k/uL Lymphocytes # (1.0-4.8) k/uL D-Dimer 1.56 H (<0.60) mg/L FEU Sodium (137-145) mmol/L Potassium (3.5-5.1) mmol/L Chloride (98-107) mmol/L BUN (7-17) mg/dL Creatinine (0.52-1.04) mg/dL Glucose (74-99) mg/dL POC Glucose (mg/dL) 190 H (75-99) mg/dL Magnesium (1.6-2.3) mg/dL Total Creatine Kinase <20 L (30-135) U/L Albumin (3.5-5.0) g/dL 05/22/18 05/22/18 05/22/18 Range/Units 05:18 05:18 06:33 WBC (3.8-10.6) k/uL RDW (11.5-15.5) % Neutrophils # (1.3-7.7) k/uL Lymphocytes # (1.0-4.8) k/uL D-Dimer (<0.60) mg/L FEU Sodium 123 L (137-145) mmol/L Potassium 5.4 H (3.5-5.1) mmol/L Chloride 84 L (98-107) mmol/L BUN 62 H (7-17) mg/dL Creatinine 1.78 H (0.52-1.04) mg/dL Glucose 135 H (74-99) mg/dL POC Glucose (mg/dL) 154 H (75-99) mg/dL Magnesium (1.6-2.3) mg/dL Total Creatine Kinase 22 L (30-135) U/L Albumin 3.0 L (3.5-5.0) g/dL Assessment and Plan Plan: This is a 68-year-old female who presents to the hospital with hypotension, severe hyponatremia and acute kidney injury. She does present with leukocytosis of unclear etiology. She is currently on Zosyn Urinalysis, urine culture and abdominal ultrasound of the right upper quadrant and renal ultrasound ordered for further evaluation. Continue supportive care. Further recommendations as patient progresses. The above dictated assessment and findings were discussed with Dr. Bermeo. The impression and plan of care have been directed as dictated. Karina Jean nurse practitioner acting as scribe for Dr. Bermeo.
[2018-05-22] MEDS: SACUBITRIL/VALSARTAN 49 MG-51 MG TABLET PO SCH ×2 (14:11→19:59)
[2018-05-22] MEDS: FUROSEMIDE 20 MG TAB PO SCH (15:51)
[2018-05-22] MEDS: PANTOPRAZOLE 40 MG/10 ML VIAL IVP SCH (15:52)
[2018-05-22] MEDS: ALLOPURINOL 100 MG TAB PEG/G-TUBE SCH (15:52)
[2018-05-22] MEDS: OXYBUTYNIN CHLORIDE 5 MG TAB PEG/G-TUBE SCH ×3 (15:52→19:59)
[2018-05-22] MEDS: clonazePAM 0.5 MG TAB PEG/G-TUBE PRN ×2 (15:56→20:07)
--- NOTE | 2018-05-22 15:57 | US ---
EXAMINATION TYPE: US abd limited kidneys/bladder DATE OF EXAM: 05/22/2018 COMPARISON: renal US July 11, [address] abdomen and pelvis September 20, 2015 CLINICAL HISTORY: fever, known GB disease. PEG tube present. US exam is technically limited as patient is unable to lay supine due to difficulty breathing; very l arge body habitus EXAM MEASUREMENTS: Liver Length: 16.1 cm Gallbladder Wall: 0.3 cm CBD: 0.3 cm Right Kidney: 8.9 x 5.5 x 4.3 cm Left Kidney: 7.8 x 4.2 x 5.0 cm Post Void Volume: not assessed on inpatient Pancreas: hyperechoic and limitedly seen due to overlying bowel gas and PEG tube Liver: nodular appearance to borders and vessels limited seen within Gallbladder: couple of shadowing stones with possible sludge noted as hyperechoic and isoechoic echo es in dependent/posterior wall. Mobility of these echoes difficult to assess as patient would not richard nge positions. CBD: wnl Right Kidney: difficult to see renal cyst(s) due to above limitations and patient's c/o pain with pr obe pressure Left Kidney: lateral cortical cyst noted = 1.3 x 1.4 x 1.2cm Bladder: not seen at symphysis pubis and very large panus Markedly suboptimal study due to patient's large body habitus, overlying bowel gas and PEG tube with patient difficulty holding breath. Pancreas is suboptimally evaluated on images saved. Visualized por tion of liver shows no mass or extrahepatic ductal dilatation. Gallstones are redemonstrated in gallb ladder which is elongated. No surrounding fluid is present. No gross hydronephrosis is seen on limite d images of bilateral kidneys. Bladder is suboptimally evaluated on images saved. IMPRESSION: Markedly suboptimal study, gallstones redemonstrated without convincing secondary ultraso und evidence for acute cholecystitis.
[2018-05-22 16:50] LABS: Glucose,Whole Blood 168 mg/dL (75-99)
--- NOTE | 2018-05-22 18:18 | HP ---
HISTORY AND PHYSICAL CHIEF COMPLAINT: Chest pain, shortness of breath. HISTORY OF PRESENT ILLNESS: This is another of many admissions for this 68-year-old mentally debilitated female with congestive heart failure, diabetes, atrial fibrillation, hyperlipidemia and CKD. She came to the office complaining of shortness of breath and tightness in the chest. Her EKG was difficult to interpret, but did not give any definite evidence of ischemia or arrhythmia. She has was sent to the hospital for further evaluation and was found to have a BNP of 4720. Lactic acid was 1.7. She had a temperature of 100.4. REVIEW OF SYSTEMS: She denied any other complaints other than shortness of breath, congestion and chest pressure. She had no vomiting, chills, etc. She is normally incontinent of urine. PAST MEDICAL HISTORY, FAMILY HISTORY, PERSONAL AND SOCIAL HISTORIES: Otherwise unchanged. She has a PEG tube which she uses infrequently and was placed when she had a stroke several years ago. She is on Advair Diskus, quetiapine 100 mg at bedtime, omeprazole 20 mg once a day, carvedilol 3.125 mg b.i.d., losartan 25 mg once a day, simvastatin 40 once a day, Lasix 40 once a day, oxybutynin 5 mg t.i.d., Klonopin 0.5 t.i.d. p.r.n., allopurinol 100 mg once a day, vitamin D3 400 units once a day, Entresto 49/51 twice a day, Levemir 30 units once a day, tramadol p.r.n., NovoLog 10 units before meals 3 times a day, updraft with Ventolin and ipratropium bromide. She does not smoke or drink. PHYSICAL EXAM: Blood pressure was 90/50 with a pulse 72 and irregular, respirations of 18 and temperature of 100.4. In general, she appeared to be obese, pale and she looks slightly cyanotic. She was a little bit more lethargic than usual. Skin was dry. Head, ears, eyes, nose, mouth and throat were normal and breath sounds are diminished throughout with occasional rales and rhonchi. Cardiac demonstrated what sounded like atrial fibrillation and the abdomen is soft and nontender without visceromegaly or masses. Bowel sounds are present. Extremities are normal and neurologically she was intact, but lethargic. She was admitted to the hospital with diagnoses: 1. Shortness of breath and chest pain. 2. Congestive heart failure. 3. Rule out myocardial ischemia. 4. Rule out pulmonary embolism. 5. Diuresis. 6. Cardiac enzymes. WESTON / TEE: [id number] /
[2018-05-22] MEDS: QUEtiapine 100 MG TAB PEG/G-TUBE SCH (19:59)
[2018-05-22] MEDS: ATORVASTATIN 20 MG TAB PEG/G-TUBE SCH (19:59)
[2018-05-22 20:30] LABS: Appearance,Urine Turbid (Clear); Bilirubin,Urine Negative (Negative); Blood,Urine Small (Negative); Color,Urine Yellow; Glucose,Urine (UA) Negative (Negative); Ketones,Urine Negative (Negative); Leukocyte Esterase,Urine Large (Negative); Nitrite,Urine Negative (Negative); PH, Urine 5.5 (5.0-8.0); Protein,Urine 1+ (Negative); RBC,Urine 33 /hpf (0-5); Specific Gravity,Urine 1.012 (1.001-1.035); Urobilinogen,Urine <2.0 mg/dL (<2.0); WBC,Urine >182 /hpf (0-5)
[2018-05-22] MEDS ORDERED: SYMBICORT 160-4.5 MCG INHALER INHALATION ONE (20:41)
[2018-05-22 21:11] LABS: Glucose,Whole Blood 231 mg/dL (75-99)
--- NOTE | 2018-05-22 21:36 | P.CON ---
Consult Note - . Consult date: 05/22/18 Assessment/Plan:: This is a 68-year-old female patient known to ID service as she was seen by us in September 2015. Also patient history is obtained from her boyfriend and primary caregiver, Mr. Rafael Caraballo. Yesterday patient had a low blood pressure of 79/59 at home, he took patient to the doctor's office and her temperature was 100 and she seemed to be pale and his had trouble breathing for the past month. He then brought her into [facility] for evaluation. Patient is normally wheelchair and bedbound and total care for caregivers. Boyfriend denies having any falls at home. She does have an occasional cough but this is chronic and no change. There's been no nausea, vomiting or diarrhea. Upon presentation, patient had blood pressure of 87/51 sodium was 122, potassium 5.8, chloride 80, BUN 21 creatinine 1.64. Troponins of been negative on 2 draws. Lactic acid was 1.7, proBNP 4720. Blood culture status received. D-dimer was elevated at 1.56 and V/Q scan was nondiagnostic as patient could not complete entire ventilation perfusion sequence after injection of radiotracer. Patient is seen in her room and selective care, she is quite lethargic but her caregiver states this is her baseline. He states he usually gets her up in the morning and she is up for about half hour to 45 minutes and then she falls asleep again. Apparently patient did not sleep at all on Monday night. Patient denies having any chest pain or abdominal pain. She does complain of mild dysuria. Urinalysis was not obtained. Patient is currently on Zosyn. Patient has a chronic PEG tube but also takes nourishment orally. Speech therapy to evaluate oral intake. Please see the consult as dictated by nurse practitioner Karina Miranda. 68-year-old woman status post stroke difficulty with her speech status post stroke has been nutrition maintained via tube feed. Presents from home feeling ill, with fever and was found evidence of relative hypotension and significant hyponatremia. X-ray showing evidence of some congestive heart failure and the patient does have shortness of breath. She is also having cough without sputum production. She does have some dysuria that is noted in urinary frequency. Daughter relates that this is not very new. But the change of her status with the fever and hypotension and increased emotional lability is unusual. As noted the chest x-ray shows evidence of congestive heart failure no kavon pneumonia seen. Urinalysis is requested urine culture is requested the patient does have a history of urinary infection and with her fever antibiotic therapy is initiated with Zosyn based on prior cultures. She does receive nutrition via her PEG tube feeds, and apparently she does also eat food in addition to her tube feed. Speech therapy has been requested to ensure that she is not aspirating the extra food that she is ingesting. Cultures obtained which will further help direct antibiotic therapy. Fever is improving. Leukocytosis is concerning and raises the likelihood of underlying infection whether it is pulmonary or urinary source will be determined. I agree with evaluation, assessment and plan as dictated by nurse practitioner Mrs. Karina Jean.
[2018-05-22] MEDS: INSULIN DETEMIR 100 UNIT/ML 10 ML VIAL SQ SCH (22:05)
[2018-05-22] MEDS ORDERED: FUROSEMIDE 10 MG/ML 2 ML VIAL IV ONE (22:56)
[2018-05-23] MEDS: clonazePAM 0.5 MG TAB PEG/G-TUBE PRN (01:51)
[2018-05-23] MEDS: PIPERACILLIN-TAZOBACTAM 3.375 GM in DEXTROSE/WATER 1 50ML.BAG IVPB SCH ×3 (01:52→19:30)
[2018-05-23 06:20] LABS: Glucose,Whole Blood 141 mg/dL (75-99)
[2018-05-23] MEDS: SODIUM CHLORIDE 0.9% 1,000 ML IV SCH (06:25)
[2018-05-23] MEDS: INSULIN ASPART 100 UNIT/ML 1 ML 10 ML VIAL SQ SCH ×7 (06:25→21:53)
[2018-05-23] MEDS: CARVEDILOL 3.125 MG TAB PEG/G-TUBE SCH ×2 (06:38→19:30)
[2018-05-23] MEDS: ALBUTEROL NEBULIZED 2.5 MG/3 ML INHALATION PRN ×4 (09:04→21:38)
[2018-05-23] MEDS: SYMBICORT 160-4.5 MCG INHALER INHALATION SCH ×2 (09:04→21:38)
[2018-05-23] MEDS: SACUBITRIL/VALSARTAN 49 MG-51 MG TABLET PO SCH ×2 (09:23→21:52)
[2018-05-23] MEDS: FERROUS SULFATE 325 MG TAB PO SCH (09:24)
[2018-05-23] MEDS: OXYBUTYNIN CHLORIDE 5 MG TAB PEG/G-TUBE SCH ×3 (09:24→21:52)
[2018-05-23] MEDS: ALLOPURINOL 100 MG TAB PEG/G-TUBE SCH (09:24)
[2018-05-23] MEDS: FUROSEMIDE 20 MG TAB PO SCH (09:24)
[2018-05-23] MEDS: PANTOPRAZOLE 40 MG/10 ML VIAL IVP SCH (09:24)
[2018-05-23] MEDS: CHOLECALCIFEROL 400 UNIT TAB PEG/G-TUBE SCH (09:24)
[2018-05-23 11:36] LABS: Glucose,Whole Blood 147 mg/dL (75-99)
[2018-05-23 17:26] LABS: Glucose,Whole Blood 123 mg/dL (75-99)
--- NOTE | 2018-05-23 18:28 | PN ---
PROGRESS NOTE CHIEF COMPLAINT: Shortness of breath, congestive heart failure, cardiomyopathy and diabetes. HISTORY OF PRESENT ILLNESS: This lady seems to be slowly improving. Blood sugars are under fairly good control. She is still short of breath. She is anxious to be discharged. PHYSICAL EXAMINATION: She still has rales anteriorly and posteriorly. Cardiac exam is unchanged. The abdomen is soft, nontender. IMPRESSION: 1. Congestive heart failure. 2. Hyponatremia. 3. Pneumonitis. PLAN: Continue with current treatment and increase activity. MMODL / SERJION: [id number] /
--- NOTE | 2018-05-23 18:49 | PN ---
PROGRESS NOTE CHIEF COMPLAINT: Weakness, congestive heart failure, diabetes, renal failure and hyponatremia. HISTORY OF PRESENT ILLNESS: This lady is breathing a little bit better. Color is improved. The laboratory studies still a concern. REVIEW OF SYSTEMS: She is having no chest pain, hemoptysis, fever, chills, etc. PHYSICAL EXAM: Breath sounds are diminished with rales and rhonchi throughout. Cardiac is normal. The abdomen is soft and nontender. IMPRESSION: 1. Congestive heart failure. 2. Low-grade fever. 3. Probable pneumonia. 4. Hyponatremia. 5. Renal failure. 6. Leukocytosis. PLAN: Continue with IV fluids and management of her congestive heart failure. Labs will be followed as well. Her white count is 24,000 with a sodium of 123 and potassium 5.4. V/Q scan is pending. BUN is 62 and a creatinine of 1.78. MMODL / IJN: [id number] /
[2018-05-23] MEDS: LEVOFLOXACIN 250 MG TAB PO SCH (19:30)
[2018-05-23 20:13] LABS: Glucose,Whole Blood 138 mg/dL (75-99)
[2018-05-23] MEDS: QUEtiapine 100 MG TAB PEG/G-TUBE SCH (21:52)
[2018-05-23] MEDS: ATORVASTATIN 20 MG TAB PEG/G-TUBE SCH (21:52)
[2018-05-23] MEDS: INSULIN DETEMIR 100 UNIT/ML 10 ML VIAL SQ SCH (22:11)
[2018-05-24] MEDS: PIPERACILLIN-TAZOBACTAM 3.375 GM in DEXTROSE/WATER 1 50ML.BAG IVPB SCH ×3 (03:31→20:06)
[2018-05-24] MEDS: SODIUM CHLORIDE 0.9% 1,000 ML IV SCH ×2 (06:03→17:16)
[2018-05-24 07:02] LABS: Glucose,Whole Blood 244 mg/dL (75-99)
[2018-05-24] MEDS: SYMBICORT 160-4.5 MCG INHALER INHALATION SCH ×3 (07:39→20:32)
[2018-05-24] MEDS: ALBUTEROL NEBULIZED 2.5 MG/3 ML INHALATION PRN ×3 (07:39→21:46)
[2018-05-24] MEDS: FERROUS SULFATE 325 MG TAB PO SCH (09:00)
[2018-05-24] MEDS: INSULIN ASPART 100 UNIT/ML 1 ML 10 ML VIAL SQ SCH ×7 (09:53→22:09)
[2018-05-24] MEDS: FUROSEMIDE 20 MG TAB PO SCH (10:31)
[2018-05-24] MEDS: CARVEDILOL 3.125 MG TAB PEG/G-TUBE SCH ×2 (10:33→17:08)
[2018-05-24] MEDS: CHOLECALCIFEROL 400 UNIT TAB PEG/G-TUBE SCH (10:34)
[2018-05-24] MEDS: OXYBUTYNIN CHLORIDE 5 MG TAB PEG/G-TUBE SCH ×3 (10:34→22:06)
[2018-05-24] MEDS: ALLOPURINOL 100 MG TAB PEG/G-TUBE SCH (10:34)
[2018-05-24] MEDS: SACUBITRIL/VALSARTAN 49 MG-51 MG TABLET PO SCH ×2 (10:35→22:07)
[2018-05-24] MEDS: PANTOPRAZOLE 40 MG/10 ML VIAL IVP SCH (10:35)
[2018-05-24] MEDS: FERROUS SULFATE ORAL ELIXIR 300 MG/5 ML CUP PO SCH (10:35)
[2018-05-24 11:44] LABS: Glucose,Whole Blood 197 mg/dL (75-99)
[2018-05-24] MEDS: LEVOFLOXACIN 250 MG TAB PO SCH (17:08)
[2018-05-24 17:14] LABS: Glucose,Whole Blood 101 mg/dL (75-99)
[2018-05-24 20:31] LABS: Glucose,Whole Blood 175 mg/dL (75-99)
[2018-05-24] MEDS: ATORVASTATIN 20 MG TAB PEG/G-TUBE SCH (22:06)
[2018-05-24] MEDS: INSULIN DETEMIR 100 UNIT/ML 10 ML VIAL SQ SCH (22:07)
[2018-05-25] MEDS: PIPERACILLIN-TAZOBACTAM 3.375 GM in DEXTROSE/WATER 1 50ML.BAG IVPB SCH ×3 (03:41→19:45)
[2018-05-25 06:57] LABS: Glucose,Whole Blood 275 mg/dL (75-99)
[2018-05-25] MEDS: ALBUTEROL NEBULIZED 2.5 MG/3 ML INHALATION PRN ×3 (07:45→20:08)
[2018-05-25] MEDS: SYMBICORT 160-4.5 MCG INHALER INHALATION SCH ×2 (07:45→20:08)
[2018-05-25] MEDS: PANTOPRAZOLE SODIUM 40 MG GRANULE PKT PEG/G-TUBE SCH (07:59)
[2018-05-25] MEDS: INSULIN ASPART 100 UNIT/ML 1 ML 10 ML VIAL SQ SCH ×7 (08:00→21:21)
[2018-05-25] MEDS: CARVEDILOL 3.125 MG TAB PEG/G-TUBE SCH ×2 (08:00→18:00)
[2018-05-25] MEDS: OXYBUTYNIN CHLORIDE 5 MG TAB PEG/G-TUBE SCH ×3 (08:01→21:19)
[2018-05-25] MEDS: ALLOPURINOL 100 MG TAB PEG/G-TUBE SCH (08:01)
[2018-05-25] MEDS: FERROUS SULFATE ORAL ELIXIR 300 MG/5 ML CUP PO SCH (08:02)
[2018-05-25] MEDS: CHOLECALCIFEROL 400 UNIT TAB PEG/G-TUBE SCH (08:02)
[2018-05-25] MEDS: SACUBITRIL/VALSARTAN 49 MG-51 MG TABLET PO SCH ×2 (08:02→21:19)
[2018-05-25] MEDS: SODIUM CHLORIDE 0.9% 1,000 ML IV SCH ×2 (10:31→19:46)
[2018-05-25 11:10] LABS: Glucose,Whole Blood 262 mg/dL (75-99)
[2018-05-25 17:18] LABS: Glucose,Whole Blood 126 mg/dL (75-99)
[2018-05-25] MEDS: LEVOFLOXACIN 250 MG TAB PO SCH (17:59)
[2018-05-25 20:18] LABS: Glucose,Whole Blood 158 mg/dL (75-99)
[2018-05-25] MEDS: ATORVASTATIN 20 MG TAB PEG/G-TUBE SCH (21:19)
[2018-05-25] MEDS: INSULIN DETEMIR 100 UNIT/ML 10 ML VIAL SQ SCH (21:24)
[2018-05-26] MEDS: ALBUTEROL NEBULIZED 2.5 MG/3 ML INHALATION PRN ×4 (00:25→21:01)
[2018-05-26] MEDS ORDERED: HALOPERIDOL LACTATE 5 MG/ML 1 ML VIAL IM ONE (00:49)
[2018-05-26] MEDS ORDERED: QUEtiapine 50 MG TAB PO STA (00:52)
[2018-05-26] MEDS: PIPERACILLIN-TAZOBACTAM 3.375 GM in DEXTROSE/WATER 1 50ML.BAG IVPB SCH ×3 (02:02→20:34)
[2018-05-26 07:06] LABS: Glucose,Whole Blood 244 mg/dL (75-99)
[2018-05-26] MEDS: INSULIN ASPART 100 UNIT/ML 1 ML 10 ML VIAL SQ SCH ×7 (07:45→20:36)
[2018-05-26] MEDS: SYMBICORT 160-4.5 MCG INHALER INHALATION SCH ×2 (08:39→21:01)
[2018-05-26] MEDS: OXYBUTYNIN CHLORIDE 5 MG TAB PEG/G-TUBE SCH ×3 (09:19→20:37)
[2018-05-26] MEDS: PANTOPRAZOLE SODIUM 40 MG GRANULE PKT PEG/G-TUBE SCH (09:19)
[2018-05-26] MEDS: SACUBITRIL/VALSARTAN 49 MG-51 MG TABLET PO SCH ×2 (09:19→20:37)
[2018-05-26] MEDS: FERROUS SULFATE ORAL ELIXIR 300 MG/5 ML CUP PO SCH (09:19)
[2018-05-26] MEDS: CARVEDILOL 3.125 MG TAB PEG/G-TUBE SCH ×2 (09:20→17:52)
[2018-05-26] MEDS: CHOLECALCIFEROL 400 UNIT TAB PEG/G-TUBE SCH (09:20)
[2018-05-26] MEDS: ALLOPURINOL 100 MG TAB PEG/G-TUBE SCH (09:20)
[2018-05-26 11:03] LABS: Glucose,Whole Blood 162 mg/dL (75-99)
[2018-05-26 17:10] LABS: Glucose,Whole Blood 221 mg/dL (75-99)
[2018-05-26] MEDS: LEVOFLOXACIN 250 MG TAB PO SCH (17:52)
[2018-05-26] MEDS: SODIUM CHLORIDE 0.9% 1,000 ML IV SCH (20:35)
[2018-05-26] MEDS: INSULIN DETEMIR 100 UNIT/ML 10 ML VIAL SQ SCH (20:35)
[2018-05-26 20:36] LABS: Glucose,Whole Blood 223 mg/dL (75-99)
[2018-05-26] MEDS: ATORVASTATIN 20 MG TAB PEG/G-TUBE SCH (20:37)
[2018-05-27] MEDS: PIPERACILLIN-TAZOBACTAM 3.375 GM in DEXTROSE/WATER 1 50ML.BAG IVPB SCH ×3 (03:16→19:26)
[2018-05-27] MEDS: SYMBICORT 160-4.5 MCG INHALER INHALATION SCH ×2 (07:18→19:33)
[2018-05-27] MEDS: ALBUTEROL NEBULIZED 2.5 MG/3 ML INHALATION PRN ×3 (07:18→19:33)
[2018-05-27 07:24] LABS: Glucose,Whole Blood 233 mg/dL (75-99)
[2018-05-27] MEDS: INSULIN ASPART 100 UNIT/ML 1 ML 10 ML VIAL SQ SCH ×7 (09:20→21:47)
[2018-05-27] MEDS: CARVEDILOL 3.125 MG TAB PEG/G-TUBE SCH ×2 (09:41→18:00)
[2018-05-27] MEDS: ALLOPURINOL 100 MG TAB PEG/G-TUBE SCH (09:42)
[2018-05-27] MEDS: PANTOPRAZOLE SODIUM 40 MG GRANULE PKT PEG/G-TUBE SCH (09:42)
[2018-05-27] MEDS: FERROUS SULFATE ORAL ELIXIR 300 MG/5 ML CUP PO SCH (09:43)
[2018-05-27] MEDS: CHOLECALCIFEROL 400 UNIT TAB PEG/G-TUBE SCH (09:43)
[2018-05-27] MEDS: OXYBUTYNIN CHLORIDE 5 MG TAB PEG/G-TUBE SCH ×3 (09:43→21:47)
[2018-05-27] MEDS: SACUBITRIL/VALSARTAN 49 MG-51 MG TABLET PO SCH ×2 (09:44→21:47)
[2018-05-27 11:06] LABS: Glucose,Whole Blood 173 mg/dL (75-99)
[2018-05-27] MEDS ORDERED: LORazepam 1 MG TAB PO PRN (11:58)
[2018-05-27] MEDS: SODIUM CHLORIDE 0.9% 1,000 ML IV SCH (12:45)
[2018-05-27] MEDS: QUEtiapine 200 MG TAB PO SCH ×2 (12:53→21:47)
[2018-05-27 17:24] LABS: Glucose,Whole Blood 128 mg/dL (75-99)
[2018-05-27] MEDS: LEVOFLOXACIN 250 MG TAB PO SCH (18:00)
[2018-05-27 20:26] LABS: Glucose,Whole Blood 142 mg/dL (75-99)
[2018-05-27] MEDS: INSULIN DETEMIR 100 UNIT/ML 10 ML VIAL SQ SCH (21:47)
[2018-05-27] MEDS: ATORVASTATIN 20 MG TAB PEG/G-TUBE SCH (21:47)
[2018-05-27 22:29] VITALS: RESP 16
--- NOTE | 2018-05-27 23:41 | PN ---
PROGRESS NOTE CHIEF COMPLAINT: Congestive heart failure, hypotension, diabetes, and schizophrenia. HISTORY OF PRESENT ILLNESS: This lady has become extremely psychotic since her medications were cut back. We will increase her Seroquel again and reinstitute sedation. PHYSICAL EXAM: She is noncooperative. She is yelling and screaming. Exam is unchanged. IMPRESSION: 1. Congestive heart failure. 2. Diabetes. 3. Schizophrenia with acute psychosis. PLAN: Raise Seroquel and reinstitute Ativan. MMODL / IJN: [id number] /
[2018-05-28] MEDS: PIPERACILLIN-TAZOBACTAM 3.375 GM in DEXTROSE/WATER 1 50ML.BAG IVPB SCH ×2 (02:20→11:20)
[2018-05-28] MEDS: SODIUM CHLORIDE 0.9% 1,000 ML IV SCH (02:20)
[2018-05-28] MEDS: ALBUTEROL NEBULIZED 2.5 MG/3 ML INHALATION PRN ×2 (04:56→11:54)
[2018-05-28 05:22] VITALS: BP 92/54; TEMP 97.7
[2018-05-28] MEDS: SYMBICORT 160-4.5 MCG INHALER INHALATION SCH (07:10)
[2018-05-28 07:11] LABS: Glucose,Whole Blood 141 mg/dL (75-99)
[2018-05-28] MEDS: INSULIN ASPART 100 UNIT/ML 1 ML 10 ML VIAL SQ SCH ×2 (09:34)
--- NOTE | 2018-05-28 10:38 | CDI ---
Last Revision, August 2017 Documentation Clarification Form Date: 05/28/18 From: Zaida Costa RN, CCDS Admit Date: 05/21/2018 7:26:00 PM Patient Name: Anju Valenzuela Visit Number: [id number] Discharge Date: ATTENTION: The Clinical Documentation Specialists (CDI) and [facility] Coding Staff appreciate your assistance in clarifying documentation. Please respond to the clarification below the line at the bottom and electronically sign. The CDI & [facility] Coding staff will review the response and follow-up if needed. Please note: Queries are made part of the Legal Health Record. If you have any questions, please contact the author of this message via ITS. Vishnu Bond MD History/Risk Factors: Morbidly obese, Atrial Fibrillation, Asthma, CVA, TIA, Diabetes Mellitus, Hypertension, PEG tube Clinical Indicators: VS/Pulse OX: 87/51 92 18 97.7 92 % RA BNP: 4740 Echocardiogram Results: (03/05/18) Right and left ventricle is normal in size and function. EF 45-50 % Chest X Ray: Small pleural effusion and pulmonary interstitial edema is slightly worse than old exam and could relate to heart failure Treatment: Monitor O2 Sat's Coreg Lasix IV ( then per Peg tube ) In your professional opinion, can you please clarify the acuity and type of CHF if known? Systolic Heart Failure: Acute Chronic Acute on Chronic Diastolic Heart Failure: Acute Chronic Acute on Chronic Systolic & Diastolic Heart Failure: Acute Chronic Acute on Chronic Heart Failure Unable to Determine Other, please specify Please continue to document in your progress notes and discharge summary in order to capture severity of illness and risk of mortality. Include clinical findings that support your diagnosis. MTDD
--- NOTE | 2018-05-28 11:04 | CDI ---
Last Revision, August 2017 Documentation Clarification Form Date: 05/28/2018 10:39:55 AM From: Zaida Costa RN, CCDS Admit Date: 05/21/2018 7:26:00 PM Patient Name: Anju Valenzuela Visit Number: [id number] Discharge Date: ATTENTION: The Clinical Documentation Specialists (CDI) and [facility] Coding Staff appreciate your assistance in clarifying documentation. Please respond to the clarification below the line at the bottom and electronically sign. The CDI & [facility] Coding staff will review the response and follow-up if needed. Please note: Queries are made part of the Legal Health Record. If you have any questions, please contact the author of this message via ITS. Dr. Malone, MD Dr. Jean-Claude Gomez documentation states: "She does have some dysuria that is noted in urinary frequency. But the change of her status with fever and hypotension and increased emotional liability is unusual." History/Risk Factors: Atrial Fibrillation, Asthma, CVA, Diabetes mellitus, Hypertension, Peg tube Clinical indicators: Urine culture: Final Klebsiella pneumonia. Abnormal Labs: WBC 24.4, Neutrophils 22.5, Sodium 122, Potassium 5.8, BUN, 61, CR 1.64, Lactic Acid 1.7 UA: Large Leukocyte Esterase, WBC >182 Treatment: Monitor Labs/Vital signs Zosyn IV IV Fluids Clinical significance of diagnostic testing and treatment CANNOT be assumed or coded without physician documentation of significance if any. Please clarify what abnormal laboratory signifies: Infectious process, please specify Urinary tract infection ruled in (specify organism if known) Urinary tract infection ruled out Unable to determine Other, please specify Please continue to document in your progress notes in order to capture severity of illness and risk of mortality. Include clinical findings that support your diagnosis. MTDD
[2018-05-28 11:20] VITALS: BMI 47.5
[2018-05-28] MEDS: PANTOPRAZOLE SODIUM 40 MG GRANULE PKT PEG/G-TUBE SCH (11:21)
[2018-05-28] MEDS: FERROUS SULFATE ORAL ELIXIR 300 MG/5 ML CUP PO SCH (11:21)
[2018-05-28] MEDS: QUEtiapine 200 MG TAB PO SCH (11:21)
[2018-05-28] MEDS: CARVEDILOL 3.125 MG TAB PEG/G-TUBE SCH (11:21)
[2018-05-28] MEDS: ALLOPURINOL 100 MG TAB PEG/G-TUBE SCH (11:21)
[2018-05-28] MEDS: SACUBITRIL/VALSARTAN 49 MG-51 MG TABLET PO SCH (11:21)
[2018-05-28] MEDS: CHOLECALCIFEROL 400 UNIT TAB PEG/G-TUBE SCH (11:21)
[2018-05-28] MEDS: OXYBUTYNIN CHLORIDE 5 MG TAB PEG/G-TUBE SCH (11:21)
--- NOTE | 2018-05-28 11:22 | CDI ---
Last Revision, August 2017 Documentation Clarification Form Date: 05/28/2018 11:05:57 AM From: Zaida Costa RN, CCDS Admit Date: 05/21/2018 7:26:00 PM Patient Name: Anju Valenzuela Visit Number: [id number] Discharge Date: ATTENTION: The Clinical Documentation Specialists (CDI) and [facility] Coding Staff appreciate your assistance in clarifying documentation. Please respond to the clarification below the line at the bottom and electronically sign. The CDI & [facility] Coding staff will review the response and follow-up if needed. Please note: Queries are made part of the Legal Health Record. If you have any questions, please contact the author of this message via ITS. Vishnu Bond MD Renal Failure was documented in your progress note on 05/23/18 History/Risk Factors: Renal Failure, CKD, Diabetes mellitus, CVA, Hypertension , Peg tube Clinical Indicators: Present with shortness of breath and low blood pressure. She is weak and can't ambulate by herself at this time. He had a stroke in 2016 has difficulty swallowing and has a peg tube. Mucous membranes are dry. ON Admission BUN 61, CR 1.64 GFR 32 05/22/18 BUN 62, CR 1.78, GFR 29 Transplant status, Hemodialysis status Treatment: IV Fluids Monitor Labs In order to capture the severity of condition, please further clarify the Acuity of the if Renal failure and the stage of the condition if known: Acute renal failure, Please specify etiology (if known): with Tubular Necrosis Acute kidney injury Acute on chronic renal failure CKD Stage 1 GFR >90 CKD Stage 2 GFR 60-89 CKD Stage 3 GFR 30-59 CKD Stage 4 GFR 15-29 CKD Stage 5 GFR <15 Chronic renal failure/Chronic Kidney disease (CKD) please stage if known CKD Stage 1 GFR >90 CKD Stage 2 GFR 60-89 CKD Stage 3 GFR 30-59 CKD Stage 4 GFR 15-29 CKD Stage 5 GFR <15 Other, please specify Unable to determine Please continue to document in your progress notes and discharge summary in order to capture severity of illness and risk of mortality. Include clinical findings that support your diagnosis. MTDD
[2018-05-28 11:25] LABS: Glucose,Whole Blood 133 mg/dL (75-99)
--- NOTE | 2018-05-28 12:00 | CDI ---
Last Revision, August 2017 Documentation Clarification Form Date: 05/28/2018 11:23:13 AM From: Zaida Costa RN, CCDS Admit Date: 05/21/2018 7:26:00 PM Patient Name: Anju Valenzuela Visit Number: [id number] Discharge Date: ATTENTION: The Clinical Documentation Specialists (CDI) and [facility] Coding Staff appreciate your assistance in clarifying documentation. Please respond to the clarification below the line at the bottom and electronically sign. The CDI & [facility] Coding staff will review the response and follow-up if needed. Please note: Queries are made part of the Legal Health Record. If you have any questions, please contact the author of this message via ITS. Vishnu Butcher MD 05/22/18 progress notes "change of her status with fever and hypotension and increased emotional liability is unusual" History/Risk Factors: Chronic Atrial Fibrillation, Asthma, CVA, Diabetes mellitus, Hypertension Clinical Indicators: Present with shortness of breath and was found to be hypotensive at PCP office. Vitals signs on admission: 87/51 92 18 97.7 92 % RA WBC/Left Shift WBC 24.4, Neutrophils 22.5, sodium 122, potassium 5.8, BUN 61 , CR 1.64 Lactic acid: 1.7 Blood cultures: No growth after 144 hours Urine Culture: Klebsiella pneumonia Other Clinical Indicators: She is a mentally debilitated female with history of urinary tract infections. Temp noted by Dr. Malone of 100.4. She was noted to be obese, pale and looks slightly cyanotic, lethargic. Treatment: ID Consult: Yes Antibiotics: Zosyn IV IV Bolus: Monitor Labs/Vital signs In your professional opinion, please clarify if these findings signify one of the following conditions, whether the condition is POA, and cause, if known: Condition Sepsis Severe Sepsis Septic Shock Sepsis ruled out Other, please specify Unable to determine Present on Admission: Yes No Identify the (suspected) organism Link or clarify if there is associated (due to/with): Organ failure Shock SIRS Criteria..2 or more of the following may indicate SIRS: Temperature < 96.8F (36C) or > 101.0F (38.3C) Heart Rate > 90 bpm Respiratory Rate > 20 breaths/min or PaCO2 < 32 mmHg White Blood Cell Count > 12,000 or < 4,000 cells/mm3 or > 10% bands Lactate >2.0 mmol/L (>4.0 is equivalent to septic shock) Please continue to document in your progress notes and discharge summary in order to capture severity of illness and risk of mortality. Include clinical findings that support your diagnosis. MTDD
[2018-05-28 13:00] VITALS: PULSE 82
--- NOTE | 2018-05-28 21:48 | MISC ---
MISCELLANOUS REPORT QUERY: CKD stage 4. MMODL / IJN: [id number] /
--- NOTE | 2018-05-28 21:48 | MISC ---
MISCELLANOUS REPORT QUERY: Chronic diastolic heart failure. MMODL / IJN: [id number] /
--- NOTE | 2018-05-29 17:01 | DS ---
DISCHARGE SUMMARY DATE OF SERVICE: 05/28/2018. CHIEF COMPLAINT: Shortness of breath, pneumonitis, and hyponatremia. HISTORY OF PRESENT ILLNESS AND PHYSICAL EXAM: The details of this lady's history and physical can be found in the initial workup. LABORATORY STUDIES: While she was in the hospital, she had laboratory studies, details of which can be found in the laboratory section of the chart. COURSE IN HOSPITAL: After admission, she was placed on bedrest, started on intravenous fluids and rehydrated. Congestive heart failure was brought under control and she seemed to be improving. She started to become more and more lethargic and her tranquilizer and Seroquel were withheld. She then became extremely agitated and psychotic. These were replaced and it was felt that she was doing well enough to go home. She will be discharged on usual medications, on diet and activity, and she will be seen by home care and we will see her in the office in few days. FINAL DIAGNOSES: 1. Congestive heart failure. 2. Pneumonitis. 3. Hyponatremia. 4. Diabetes. 5. Schizophrenia. OPERATIONS: None. CONSULTATIONS: None. CONDITION: She is improved. MMODL / IJN: [id number] /
--- NOTE | 2018-05-29 17:55 | PN ---
PROGRESS NOTE DATE OF SERVICE: 05/26/2018 CHIEF COMPLAINT: 1. Congestive heart failure. 2. Hyponatremia. 3. Urinary tract infection. HISTORY OF PRESENT ILLNESS: This lady is a difficult management problem. She has being very agitated and uncooperative. She has grown out klebsiella in the urine, and this will be treated. PHYSICAL EXAMINATION: Breath sounds are diminished with rales at both bases. Cardiac exam reveals an irregularly irregular rhythm. Abdomen is soft, nontender. IMPRESSION: 1. Urinary tract infection. 2. Hyponatremia. 3. Schizophrenia with agitation. PLAN: Continue with IV fluids and IV antibiotics. MMODL / IJN: [id number] /
--- NOTE | 2018-05-29 18:01 | PN ---
PROGRESS NOTE DATE OF SERVICE: 05/25/2018 CHIEF COMPLAINT: Electrolyte imbalance, pneumonitis, CHF, diabetes with renal failure. HISTORY OF PRESENT ILLNESS: This lady is doing a little bit better. She is rehydrated. Color is better. She is agitated and keeps demanding to be discharged. PHYSICAL EXAM: She has bilateral rhonchi anterior and posteriorly. Her cardiac demonstrates atrial fibrillation. The abdomen is soft, nontender. IMPRESSION: 1. Congestive heart failure. 2. Pneumonitis. 3. Diabetes. 4. Hyponatremia. 5. Schizophrenia. PLAN: Continue to manage her congestive heart failure. MMODL / IJN: [id number] /
--- NOTE | 2018-05-30 15:44 | PN ---
PROGRESS NOTE DATE OF SERVICE: 05/24/2018 CHIEF COMPLAINT: Congestive heart failure, pneumonitis with hyponatremia. HISTORY OF PRESENT ILLNESS: This lady is very lethargic. She has been very agitated. She has had no fever or chills. She denies chest pain. PHYSICAL EXAM: Breath sounds are poor with scattered rales throughout. Cardiac exam is unremarkable. The abdomen is protuberant, soft. Extremities are normal. IMPRESSION: 1. Lethargy. 2. Congestive heart failure. 3. Cardiomyopathy. 4. Diabetes. 5. Schizophrenia. PLAN: Stop Seroquel and Ativan to see if she becomes more awake and alert. MMODL / IJN: [id number] /
--- NOTE | 2018-06-01 11:31 | MISC ---
MISCELLANOUS REPORT QUERY Urinary tract infection was ruled in. Clarify these findings: Sepsis, ruled out. . There is no organ failure except for chronic renal failure. No shock. There was no SIRS. MMODL / IJN: [id number] /
== END 2018-05-28 13:10 | disposition home health service (06) | DRG 194 ==
LOC: EC 16:29 → 6SEL 19:26 → 5MS5E 05-23 17:09
PROVIDERS: ADMIT Family Medicine; ATTEND Family Medicine
DX: J18.9 Pneumonia, unspecified organism (principal); I13.0 Hypertensive heart and chronic kidney disease with heart failure and stage 1 through stage 4 chronic kidney disease, or unspecified chronic kidney disease; I50.32 Chronic diastolic (congestive) heart failure; E87.1 Hypo-osmolality and hyponatremia; I42.9 Cardiomyopathy, unspecified; J44.0 Chronic obstructive pulmonary disease with (acute) lower respiratory infection; N18.4 Chronic kidney disease, stage 4 (severe); N39.0 Urinary tract infection, site not specified; Z68.41 Body mass index [BMI] 40.0-44.9, adult; N17.9 Acute kidney failure, unspecified; E11.22 Type 2 diabetes mellitus with diabetic chronic kidney disease; E78.00 Pure hypercholesterolemia, unspecified; F20.9 Schizophrenia, unspecified; H91.90 Unspecified hearing loss, unspecified ear; I48.2 Chronic atrial fibrillation; Z79.4 Long term (current) use of insulin; B96.1 Klebsiella pneumoniae [K. pneumoniae] as the cause of diseases classified elsewhere; Z74.01 Bed confinement status; I69.328 Other speech and language deficits following cerebral infarction; I69.391 Dysphagia following cerebral infarction; R13.10 Dysphagia, unspecified; Z93.1 Gastrostomy status; Z99.3 Dependence on wheelchair; R45.1 Restlessness and agitation; Z79.899 Other long term (current) drug therapy; E66.01 Morbid (severe) obesity due to excess calories; Z88.6 Allergy status to analgesic agent; Z88.8 Allergy status to other drugs, medicaments and biological substances; F41.9 Anxiety disorder, unspecified; I95.9 Hypotension, unspecified; R79.1 Abnormal coagulation profile
CPT/HCPCS: 36415; 71046; 76705; 76770; 78580; 80053; 81001; 82550; 82553; 83605; 83735; 83880; 84484; 85025; 85379; 85610; 85730; 87040; 87077; 87086; 87186; 93005; 94640; 94760; 96361; 96365; 96366; 99285

== ENCOUNTER → 2018-06-25 | Outpatient (CLI) | payer MEDICARE, OTHER ==
[2018-06-25 10:49] LABS: Basophils % (A) 0 %; Eosinophils # (A) 0.3 k/uL (0-0.7); Eosinophils % (A) 3 %; HCT 34.4 % (34.0-46.0); HGB 10.9 gm/dL (11.4-16.0); Hypochromasia Slight; Lymphocytes # (A) 0.7 k/uL (1.0-4.8); Lymphocytes % (A) 7 %; MCH 30.4 pg (25.0-35.0); MCHC 31.8 g/dL (31.0-37.0); MCV 95.3 fL (80.0-100.0); Mean Platelet Volume 7.9; Monocytes # (A) 0.4 k/uL (0-1.0); Monocytes % (A) 4 %; Neutrophils # (A) 8.3 k/uL (1.3-7.7); Neutrophils % (A) 85 %; Platelet Count 206 k/uL (150-450); RBC 3.61 m/uL (3.80-5.40); RDW 15.7 % (11.5-15.5); WBC 9.8 k/uL (3.8-10.6)
[2018-06-25 10:55] LABS: Albumin 3.2 g/dL (3.5-5.0); Calcium 8.8 mg/dL (8.4-10.2); Phosphorus 5.3 mg/dL (2.5-4.5); Potassium 4.6 mmol/L (3.5-5.1); Uric Acid 7.7 mg/dL (3.7-7.4)
[2018-06-25 17:31] LABS: Parathyroid Hormone Intact 121.3 pg/mL (14.0-72.0)
[2018-06-25 17:34] LABS: Iron Saturation 19.92 (12.00-45.00)
[2018-06-25 17:45] LABS: Vitamin D 25 Hydroxy 33.6 ng/mL (30.0-100.0)
== END | disposition home or self-care (01) ==
LOC: LABWHC1 09:31
PROVIDERS: ATTEND Internal Medicine Nephrology
DX: N18.3 Chronic kidney disease, stage 3 (moderate) (principal); D63.1 Anemia in chronic kidney disease; E55.9 Vitamin D deficiency, unspecified; E21.3 Hyperparathyroidism, unspecified; M10.9 Gout, unspecified; N39.0 Urinary tract infection, site not specified
CPT/HCPCS: 36415; 80048; 82040; 82306; 82728; 83540; 83550; 83735; 83970; 84100; 84550; 85025

== ENCOUNTER 2018-07-21 14:55 | Emergency (ER) | payer MEDICARE, OTHER ==
[2018-07-21 15:09] VITALS: PULSE 75
--- NOTE | 2018-07-21 15:50 | ED ---
General Adult HPI - General Chief complaint: Recheck/Abnormal Lab/Rx Stated complaint: Peg tube issues Time Seen by Provider: 07/21/18 15:12 Source: patient Mode of arrival: wheelchair Limitations: no limitations - History of Present Illness Initial comments: Patient is a 68-year-old female presenting for PEG tube malfunction. The patient states that the tube has a pinhole and it has been leaking. She denies any surrounding erythema, pain and leave manager/boyfriend's bedside and states that he put a piece of tape around it which is helped leaking. They state that it was originally placed around 2015 by general surgery and they have not had a significant amount of problems with that. She also denies any abdominal pain, nausea/vomiting/diarrhea or fevers/chills. - Related Data Home Medications Medication Instructions Recorded Confirmed Oxybutynin Chloride [Ditropan] 10 mg PEG/G-TUBE TID 03/23/14 05/21/18 Ferrous Sulfate [Feosol] 325 mg PEG/G-TUBE DAILY 10/31/15 05/21/18 Omeprazole [PriLOSEC] 20 mg PEG/G-TUBE DAILY 10/31/15 05/21/18 traMADol HCL [Ultram] 50 mg PEG/G-TUBE Q6HR PRN 02/21/17 05/21/18 Allopurinol [Zyloprim] 100 mg PEG/G-TUBE DAILY 05/21/17 05/21/18 Carvedilol [Coreg] 3.125 mg PEG/G-TUBE BID 05/21/17 05/21/18 Furosemide [Lasix] 40 mg PEG/G-TUBE BID 05/21/17 05/21/18 Simvastatin [Zocor] 40 mg PEG/G-TUBE HS 05/21/17 05/21/18 Albuterol Nebulized [Ventolin 2.5 mg INHALATION RT-Q6H PRN 05/26/17 05/21/18 Nebulized] Cholecalciferol [Vitamin D3] 400 unit PEG/G-TUBE DAILY 05/26/17 05/21/18 Fluticasone/Salmeterol [Advair 1 puff INHALATION RT-BID 05/26/17 05/21/18 500-50 Diskus] Albuterol Inhaler [Ventolin Hfa 2 puff INHALATION RT-Q4H PRN 03/03/18 05/21/18 Inhaler] Ondansetron [Zofran ODT] 4 mg PO Q6H PRN 03/03/18 05/21/18 Insulin Aspart [NovoLOG Flexpen] 10 units SQ AC-TID 05/21/18 05/21/18 Insulin Detemir [Levemir] 30 unit SQ DAILY 05/21/18 05/21/18 Jevity 1 Gautam 3,000 ml PEG/G-TUBE DAILY 05/21/18 05/21/18 QUEtiapine FUMARATE [SEROquel] 300 mg PEG/G-TUBE HS 05/21/18 05/21/18 Sacubitril/Valsartan [Entresto 49 1 tab PEG/G-TUBE BID 05/21/18 05/21/18 mg-51 mg Tablet] clonazePAM [KlonoPIN] 0.5 mg PEG/G-TUBE TID PRN 05/21/18 05/21/18 Previous Rx's Medication Instructions Recorded Levofloxacin [Levaquin] 500 mg PO DAILY@1600 #10 tab 05/28/18 Allergies Allergy/AdvReac Type Severity Reaction Status Date / Time aloe AdvReac Mild Itching Verified 07/21/18 15:09 aspirin AdvReac Kidney Verified 07/21/18 15:09 issues cefepime AdvReac Hallucinati Verified 07/21/18 15:09 ons Review of Systems ROS Statement: Those systems with pertinent positive or pertinent negative responses have been documented in the HPI. Constitutional: Negative for chills, fatigue and fever. HENT: Negative for congestion. Respiratory: Negative for chest tightness, shortness of breath and wheezing. Negative for cough Cardiovascular: Negative for chest pain and palpitations. Gastrointestinal: Negative for abdominal pain. Negative for abdominal distention , diarrhea, nausea and vomiting. Positive for PEG tube malfunction Genitourinary: Negative for dysuria. Musculoskeletal: Negative for back pain, neck pain and neck stiffness. Skin: Negative for color change. Neurological: Negative for dizziness, speech difficulty, weakness and light- headedness. Psychiatric/Behavioral: Negative for agitation and confusion. Negative for anxiety ROS Other: All systems not noted in ROS Statement are negative. Past Medical History Past Medical History: Atrial Fibrillation, Asthma, CVA/TIA, Diabetes Mellitus, Hearing Disorder / Deafness, Hyperlipidemia, Hypertension, Renal Disease, Skin Disorder Additional Past Medical History / Comment(s): hypercholesterol, basestem stroke 2016, difficulty swallowing, pt has peg tube History of Any Multi-Drug Resistant Organisms: None Reported Past Surgical History: No Surgical Hx Reported Additional Past Surgical History / Comment(s): PEG tube, skin graft on left thigh 2016 at [facility] Past Anesthesia/Blood Transfusion Reactions: No Reported Reaction Past Psychological History: Anxiety Smoking Status: Never smoker Past Alcohol Use History: None Reported Past Drug Use History: None Reported - Past Family History Mother Family Medical History: No Reported History General Exam - General Exam Comments Initial Comments: Constitutional: Pt is oriented to person, place, and time. Pt appears well- developed and well-nourished. No distress. HENT: Head: Normocephalic and atraumatic. Eyes: EOM are normal. Neck: Normal range of motion. Neck supple. Cardiovascular: Normal rate, regular rhythm, S1 normal, S2 normal and normal heart sounds. Exam reveals no gallop and no friction rub. No murmur heard. Pulmonary/Chest: Effort normal and breath sounds normal. No tachypnea and no bradypnea. No respiratory distress. No wheezes or rales noted. Abdominal: Soft. Bowel sounds are normal. Pt exhibits no shifting dullness, no distension, no pulsatile liver, no fluid wave, no abdominal bruit and no ascites. There is no tenderness. There is no rigidity, no rebound, no guarding, no tenderness at McBurney's point and negative Oviedo's sign. PEG tube is in place with no surrounding erythema or tenderness. Musculoskeletal: Normal range of motion. Neurological: Pt is alert and oriented to person, place, and time. No cranial nerve deficit. Skin: Skin is warm and dry. No rash noted. Pt is not diaphoretic. No erythema. No pallor. Psychiatric: Pt has a normal mood and affect. Pt behavior is normal. Thought content normal. Limitations: no limitations Course Vital Signs 07/21/18 07/21/18 15:07 17:40 Temperature 98.1 F 98 F Pulse Rate 75 75 Respiratory 20 18 Rate Blood Pressure 109/66 110/64 O2 Sat by Pulse 96 98 Oximetry Procedures - Feeding Tube Replacement Reason for Replacement: not functioning/damaged Initial Tube Inserted: greater than 2 weeks Type of Tube: gastrostomy Use of Tube: medications and feeding Insertion Site Prior to Procedure: clean, GI fluid leaking Tube Used for Reinsertion: other [place] Tube Size (F): 20 Balloon Size (mls): 20 Verification of Placement: KUB Tube Secured by: tape/dressing Patient Tolerated Procedure: no complications Medical Decision Making - Medical Decision Making PEG tube was replaced without complications as noted in the procedure note. Placement location was confirmed by KUB.Explained all labs and diagnostic test results and that we will discharge the patient home and patient is to follow up with PCP in 1-2 days and return to the ED if symptoms worsen. Pt is agreeable to plan. Disposition Clinical Impression: PEG tube malfunction Disposition: HOME SELF-CARE Condition: Good Instructions: Percutaneous Endoscopic Gastrostomy Insertion (DC), How to Use and Care for Your PEG Tube (ED) Is patient prescribed a controlled substance at d/c from ED?: No Referrals: Vishnu Malone MD [Primary Care Provider] - 1-2 days Time of Disposition: 17:11
--- NOTE | 2018-07-21 17:07 | XR ---
EXAMINATION TYPE: XR KUB DATE OF EXAM: 07/21/2018 5:02 PM CLINICAL HISTORY: Concern for gastrostomy tube dysfunction TECHNIQUE: Single supine view of the abdomen was performed following the administration of 30 cc of I sovue-[id number] injected via a previously placed gastrostomy tube. COMPARISON: None. FINDINGS: Following the administration of contrast via a previously placed gastrostomy tube there is opacificat ion of the gastric lumen. No extravasation. Limited evaluation of the lower thorax is unremarkable. T here is no evidence of dilated loops of large or small bowel. Levoscoliosis of the mid lumbar spine. Included osseous structures appear intact. IMPRESSION: 1. Appropriately positioned gastrostomy tube. 2. No evidence of acute intra-abdominal process.
[2018-07-21 17:51] VITALS: BP 110/64; RESP 18; TEMP 98
== END 2018-07-21 17:40 | disposition home or self-care (01) ==
LOC: EC 14:55
DX: K94.23 Gastrostomy malfunction (principal); E11.9 Type 2 diabetes mellitus without complications; J45.909 Unspecified asthma, uncomplicated; E78.5 Hyperlipidemia, unspecified; I10 Essential (primary) hypertension; H91.90 Unspecified hearing loss, unspecified ear; E78.00 Pure hypercholesterolemia, unspecified; F41.9 Anxiety disorder, unspecified; Z88.1 Allergy status to other antibiotic agents; Z88.6 Allergy status to analgesic agent; Z91.048 Other nonmedicinal substance allergy status; Z79.4 Long term (current) use of insulin; Z79.51 Long term (current) use of inhaled steroids; Z79.899 Other long term (current) drug therapy
CPT/HCPCS: 74018; 99283; 43760; Q9967

== ENCOUNTER → 2018-10-09 | Outpatient (CLI) | payer MEDICARE, OTHER ==
[2018-10-09 15:25] LABS: Anisocytosis Slight; Basophils % (A) 0 %; Eosinophils # (A) 0.2 k/uL (0-0.7); Eosinophils % (A) 2 %; HCT 38.7 % (34.0-46.0); HGB 12.6 gm/dL (11.4-16.0); Lymphocytes # (A) 1.4 k/uL (1.0-4.8); Lymphocytes % (A) 13 %; MCHC 32.6 g/dL (31.0-37.0); MCV 101.2 fL (80.0-100.0); Macrocytosis Slight; Mean Platelet Volume 7.6; Monocytes # (A) 0.4 k/uL (0-1.0); Monocytes % (A) 4 %; Neutrophils % (A) 80 %; Platelet Count 136 k/uL (150-450); RBC 3.82 m/uL (3.80-5.40); RDW 16.3 % (11.5-15.5); WBC 11.3 k/uL (3.8-10.6)
[2018-10-09 17:53] LABS: Parathyroid Hormone Intact 76.8 pg/mL (14.0-72.0)
[2018-10-09 18:01] LABS: Iron Saturation 35.02 (12.00-45.00)
[2018-10-09 18:10] LABS: Vitamin D 25 Hydroxy 31.8 ng/mL (30.0-100.0)
[2018-10-09 18:12] LABS: Albumin 3.7 g/dL (3.80-4.90); Anion Gap 12.9 mmol/L (4.00-12.00); Calcium 9.4 mg/dL (8.7-10.3); Carbon Dioxide 30.1 mmol/L (21.6-31.8); Magnesium 2.2 mg/dL (1.5-2.4); Phosphorus 3.9 mg/dL (2.4-5.1); Potassium 4.8 mmol/L (3.5-5.5); Uric Acid 7.5 mg/dL (2.9-7.7)
== END | disposition home or self-care (01) ==
LOC: LABWHC1 14:30
PROVIDERS: ATTEND Internal Medicine Nephrology
DX: R80.9 Proteinuria, unspecified (principal); N18.3 Chronic kidney disease, stage 3 (moderate); E55.9 Vitamin D deficiency, unspecified; E21.3 Hyperparathyroidism, unspecified; M10.9 Gout, unspecified; N39.0 Urinary tract infection, site not specified; D63.1 Anemia in chronic kidney disease
CPT/HCPCS: 36415; 80048; 82040; 82306; 82728; 83540; 83550; 83735; 83970; 84100; 84550; 85025

== ENCOUNTER → 2018-12-19 | Outpatient (CLI) | payer MEDICARE, OTHER ==
--- NOTE | 2018-12-21 09:58 | MM ---
Reason for exam: screening (asymptomatic). Last mammogram was performed 1 year ago. History: Patient is postmenopausal. Family history of breast cancer in maternal cousin. Took hormonal contraceptives for 2 years beginning at age 23. Physical Findings: A clinical breast exam by your physician is recommended on an annual basis and results should be correlated with mammographic findings. MG 3D Screening Mammo W/Cad Bilateral CC and MLO view(s) were taken. Prior study comparison: December 05, 2017, bilateral MG screening mammo w CAD. January 22, 2015, bilateral MG screening mammo w CAD. There are scattered fibroglandular densities. No significant changes when compared with prior studies. ASSESSMENT: Benign, BI-RAD 2 RECOMMENDATION: Routine screening mammogram of both breasts in 1 year.
== END | disposition home or self-care (01) ==
LOC: RADMAMWWP 13:12
PROVIDERS: ATTEND Family Medicine
DX: Z12.31 Encounter for screening mammogram for malignant neoplasm of breast (principal)
CPT/HCPCS: 77063; 77067

== ENCOUNTER 2019-02-17 19:15 | Emergency (ER) | payer MEDICARE, OTHER ==
--- NOTE | 2019-02-17 20:38 | ED ---
General Adult HPI - General Chief complaint: Recheck/Abnormal Lab/Rx Stated complaint: Peg Tube issues Time Seen by Provider: 02/17/19 19:48 Source: patient, family, RN notes reviewed, old records reviewed Mode of arrival: wheelchair Limitations: physical limitation - History of Present Illness Initial comments: 68-year-old female presents with dislodged PEG tube. Patient's son who is her primary caregiver had accidentally withdrawn the PEG tube. There was some minimal bleeding at the site and some pain associated with this. PEG tube had been functioning well and was placed over one year ago. - Related Data Home Medications Medication Instructions Recorded Confirmed Oxybutynin Chloride [Ditropan] 10 mg PEG/G-TUBE TID 03/23/14 05/21/18 Ferrous Sulfate [Feosol] 325 mg PEG/G-TUBE DAILY 10/31/15 05/21/18 Omeprazole [PriLOSEC] 20 mg PEG/G-TUBE DAILY 10/31/15 05/21/18 traMADol HCL [Ultram] 50 mg PEG/G-TUBE Q6HR PRN 02/21/17 05/21/18 Allopurinol [Zyloprim] 100 mg PEG/G-TUBE DAILY 05/21/17 05/21/18 Carvedilol [Coreg] 3.125 mg PEG/G-TUBE BID 05/21/17 05/21/18 Furosemide [Lasix] 40 mg PEG/G-TUBE BID 05/21/17 05/21/18 Simvastatin [Zocor] 40 mg PEG/G-TUBE HS 05/21/17 05/21/18 Albuterol Nebulized [Ventolin 2.5 mg INHALATION RT-Q6H PRN 05/26/17 05/21/18 Nebulized] Cholecalciferol [Vitamin D3] 400 unit PEG/G-TUBE DAILY 05/26/17 05/21/18 Fluticasone/Salmeterol [Advair 1 puff INHALATION RT-BID 05/26/17 05/21/18 500-50 Diskus] Albuterol Inhaler [Ventolin Hfa 2 puff INHALATION RT-Q4H PRN 03/03/18 05/21/18 Inhaler] Ondansetron [Zofran ODT] 4 mg PO Q6H PRN 03/03/18 05/21/18 Insulin Aspart [NovoLOG Flexpen] 10 units SQ AC-TID 05/21/18 05/21/18 Insulin Detemir (Levemir) [Levemir] 30 unit SQ DAILY 05/21/18 05/21/18 Jevity 1 Gautam 3,000 ml PEG/G-TUBE DAILY 05/21/18 05/21/18 QUEtiapine FUMARATE [SEROquel] 300 mg PEG/G-TUBE HS 05/21/18 05/21/18 Sacubitril/Valsartan [Entresto 49 1 tab PEG/G-TUBE BID 05/21/18 05/21/18 mg-51 mg Tablet] clonazePAM [KlonoPIN] 0.5 mg PEG/G-TUBE TID PRN 05/21/18 05/21/18 Previous Rx's Medication Instructions Recorded Levofloxacin [Levaquin] 500 mg PO DAILY@1600 #10 tab 05/28/18 Allergies Allergy/AdvReac Type Severity Reaction Status Date / Time aloe AdvReac Mild Itching Verified 02/17/19 19:32 aspirin AdvReac Kidney Verified 02/17/19 19:32 issues cefepime AdvReac Hallucinati Verified 02/17/19 19:32 ons Review of Systems ROS Statement: Those systems with pertinent positive or pertinent negative responses have been documented in the HPI. ROS Other: All systems not noted in ROS Statement are negative. Past Medical History Past Medical History: Atrial Fibrillation, Asthma, CVA/TIA, Diabetes Mellitus, Hearing Disorder / Deafness, Hyperlipidemia, Hypertension, Renal Disease, Skin Disorder Additional Past Medical History / Comment(s): hypercholesterol, basestem stroke 2016, difficulty swallowing, pt has peg tube History of Any Multi-Drug Resistant Organisms: None Reported Past Surgical History: No Surgical Hx Reported Additional Past Surgical History / Comment(s): PEG tube, skin graft on left thigh 2016 at [facility] Past Anesthesia/Blood Transfusion Reactions: No Reported Reaction Past Psychological History: Anxiety Smoking Status: Never smoker Past Alcohol Use History: None Reported Past Drug Use History: None Reported - Past Family History Mother Family Medical History: No Reported History General Exam Limitations: physical limitation General appearance: alert, in no apparent distress Head exam: Present: atraumatic, normocephalic Eye exam: Present: normal appearance, PERRL ENT exam: Present: normal exam Neck exam: Present: normal inspection. Absent: tenderness, meningismus Respiratory exam: Present: normal lung sounds bilaterally. Absent: respiratory distress Cardiovascular Exam: Present: regular rate, normal rhythm GI/Abdominal exam: Present: soft, distended, other (No bleeding at the insertion site with no signs of infection.). Absent: tenderness, guarding Course Vital Signs 02/17/19 19:29 Temperature 98.3 F Pulse Rate 66 Respiratory 18 Rate Blood Pressure 96/65 O2 Sat by Pulse 95 Oximetry Medical Decision Making - Medical Decision Making Patient with dislodged PEG tube. PEG tube is replaced the emergency department with some resistance, patient tolerated this procedure well. Previous PEG tube had a defect in the balloon. X-ray with contrast was obtained, this shows placement of PEG tube in satisfactory position, no extravasation. Patient will be discharged home with outpatient follow-up. Disposition Clinical Impression: PEG tube malfunction Disposition: HOME SELF-CARE Condition: Fair Instructions (If sedation given, give patient instructions): PEG Tube Insertion (DC), How to Use and Care for Your PEG Tube (ED) Is patient prescribed a controlled substance at d/c from ED?: No Referrals: Vishnu Malone MD [Primary Care Provider] - 1-2 days Calvin Genao MD [Medical Doctor] - 1-2 days Time of Disposition: 20:38
--- NOTE | 2019-02-17 21:00 | XR ---
EXAMINATION TYPE: XR KUB DATE OF EXAM: 02/17/2019 COMPARISON: NONE HISTORY: PEG tube insertion TECHNIQUE: 2 views FINDINGS: 2 images were obtained and show contrast injected into the gastrostomy tube. The contrast a ppears to flow into the body and fundus of the stomach. I see no extravasation. IMPRESSION: PEG tube appears to be in good position in the stomach.
[2019-02-17 21:15] VITALS: BP 115/75; PULSE 74; RESP 16; TEMP 98
== END 2019-02-17 21:15 | disposition home or self-care (01) ==
LOC: EC 19:15
DX: K94.23 Gastrostomy malfunction (principal); I48.91 Unspecified atrial fibrillation; E78.5 Hyperlipidemia, unspecified; I10 Essential (primary) hypertension; E11.9 Type 2 diabetes mellitus without complications; E78.00 Pure hypercholesterolemia, unspecified; F41.9 Anxiety disorder, unspecified; J45.909 Unspecified asthma, uncomplicated; Z79.02 Long term (current) use of antithrombotics/antiplatelets; Z79.51 Long term (current) use of inhaled steroids; Z79.4 Long term (current) use of insulin; Z79.899 Other long term (current) drug therapy; Z88.6 Allergy status to analgesic agent; Z88.1 Allergy status to other antibiotic agents; Z91.048 Other nonmedicinal substance allergy status; Z86.73 Personal history of transient ischemic attack (TIA), and cerebral infarction without residual deficits
CPT/HCPCS: 43762; 74018; 99283

== ENCOUNTER 2019-02-19 17:39 | Emergency (ER) | payer MEDICARE, OTHER ==
[2019-02-19 17:45] VITALS: RESP 18
--- NOTE | 2019-02-19 18:59 | ED ---
General Adult HPI - General Chief complaint: Recheck/Abnormal Lab/Rx Stated complaint: feeding tube came out-revisit Time Seen by Provider: 02/19/19 18:03 Source: patient Mode of arrival: wheelchair Limitations: no limitations - History of Present Illness Initial comments: 68-year-old female patient presents to the emergency department today for evaluation of a misplaced PEG tube. Patient's family states that she had a new one placed in the emergency department on 02/17/2019. States that been having difficulty with feedings. He states that they tube did fall a believe a piece was left in the abdomen. Patient denies any significant pain to the abdomen. Denies any other concerns. Patient denies any recent rash, fever, chills, shortness breath, chest pain, abdominal pain, nausea, vomiting, diarrhea, constipation, back pain, numbness, tingling, dizziness, weakness, hematuria, dysuria, urinary urgency, urinary frequency, headache, visual changes, or any other complaints. - Related Data Home Medications Medication Instructions Recorded Confirmed Oxybutynin Chloride [Ditropan] 10 mg PEG/G-TUBE TID 03/23/14 02/19/19 Ferrous Sulfate [Feosol] 325 mg PEG/G-TUBE DAILY 10/31/15 02/19/19 Omeprazole [PriLOSEC] 20 mg PEG/G-TUBE DAILY 10/31/15 02/19/19 traMADol HCL [Ultram] 50 mg PEG/G-TUBE Q6HR PRN 02/21/17 02/19/19 Allopurinol [Zyloprim] 100 mg PEG/G-TUBE DAILY 05/21/17 02/19/19 Furosemide [Lasix] 40 mg PEG/G-TUBE BID 05/21/17 02/19/19 Simvastatin [Zocor] 40 mg PEG/G-TUBE HS 05/21/17 02/19/19 Albuterol Nebulized [Ventolin 2.5 mg INHALATION RT-Q6H PRN 05/26/17 02/19/19 Nebulized] Cholecalciferol [Vitamin D3] 400 unit PEG/G-TUBE DAILY 05/26/17 02/19/19 Fluticasone/Salmeterol [Advair 1 puff INHALATION RT-BID 05/26/17 02/19/19 500-50 Diskus] Albuterol Inhaler [Ventolin Hfa 2 puff INHALATION RT-Q4H PRN 03/03/18 02/19/19 Inhaler] Ondansetron [Zofran ODT] 4 mg PEG/G-TUBE Q6H PRN 03/03/18 02/19/19 Insulin Aspart [NovoLOG Flexpen] 10 units SQ AC-TID 05/21/18 02/19/19 Insulin Detemir (Levemir) [Levemir] 30 unit SQ DAILY 05/21/18 02/19/19 Jevity 1 Gautam 3,000 ml PEG/G-TUBE DAILY 05/21/18 02/19/19 QUEtiapine FUMARATE [SEROquel] 300 mg PEG/G-TUBE HS 05/21/18 02/19/19 Sacubitril/Valsartan [Entresto 49 1 tab PEG/G-TUBE BID 05/21/18 02/19/19 mg-51 mg Tablet] clonazePAM [KlonoPIN] 0.5 mg PEG/G-TUBE TID PRN 05/21/18 02/19/19 Allergies Allergy/AdvReac Type Severity Reaction Status Date / Time aloe AdvReac Mild Itching Verified 02/19/19 18:18 aspirin AdvReac Kidney Verified 02/19/19 18:18 issues cefepime AdvReac Hallucinati Verified 02/19/19 18:18 ons Review of Systems ROS Statement: Those systems with pertinent positive or pertinent negative responses have been documented in the HPI. ROS Other: All systems not noted in ROS Statement are negative. Past Medical History Past Medical History: Atrial Fibrillation, Asthma, CVA/TIA, Diabetes Mellitus, Hearing Disorder / Deafness, Hyperlipidemia, Hypertension, Renal Disease, Skin Disorder Additional Past Medical History / Comment(s): hypercholesterol, basestem stroke 2016, difficulty swallowing, pt has peg tube History of Any Multi-Drug Resistant Organisms: None Reported Past Surgical History: No Surgical Hx Reported Additional Past Surgical History / Comment(s): PEG tube, skin graft on left thigh 2016 at [facility] Past Anesthesia/Blood Transfusion Reactions: No Reported Reaction Past Psychological History: Anxiety Smoking Status: Never smoker Past Alcohol Use History: None Reported Past Drug Use History: None Reported - Past Family History Mother Family Medical History: No Reported History General Exam Limitations: no limitations General appearance: alert, in no apparent distress, other (Physical well- developed, well-nourished elderly female patient in no acute distress. Vital signs upon presentation are temperature 98.0F, pulse 88, respirations 18, blood pressure 126/65, pulse ox 98% on room air) Eye exam: Present: normal appearance, PERRL, EOMI. Absent: scleral icterus, conjunctival injection, periorbital swelling Respiratory exam: Present: normal lung sounds bilaterally. Absent: respiratory distress, wheezes, rales, rhonchi, stridor Cardiovascular Exam: Present: regular rate, normal rhythm, normal heart sounds. Absent: systolic murmur, diastolic murmur, rubs, gallop, clicks GI/Abdominal exam: Present: soft, normal bowel sounds, other (There is pain to the insertion site noted to the mid abdomen, PEG is currently in place, no bleeding or drainage noted.). Absent: distended, tenderness, guarding, rebound, rigid Neurological exam: Present: alert, oriented X3, CN II-XII intact Psychiatric exam: Present: normal affect, normal mood Skin exam: Present: warm, dry, intact, normal color. Absent: rash Course Vital Signs 02/19/19 17:41 Temperature 98 F Pulse Rate 88 Respiratory 18 Rate Blood Pressure 126/65 O2 Sat by Pulse 98 Oximetry Medical Decision Making - Medical Decision Making 68-year-old female patient is brought into the emergency department today for evaluation of it displaced PEG tube. Physical examination did reveal a PEG placement site in the mid abdomen. The PEG tube was loosely placed inside the os. Family was concerned that part of the tube detached and remains inside of the abdomen, because they were unable to see the balloon. Upon inspection of the tube it appears intact. The balloon had deflated due to a leak. I did replace the tube with an 18Fr PEG replacement tube. XR was obtained for placement and showed proper tube placement within the stomach. Patient tolerated procedure well. Patient will be discharged to follow-up with the primary care physician for recheck in 1-2 days. Return parameters discussed in detail. They verbalize understanding and agreed with this plan. - Radiology Data Radiology results: report reviewed, image reviewed One view x-ray of the abdomen is obtained. Report reviewed in its entirety. Impression by Dr. Gwen Cifuentes shows PEG tube placement within the stomach. Disposition Clinical Impression: PEG tube malfunction Disposition: HOME SELF-CARE Condition: Good Instructions (If sedation given, give patient instructions): How to Use and Care for Your PEG Tube (ED) Additional Instructions: Follow-up with your primary care physician for recheck in 1-2 days. Return to the emergency department immediately for any new, worsening, or concerning symptoms. Is patient prescribed a controlled substance at d/c from ED?: No Referrals: Vishnu Malone MD [Primary Care Provider] - 1-2 days Time of Disposition: 20:20
--- NOTE | 2019-02-19 20:16 | XR ---
EXAMINATION TYPE: XR abdomen 1V DATE OF EXAM: 02/19/2019 COMPARISON: NONE HISTORY: PEG tube placement TECHNIQUE: PEG tube was injected with 30 mL of Omnipaque 300, immediately prior to the overhead supin e portable radiograph centered over the mid abdomen. FINDINGS: There is contrast opacification of the PEG tube catheter and the gastric body and fundus. No incidental findings. IMPRESSION: PEG tube placement within the stomach.
[2019-02-19 21:02] VITALS: BP 102/65; PULSE 82; TEMP 98.3
== END 2019-02-19 21:02 | disposition home or self-care (01) ==
LOC: EC 17:39
DX: K94.23 Gastrostomy malfunction (principal); J45.909 Unspecified asthma, uncomplicated; E11.9 Type 2 diabetes mellitus without complications; E78.5 Hyperlipidemia, unspecified; E78.00 Pure hypercholesterolemia, unspecified; I10 Essential (primary) hypertension; F41.9 Anxiety disorder, unspecified; Z79.4 Long term (current) use of insulin; Z79.51 Long term (current) use of inhaled steroids; Z79.899 Other long term (current) drug therapy; Z88.1 Allergy status to other antibiotic agents; Z88.6 Allergy status to analgesic agent; Z91.048 Other nonmedicinal substance allergy status
CPT/HCPCS: 43762; 74018; 99283

== ENCOUNTER 2019-02-21 11:59 | Day surgery (SDC) | payer MEDICARE, OTHER ==
[2019-02-21 12:32] VITALS: RESP 16; TEMP 97.9
[2019-02-21] MEDS ORDERED: LIDOCAINE 1% 20 ML VIAL (10MG/ML) FOR IV START INTRADERMA ONE (12:47)
[2019-02-21] MEDS ORDERED: LACTATED RINGERS 1,000 ML IV ONE (12:47)
[2019-02-21 12:56] LABS: Glucose,Whole Blood 128 mg/dL (75-99)
[2019-02-21] MEDS ORDERED: LIDOCAINE 1% INJ 10MG/ML (20 ML MDV) ONE (13:05)
[2019-02-21] MEDS ORDERED: PROPOFOL 10 MG/ML 20 ML VIAL IV ONE (13:05)
[2019-02-21] MEDS ORDERED: fentaNYL (PF) 50 MCG/ML 2 ML AMP ONE (13:05)
--- NOTE | 2019-02-21 13:44 | P.PCN ---
Date of Procedure: 02/21/19 Procedure(s) Performed: Preoperative Dx: Malfunctioning gastrostomy tube Postoperative Dx: Same Procedure: EGD with PEG tube replacement Anesthesia: Sedation Endoscopist: Dr. Genao Specimens: None Endoscopic Procedure: The patient was on the endoscopy table in the left decubitus position. The Olympus gastroscope was inserted into the oropharynx and passed under direct visualization to the stomach. The patient had a 18- Dutch balloon gastrostomy replacement tube that was present in the stomach. I could visualize particulate matter at the tip of the catheter suggesting medications likely were trapped and clogging up the end of the tubing. This was removed without difficulty. A 20-Dutch replacement Ponsky non-balloon catheter was placed. No bleeding was seen. The patient had evidence of mild gastritis. Duodenum appeared normal. Esophagus appeared normal. The patient was then taken to the recovery room in stable condition per anesthesia guidelines. Recommendations: Resume using her PEG tube
[2019-02-21 14:19] VITALS: BP 130/75; PULSE 74
== END 2019-02-21 15:10 | disposition home or self-care (01) ==
LOC: ORWHC2ENDO 11:59
PROVIDERS: ATTEND Surgery
DX: K94.23 Gastrostomy malfunction (principal); I48.91 Unspecified atrial fibrillation; J45.909 Unspecified asthma, uncomplicated; E11.9 Type 2 diabetes mellitus without complications; H91.90 Unspecified hearing loss, unspecified ear; I12.9 Hypertensive chronic kidney disease with stage 1 through stage 4 chronic kidney disease, or unspecified chronic kidney disease; E11.22 Type 2 diabetes mellitus with diabetic chronic kidney disease; N18.9 Chronic kidney disease, unspecified; E78.00 Pure hypercholesterolemia, unspecified; F41.9 Anxiety disorder, unspecified; E78.5 Hyperlipidemia, unspecified; J44.9 Chronic obstructive pulmonary disease, unspecified; Z86.73 Personal history of transient ischemic attack (TIA), and cerebral infarction without residual deficits; Z79.51 Long term (current) use of inhaled steroids; Z79.4 Long term (current) use of insulin; Z79.891 Long term (current) use of opiate analgesic; Z79.899 Other long term (current) drug therapy; Z88.6 Allergy status to analgesic agent; Z88.1 Allergy status to other antibiotic agents; Z91.09 Other allergy status, other than to drugs and biological substances
CPT/HCPCS: 43246; J2001; J3010; J2704

== ENCOUNTER → 2019-03-04 | Outpatient (CLI) | payer MEDICARE, OTHER ==
[2019-03-04 15:06] LABS: Basophils % (A) 0 %; Eosinophils # (A) 0.2 k/uL (0-0.7); Eosinophils % (A) 2 %; HCT 35.4 % (34.0-46.0); HGB 11.4 gm/dL (11.4-16.0); Lymphocytes # (A) 1.1 k/uL (1.0-4.8); Lymphocytes % (A) 10 %; MCH 31.2 pg (25.0-35.0); MCHC 32.1 g/dL (31.0-37.0); MCV 97.2 fL (80.0-100.0); Mean Platelet Volume 7.8; Monocytes # (A) 0.5 k/uL (0-1.0); Monocytes % (A) 4 %; Neutrophils # (A) 9.1 k/uL (1.3-7.7); Neutrophils % (A) 82 %; Platelet Count 180 k/uL (150-450); RBC 3.65 m/uL (3.80-5.40); RDW 15.2 % (11.5-15.5)
[2019-03-04 19:39] LABS: Iron Saturation 27.27 (12.00-45.00)
[2019-03-04 19:47] LABS: Vitamin D 25 Hydroxy 30.5 ng/mL (30.0-100.0)
[2019-03-04 19:51] LABS: African American GFR (CKD) 48.1 (60.0-200.0); Albumin 3.6 g/dL (3.80-4.90); Anion Gap 12.9 mmol/L (4.00-12.00); BUN/Creat Ratio 40.77 Ratio (12.00-20.00); Calcium 9.4 mg/dL (8.7-10.3); Carbon Dioxide 28.1 mmol/L (21.6-31.8); Magnesium 2.1 mg/dL (1.5-2.4); Phosphorus 3.6 mg/dL (2.4-5.1); Potassium 4.1 mmol/L (3.5-5.5); Uric Acid 7.4 mg/dL (2.9-7.7)
[2019-03-04 21:06] LABS: Parathyroid Hormone Intact 73.6 pg/mL (14.0-72.0)
== END | disposition home or self-care (01) ==
LOC: LABWHC1 13:51
PROVIDERS: ATTEND Nurse Practitioner Family
DX: N18.3 Chronic kidney disease, stage 3 (moderate) (principal); E55.9 Vitamin D deficiency, unspecified; E21.3 Hyperparathyroidism, unspecified; N39.0 Urinary tract infection, site not specified
CPT/HCPCS: 36415; 80048; 82040; 82306; 82728; 83540; 83550; 83735; 83970; 84100; 84550; 85025

== ENCOUNTER → 2019-06-26 | Outpatient (CLI) | payer MEDICARE, OTHER ==
[2019-06-26 16:43] LABS: Appearance,Urine Cloudy (Clear); Bacteria,Urine Moderate /hpf; Bilirubin,Urine Negative (Negative); Blood,Urine Small (Negative); Budding Yeast,Urine Few /hpf; Color,Urine Light Yellow; Glucose,Urine (UA) Negative (Negative); Ketones,Urine Negative (Negative); Leukocyte Esterase,Urine Large (Negative); Mucus,Urine Rare /hpf; Nitrite,Urine Negative (Negative); Protein,Urine Trace (Negative); RBC,Urine 7 /hpf (0-5); Specific Gravity,Urine 1.007 (1.001-1.035); Squamous Epithelial Cell,Urine 4 /hpf (0-4); Urobilinogen,Urine <2.0 mg/dL (<2.0)
[2019-06-26 16:45] LABS: Basophils # (A) 0.1 k/uL (0-0.2); Basophils % (A) 1 %; Eosinophils # (A) 0.2 k/uL (0-0.7); Eosinophils % (A) 2 %; HCT 32.9 % (34.0-46.0); HGB 11.3 gm/dL (11.4-16.0); Lymphocytes # (A) 0.6 k/uL (1.0-4.8); Lymphocytes % (A) 5 %; MCH 32.7 pg (25.0-35.0); MCHC 34.3 g/dL (31.0-37.0); MCV 95.2 fL (80.0-100.0); Monocytes # (A) 0.4 k/uL (0-1.0); Monocytes % (A) 3 %; Neutrophils # (A) 11.6 k/uL (1.3-7.7); Neutrophils % (A) 88 %; Platelet Count 144 k/uL (150-450); RBC 3.46 m/uL (3.80-5.40); WBC 13.2 k/uL (3.8-10.6)
[2019-06-26 23:41] LABS: Iron Saturation 17.51 (12.00-45.00); Iron(FE) 45 ug/dL (50-170)
[2019-06-27 00:15] LABS: African American GFR (CKD) 30.2 (60.0-200.0); Anion Gap 14.1 mmol/L (4.00-12.00); BUN/Creat Ratio 41.58 Ratio (12.00-20.00); Calcium 9.8 mg/dL (8.7-10.3); Carbon Dioxide 27.9 mmol/L (21.6-31.8); Magnesium 2.4 mg/dL (1.5-2.4); Phosphorus 4.8 mg/dL (2.4-5.1); Potassium 5.2 mmol/L (3.5-5.5); Uric Acid 9.4 mg/dL (2.9-7.7)
[2019-06-27 00:41] LABS: Hepatitis B Surface Antigen Non-Reactive (Non-Reactive)
[2019-06-27 00:42] LABS: Hepatitis A Antibody IgM Non-Reactive (Non-Reactive); Hepatitis B Core IgM Non-Reactive (Non-Reactive); Hepatitis C IgG Antibody Non-Reactive (Non-Reactive)
[2019-06-27 01:45] LABS: DNA Double-Stranded NEGATIVE (NEGATIVE)
[2019-06-27 14:10] LABS: C-ANCA <1:20 Titer (<1:20)
== END | disposition home or self-care (01) ==
LOC: LABWHC1 14:51
PROVIDERS: ATTEND Nurse Practitioner Family
DX: N18.3 Chronic kidney disease, stage 3 (moderate) (principal); D63.1 Anemia in chronic kidney disease; R80.9 Proteinuria, unspecified; K76.89 Other specified diseases of liver; E55.9 Vitamin D deficiency, unspecified; N25.81 Secondary hyperparathyroidism of renal origin; M10.9 Gout, unspecified; N39.0 Urinary tract infection, site not specified
CPT/HCPCS: 36415; 80048; 80074; 81001; 82040; 82306; 82570; 83516; 83540; 83550; 83735; 83883; 83970; 84100; 84166; 84550; 85025; 86038; 86160; 86162; 86225; 86255; 87077; 87086; 87186

== ENCOUNTER 2019-06-27 13:46 | Emergency (ER) | payer MEDICARE, OTHER ==
[2019-06-27 13:53] VITALS: RESP 18; TEMP 97.3
[2019-06-27] MEDS ORDERED: SODIUM CHLORIDE 0.9% 1,000 ML IV STA (14:00)
[2019-06-27 14:38] LABS: Anisocytosis Slight; Basophils # (A) 0.1 k/uL (0-0.2); Basophils % (A) 0 %; Eosinophils # (A) 0.3 k/uL (0-0.7); Eosinophils % (A) 3 %; HCT 35.6 % (34.0-46.0); HGB 12.2 gm/dL (11.4-16.0); Lymphocytes # (A) 0.8 k/uL (1.0-4.8); Lymphocytes % (A) 7 %; MCH 32.5 pg (25.0-35.0); MCHC 34.1 g/dL (31.0-37.0); MCV 95.2 fL (80.0-100.0); Mean Platelet Volume 6.9; Monocytes # (A) 0.4 k/uL (0-1.0); Monocytes % (A) 4 %; Neutrophils % (A) 85 %; Platelet Count 142 k/uL (150-450); RBC 3.74 m/uL (3.80-5.40); WBC 11.8 k/uL (3.8-10.6)
--- NOTE | 2019-06-27 14:40 | ED ---
Recheck HPI - General Chief Complaint: Recheck/Abnormal Lab/Rx Stated Complaint: Low sodium Time Seen by Provider: 06/27/19 13:59 Source: patient Mode of arrival: wheelchair Limitations: no limitations - History of Present Illness Initial Comments: Dictation was produced using [employer] dictation software. please excuse any grammatical, word or spelling errors. Chief Complaint: 69-year-old female with past medical history of atrial fibrillation, asthma, kidney disease presents with abnormal outpatient labs. History of Present Illness: His 69-year-old female she was instructed come to the emergency department for abnormal outpatient labs. Patient had labs drawn yesterday as pre-appointment labs to see wind turbine service technician Dr. Nunez. Patient was found to have hyponatremia 125. She was told to come to the emergency departme . Patient has no complaints at this time. She feels at baseline. She reports that she absolutely does not want stay in the hospital. Denies any chest pain or shortness of breath. Patient has a history of asthma and lives with daily dyspnea. The ROS documented in this emergency department record has been reviewed and confirmed by me. Those systems with pertinent positive or negative responses have been documented in the HPI. All other systems are other negative and/or noncontributory. PHYSICAL EXAM: General Impression: Alert and oriented x3, not in acute distress HEENT: Normocephalic atraumatic, extra-ocular movements intact, pupils equal and reactive to light bilaterally, mucous membranes moist. Cardiovascular: Heart regular rate and rhythm, S1&S2 audible, no murmurs, rubs or gallops Chest: Diffuse lung crackles Abdomen: Bowel sounds present, abdomen soft, non-tender, non-distended, no organomegaly Musculoskeletal: Pulses present and equal in all extremities, no peripheral edema Motor: no focal deficits noted Neurological: CN II-XII grossly intact, no focal motor or sensory deficits noted Skin: Intact with no visualized rashes Psych: Normal affect and mood ED course: 69-year-old female presents with abnormal outpatient sodium level 125. Vital signs upon arrival are within acceptable limits. Patient is asymptomatic at this time. She reports feeling baseline. Return evaluation obtained. Monocytosis of 11.8. Severe around patient's baseline. She has a platelet count 142 which is slightly the press. Patient has potassium 5.3 sodium of 127, creatinine of 1.83 and BUN of 86. Patient given intravenous fluids. Patient given some Kayexalate. Patient expressed a desire to not be admitted to the hospital. She understands that it's my recommendation for her to be admitted observation for hyponatremia. She states she doesn't like hospitals. Discussed with patient that if her sodium gets lower that she could experience life-threatening processes including seizure and maybe even . Patient understands risks of being discharged. Patient given Kayexalate for slight elevation and potassium. EKG does not show any hyperkalemic effects. Patient told to resume her usual medications. She is told to advance salter diet. Advised follow-up with her primary care physician upon discharge for outpatient sodium management. At this point there is strong clinical suspicion of hypovolemia secondary to decreased intake. Patient will be under the care of family member who is able to provide assistance with oral intake. Patient and family member are understandable agreeable to disposition. Temperature is discussed. EKG interpretation: Ventricular rate 96, H fibrillation, QS 154, QTc 520. compared to EKG from 05/21/2018. Overall this EKG is unremarkable. - Related Data Home Medications Medication Instructions Recorded Confirmed Oxybutynin Chloride [Ditropan] 10 mg PEG/G-TUBE TID 03/23/14 06/27/19 Ferrous Sulfate [Feosol] 325 mg PEG/G-TUBE DAILY 10/31/15 06/27/19 traMADol HCL [Ultram] 50 mg PEG/G-TUBE Q6HR PRN 02/21/17 06/27/19 Allopurinol [Zyloprim] 100 mg PEG/G-TUBE DAILY 05/21/17 06/27/19 Furosemide [Lasix] 40 mg PEG/G-TUBE BID 05/21/17 06/27/19 Simvastatin [Zocor] 40 mg PEG/G-TUBE HS 05/21/17 06/27/19 Albuterol Nebulized [Ventolin 2.5 mg INHALATION RT-Q6H PRN 05/26/17 06/27/19 Nebulized] Cholecalciferol [Vitamin D3] 400 unit PEG/G-TUBE DAILY 05/26/17 06/27/19 Fluticasone/Salmeterol [Advair 1 puff INHALATION RT-BID 05/26/17 06/27/19 500-50 Diskus] Albuterol Inhaler [Ventolin Hfa 2 puff INHALATION RT-Q4H PRN 03/03/18 06/27/19 Inhaler] QUEtiapine FUMARATE [SEROquel] 300 mg PEG/G-TUBE HS 05/21/18 06/27/19 Sacubitril/Valsartan [Entresto 49 2 tab PEG/G-TUBE BID 05/21/18 06/27/19 mg-51 mg Tablet] clonazePAM [KlonoPIN] 0.5 mg PEG/G-TUBE TID PRN 05/21/18 06/27/19 Ipratropium Nebulized [Atrovent 0.5 mg INHALATION RT-Q6H PRN 06/27/19 06/27/19 Nebulized 0.2 MG/ML] Allergies Allergy/AdvReac Type Severity Reaction Status Date / Time aloe Allergy Mild Itching Verified 06/27/19 14:13 aspirin AdvReac Kidney Verified 06/27/19 14:13 issues cefepime AdvReac Hallucinati Verified 06/27/19 14:13 ons Review of Systems ROS Statement: Those systems with pertinent positive or pertinent negative responses have been documented in the HPI. ROS Other: All systems not noted in ROS Statement are negative. Past Medical History Past Medical History: Atrial Fibrillation, Asthma, CVA/TIA, Diabetes Mellitus, Hearing Disorder / Deafness, Hyperlipidemia, Hypertension, Renal Disease, Skin D isorder Additional Past Medical History / Comment(s): hypercholesterol, basestem stroke 2016, difficulty swallowing, pt has peg tube History of Any Multi-Drug Resistant Organisms: None Reported Past Surgical History: No Surgical Hx Reported Additional Past Surgical History / Comment(s): PEG tube, skin graft on left thigh 2016 at [facility]/ HX D&C Past Anesthesia/Blood Transfusion Reactions: No Reported Reaction Past Psychological History: Anxiety Smoking Status: Never smoker Past Alcohol Use History: None Reported Past Drug Use History: None Reported - Past Family History Mother Family Medical History: No Reported History General Exam Limitations: no limitations Course Vital Signs 06/27/19 06/27/19 13:48 15:03 Temperature 97.3 F L Pulse Rate 94 95 Respiratory 18 18 Rate Blood Pressure 122/59 126/82 O2 Sat by Pulse 93 L 94 L Oximetry Medical Decision Making - Lab Data Result diagrams: 06/27/19 14:30 06/27/19 14:30 Lab Results 06/27/19 06/27/19 Range/Units 14:30 14:30 WBC 11.8 H (3.8-10.6) k/uL RBC 3.74 L (3.80-5.40) m/uL Hgb 12.2 (11.4-16.0) gm/dL Hct 35.6 (34.0-46.0) % MCV 95.2 (80.0-100.0) fL MCH 32.5 (25.0-35.0) pg MCHC 34.1 (31.0-37.0) g/dL RDW 16.0 H (11.5-15.5) % Plt Count 142 L (150-450) k/uL Neutrophils % 85 % Lymphocytes % 7 % Monocytes % 4 % Eosinophils % 3 % Basophils % 0 % Neutrophils # 10.0 H (1.3-7.7) k/uL Lymphocytes # 0.8 L (1.0-4.8) k/uL Monocytes # 0.4 (0-1.0) k/uL Eosinophils # 0.3 (0-0.7) k/uL Basophils # 0.1 (0-0.2) k/uL Anisocytosis Slight Sodium 127 L (137-145) mmol/L Potassium 5.3 H (3.5-5.1) mmol/L Chloride 81 L (98-107) mmol/L Carbon Dioxide 31 H (22-30) mmol/L Anion Gap 15 mmol/L BUN 86 H (7-17) mg/dL Creatinine 1.83 H (0.52-1.04) mg/dL Est GFR (CKD-EPI)AfAm 32 (>60 ml/min/1.73 sqM) Est GFR (CKD-EPI)NonAf 27 (>60 ml/min/1.73 sqM) Glucose 165 H (74-99) mg/dL Calcium 9.7 (8.4-10.2) mg/dL Disposition Clinical Impression: Hyponatremia Disposition: HOME SELF-CARE Condition: Fair Instructions (If sedation given, give patient instructions): Hyponatremia (ED) Is patient prescribed a controlled substance at d/c from ED?: No Referrals: Vishnu Malone MD [Primary Care Provider] - 1-2 days Time of Disposition: 17:07
[2019-06-27 14:48] LABS: Calcium 9.7 mg/dL (8.4-10.2); Potassium 5.3 mmol/L (3.5-5.1)
--- NOTE | 2019-06-27 16:23 | XR ---
EXAMINATION TYPE: XR chest 2V DATE OF EXAM: 06/27/2019 COMPARISON: 05/21/2018 INDICATION: Lung crackles abnormal labs and history of asthma TECHNIQUE: Frontal and lateral views of the chest are obtained. FINDINGS: The heart size is moderately prominent.. The pulmonary vasculature is prominent. Diffuse increased lung markings are present. Correlate for early congestive heart failure. IMPRESSION: 1. Clinical correlation recommended for early congestive heart failure.
[2019-06-27] MEDS ORDERED: SODIUM POLYSTYRENE SULFONATE 15 GM/60 ML BOTTLE PO STA (17:04)
[2019-06-27 17:09] VITALS: BP 118/65; PULSE 98
== END 2019-06-27 17:44 | disposition home or self-care (01) ==
LOC: EC 13:46
DX: E87.1 Hypo-osmolality and hyponatremia (principal); D72.821 Monocytosis (symptomatic); J45.909 Unspecified asthma, uncomplicated; H91.90 Unspecified hearing loss, unspecified ear; E78.5 Hyperlipidemia, unspecified; E78.00 Pure hypercholesterolemia, unspecified; F41.9 Anxiety disorder, unspecified; Z86.73 Personal history of transient ischemic attack (TIA), and cerebral infarction without residual deficits; Z98.890 Other specified postprocedural states; Z79.51 Long term (current) use of inhaled steroids; Z79.899 Other long term (current) drug therapy; Z88.1 Allergy status to other antibiotic agents; Z88.6 Allergy status to analgesic agent; Z91.048 Other nonmedicinal substance allergy status
CPT/HCPCS: 36415; 71046; 80048; 85025; 93005; 96360; 96361; 99283